=== PATIENT | female | born 2000 | race Caucasian/White ===

== ENCOUNTER 2023-10-26 08:34 | Emergency (ER) | payer BC, SELFPAY ==
[2023-10-26 08:50] VITALS: BP 126/77; PULSE 73; RESP 19; TEMP 36.7; O2SAT 98; BMI 22.4
--- NOTE | 2023-10-26 09:09 | EXP.UTC ---
Discharge Plan Disposition Patient Disposition: Home, Self-Care Condition: Good Prescriptions Prescriptions: No Action No Known Home Medications Referrals Follow up/Referrals: Provider,Referral, [Primary Care Provider] - See instructions Activity Restrictions/Add. Instructions Additional Instructions/Restrictions: Follow up in Clinic as discussed Go straight to the ER if any life threatening symptoms Clinical Impressions Clinical Impression: Fatigue Qualifiers: Fatigue type: unspecified Qualified Code(s): R53.83 - Other fatigue Instructions Patient Instructions: DI for Fatigue Discharge ED Provider: Lucia Harman [facility] [place] HPI General Stated complaint: low bp Mode of Arrival: Ambulatory Source of Information: Patient and Parent(s) Limitations: No Limitations Time Seen by Provider: 10/26/23 09:09 Description of Symptoms (Recalled from Triage Doc. by RN): PATIENT STATES HER BLOOD PRESSURE HAS BEEN LOW FOR THE PAST 2 WEEKS AND IS FEELING FAINT HEENT Symptoms (Recalled from RN notes): No Resp Symptoms (Recalled from RN notes): No Skin Symptoms (Recalled from RN notes): No MS Symptoms (Recalled from RN notes): No Functional Status (Recalled from RN notes): WNL History of Present Illness Provider Complaint: Patient states that she has has felt fatigued on and off for about 2 week and had episodes of dizziness on and off and feeling faint but has not passed out States on Thursday it was worse and mother had her lay down and checked her blood pressure was low on the cuff at home but they wasnt sure if it was accurate and they had her drink some salt water and kept checking her blood pressure and she started feeling better States that today she is feeling better from that and started having some nasal congestion but they wanted to bring her in to have blood tests to check for for anemia and other lab work to check her vitamins and stuff Related Data Home Medications Medication Instructions Recorded Confirmed No Known Home Medications 10/26/23 10/26/23 Allergies Allergy/AdvReac Type Severity Reaction Status Date / Time amoxicillin [From Augmentin] Allergy Verified 10/26/23 10:33 clavulanic acid Allergy Verified 10/26/23 10:33 [From Augmentin] Worker's Comp Is this a Worker's Comp case?: No [facility] Disclaimer: The information contained in this section may have been updated after the patient was seen, as this information can be updated by other users. Medical History (Updated 10/26/23 @ 11:14 by Humera Meadows APRN) JRA (juvenile rheumatoid arthritis) History of anemia Family History (Updated 10/26/23 @ 10:39 by Luly Mueller CMA) Family/Other No significant family history Social History (Updated 10/26/23 @ 10:40 by Luly Mueller CMA) Smoking Status: Never smoker alcohol intake: current substance use type: denies use current occupational status: employed Travel in the last 8 weeks: None ROS Obtained: Yes All systems reviewed & no additional complaints except as documented and Yes Systems reviewed as appropriate & no additional complaints except as documented Constitutional Constitutional: Reports system reviewed and no additional complaints, except as documented, Reports as per HPI, Denies body ache, Denies chills, Reports fatigue, Denies fever(s) and Denies headache(s) Eyes Eyes: Denies loss of vision ENT Ears, Nose, Mouth, and Throat: Reports system reviewed and no additional complaints, except as documented, Reports as per HPI, Denies abnormal hearing, Reports dizziness (on and off for several weeks ) and Denies headache(s) Cardiovascular Cardiovascular: Reports system reviewed and no additional complaints, except as documented, Reports as per HPI, Denies chest pain, Denies dyspnea, Denies edema and Denies syncope Respiratory Respiratory: Reports system reviewed and no additional complaints, except as documented, Reports as per HPI, Denies shortness of breath, Denies chest congestion, Denies cough and Denies dyspnea Gastrointestinal Gastrointestingal: Reports system reviewed and no additional complaints, except as documented, as per HPI and nausea (over the weekend) Genitourinary Female Genitourinary: Reports system reviewed and no additional complaints, except as documented and Reports as per HPI Musculoskeletal Musculoskeletal: Reports system reviewed and no additional complaints, except as documented, Reports as per HPI and Denies numbness Integumentary/Breasts Skin/Breast: Reports system reviewed and no additional complaints, except as documented and Reports as per HPI Neurologic Neurologic: Reports system reviewed and no additional complaints, except as documented, Reports as per HPI, Denies abnormal hearing, Denies abnormal movements, Denies abnormal speech, Denies behavioral changes, Denies confusion, Denies convulsions, Reports dizziness (on and off for several weeks ), Denies headache(s), Denies loss of vision, Denies memory loss, Denies numbness, Denies other visual disturbances, Denies seizure-like activity, Denies syncope and Denies tremor(s) Endocrine Endocrine: Reports system reviewed and no additional complaints, except as documented, Reports as per HPI and Reports fatigue Physical Exam General General appearance: alert and in no apparent distress ENT ENT exam: Present mucous membranes moist Chest Chest inspection: Present normal inspection and symmetric chest wall rise Respiratory Respiratory exam: Present normal lung sounds bilaterally; Absent respiratory distress or wheezes Cardiovascular Cardiovascular exam: Present regular rate, normal rhythm and normal heart sounds Neurological Exam Neurological exam: Present alert, oriented X3 and normal gait Medical Decision Making Santosh Inquiry Pt receiving controlled substance: No Santosh was queried for this patient: No Vital Signs: 10/26/23 08:50 Temperature 98.1 F Temperature Source Oral Pulse Rate [Left Brachial] 73 Respiratory Rate 19 Blood Pressure [Left Arm] 126/77 Blood Pressure Mean [Left Arm] 93 Blood Pressure Source [Left Arm] Automatic Cuff Blood Pressure Position [Left Arm] Sitting 02 Sat by Pulse Oximetry 98 Oxygen Delivery Method Room Air Lab Data 10/26/23 11:33 Medical Decision Narrative: Discussed with patient about transfer to the ED and declined Discussed about speaking with PCP to get lab work done and advised they just moved here and didnt have a PCP Called and spoke with Humera Meadows and told her about patient complaints and requesting of lab work to check vitamins, anemia etc and she advised to send patient to the clinic now for further lab work and evaluation Spoke with patient and mother again and informed them again could send her to the ED for further work up and evaluation but blood pressure and HR within normal limits in the [facility] and she elected to follow up in the Clinic with Humera Meadows for further treatment and evaluation since she is feeling better today but still feeling a little fatigued
[2023-10-26 09:30] VITALS: BP 126/77; PULSE 73; RESP 19; TEMP 36.7; O2SAT 98
[2023-10-26 12:54] LABS: Basophils # 0.1 K/mm3 (0-0.2); Basophils % 1.1 % (0.1-2.0); Eosinophils # 0.6 K/mm3 (0.0-0.4); Eosinophils % 12.1 % (0.1-12.0); Hematocrit 42.9 % (37.0-47.0); Hemoglobin 13.9 g/dL (12.2-16.2); Lymphocytes # 1.8 K/mm3 (0.7-4.5); Lymphocytes % 38.6 % (10-50); Mean Corpuscular HGB Conc 32.3 g/dL (31.8-35.4); Mean Corpuscular Hemoglobin 30.4 pg (27.0-31.2); Mean Corpuscular Volume 93.9 fl (81-99); Mean Platelet Volume 8.1 fl (7.4-10.4); Monocytes # 0.4 K/mm3 (0.1-1.0); Monocytes % 8.8 % (1.7-9.3); Neutrophils # 1.9 K/mm3 (1.8-7.8); Neutrophils % 39.4 % (37.0-80.0); Platelet Count 226 K/mm3 (142-424); Red Blood Count 4.57 M/mm3 (4.20-5.40); Red Cell Distribution Width 12.7 % (11.5-17.5); White Blood Count 4.7 K/mm3 (4.8-10.8)
[2023-10-26 13:24] LABS: Erythrocyte Sedimentation Rate 17 mm/hr (0-20)
[2023-10-26 13:47] LABS: Alanine Aminotransferase 13 U/L (12-78); Albumin Level 4.7 g/dl (3.5-5.0); Albumin/Globulin Ratio 1.5 (1.1-1.8); Alkaline Phosphatase 54 U/L (38-126); Anion Gap 12.1 mEq/L (5-15); Aspartate Amino Transferase 25 U/L (14-36); Bilirubin,Total 0.4 mg/dl (0.2-1.3); Blood Urea Nitrogen 12 mg/dl (7-17); Calcium 9.4 mg/dl (8.4-10.2); Carbon Dioxide 26 mmol/L (22.0-30.0); Chloride 105 mmol/L (98-107); Creatinine Clearance Estimated 133 mL/min (50-200); Estimated Glomerular Filt Rate 124 ml/min (>60); GFR (African American) 150 ML/MIN (>60); Globulin 3.1 g/dL (1.3-3.2); Glucose 70 mg/dl (74-100); Potassium 4.1 mmoL/L (3.5-5.1); Sodium 139 mmol/L (136-145); Total Protein,Serum 7.8 g/dl (6.3-8.2); Uric Acid 2.9 mg/dl (2.5-6.2)
[2023-10-26 14:02] LABS: 25-OH Vitamin D, Total 20.9 ng/mL (30-100)
[2023-10-26 14:16] LABS: Thyroid Stimulating Hormone 0.55 uIU/mL (0.465-4.68)
[2023-10-26 14:36] LABS: Vitamin B12 488 pg/mL (239-931)
[2023-10-26 15:24] LABS: Ferritin 26.2 ng/ml (6.24-137)
[2023-10-27 08:17] LABS: RA Latex Turbid. <10.0 IU/mL (<14.0); Thyroid Peroxidase Antibodies 13 IU/mL (0-34); Triiodothyronine (T3) Free 3.1 pg/mL (2.0-4.4)
[2023-10-27 16:29] LABS: Thyroglobulin Level <1.0 IU/mL (0.0-0.9)
[2023-10-28 08:41] LABS: Antinuclear Antibodies, IFA Positive
[2023-10-29 12:30] LABS: Antinuclear Antibodies (ANA) Negative
== END 2023-10-26 09:36 | disposition home or self-care (01) ==
PROVIDERS: Nurse Practitioner Family; Emergency Provider Nurse Practitioner
DX: M08.00 Unspecified juvenile rheumatoid arthritis of unspecified site (principal); R55 Syncope and collapse; R42 Dizziness and giddiness; R53.83 Other fatigue
CPT/HCPCS: 80053; 82306; 82607; 82728; 84436; 84443; 84481; 84550; 85025; 85651; 86038; 86225; 86235; 86376; 86431; 86800; 99204; 99212; G0463

== ENCOUNTER 2024-09-28 11:53 | Outpatient (CLI) | payer BC, SELFPAY ==
[2024-09-29 12:26] LABS: Progesterone 9.7 ng/mL (.)
== END 2024-09-28 23:59 | disposition home or self-care (01) ==
LOC: LAB 11:54
PROVIDERS: PCP Nurse Practitioner Family; Visit Provider Obstetrics & Gynecology
DX: O36.80X0 Pregnancy with inconclusive fetal viability, not applicable or unspecified (principal)
CPT/HCPCS: 36415; 84144; 84702

== ENCOUNTER 2025-01-02 09:01 | Outpatient (CLI) | payer BC, SELFPAY ==
--- NOTE | 2025-01-02 09:00 | US_ITS ---
PROCEDURE: US OB /MATERNAL DETAIL CLINICAL INDICATION: 2 weeks; 20 week anatomy scan COMPARISON: No exams were available for comparison FINDINGS: Transabdominal sonographic images of the pelvis were obtained. From her established due date she is 20 weeks 0 days. Single viable intrauterine gestation. Cephalic position. Placenta: Posteriorplacenta grade 1. There is an average amount of fluid. The cervix appears satisfactory. Length is not performed. Complete survey performed and was unremarkable on the submitted images as in PACS. No discrete anomalies identified on survey imaging by technologist. Active fetus. Three-vessel cord with satisfactory umbilical cord insertion. 4- chamber heart noted. Situs, aortic arch, LVOT, RVOT, three-vessel view appear normal. Survey of brain & ventricles Unremarkable. Cerebellum, thalamus, choroid plexus, cisterna magna appear normal. Face and neck survey unremarkable. Profile, nasion, lips and nose appeared normal. Diaphragm and chest views unremarkable. Abdomen: Both kidneys noted and unremarkable. Stomach and bladder noted and satisfactory. Spine: Survey of the spine satisfactory with no anomalies identified nor imaged. Cervical, thoracic, lower spine appear normal. Both arms and legs noted. Amniotic Fluid: Adequate. MVP 3.97 cm Measurements: Average ultrasound age 20weeks 2days. Estimated due date by ultrasound age 1005/20/2025. Estimated weight 327g BPD = 20weeks 2days HC = 20weeks 2days AC = 20weeks 0 days FL = 20weeks 1day Growth Percentile= 47 Heart Rate = 153bpm Cerebellum = 20weeks Humerus = 20weeks 2days HC/AC is 1.22 FL/BPD is 0.69 FL/AC is 0.22 IMPRESSION: 1. Viable fetus in the cephalic presentation with a posterior placenta grade 1. 2. The fluid is within normal limits with an MVP 3.97 cm. 3. Anatomical scan appears normal. 4. cardiac four-chamber view was difficult to obtain due to position and would suggest repeat scan in 2-3 weeks. 5. biometry is consistent with the dates. Dictated by: Yves Brand MD 01/02/2025 12:00 Yves Brand MD in [place] 01/02/2025 12:00
== END 2025-01-02 23:59 | disposition home or self-care (01) ==
LOC: RAD 09:02
PROVIDERS: PCP Obstetrics & Gynecology; Visit Provider Obstetrics & Gynecology
DX: O36.1920 Maternal care for other isoimmunization, second trimester, not applicable or unspecified (principal); O21.2 Late vomiting of pregnancy; Z3A.20 20 weeks gestation of pregnancy
CPT/HCPCS: 76811

== ENCOUNTER 2025-01-14 15:42 | Outpatient (CLI) | payer BC, SELFPAY ==
[2025-01-14 16:31] VITALS: BMI 22.8
== END 2025-01-14 16:36 | disposition home or self-care (01) ==
LOC: OBOUT 15:44 → OB 15:45
PROVIDERS: PCP Nurse Practitioner Family; Visit Provider Obstetrics & Gynecology
DX: O26.892 Other specified pregnancy related conditions, second trimester (principal); R68.89 Other general symptoms and signs; Z3A.21 21 weeks gestation of pregnancy
CPT/HCPCS: 99212; G0463

== ENCOUNTER 2025-01-16 08:36 | Outpatient (CLI) | payer BC, SELFPAY ==
--- NOTE | 2025-01-16 08:45 | US_ITS ---
PROCEDURE: US OB FOLLOW UP CLINICAL INDICATION: 2-3 week repeat anatomy for heart views COMPARISON: US US OB /MATERNAL DETAIL from 01/02/2025 FINDINGS: Transabdominal sonographic images of the pelvis were obtained. The following parameters are obtained: From her established due date she is 22weeks 0 days Viable fetus in the cephalic presentation with a posterior placenta grade 1. The cervix measures 2.9 cm heart rate: 152bpm bpm. Amniotic fluid: MVP 2.60 cm. No obvious anomalies evident. profile seen, spine, stomach, bladder, kidneys, three-vessel cord, four chamber heart appear normal. Heart: LVOT, RVOT, three-vessel view and four-chamber heart appear normal. IMPRESSION: 1. Viable fetus in the cephalic presentation with a posterior placenta grade 1. 2. The fluid is within normal limits with an MVP 2.60 cm. 3. cardiac views today appear normal. 4. The rest of the limited anatomical scan appears normal. Dictated by: Yves Brand MD 01/16/2025 15:49 Yves Brand MD in [facility] 01/16/2025 15:49
== END 2025-01-16 23:59 | disposition home or self-care (01) ==
LOC: RAD 08:38
PROVIDERS: PCP Nurse Practitioner Family; Visit Provider Obstetrics & Gynecology
DX: O21.2 Late vomiting of pregnancy (principal); Z3A.22 22 weeks gestation of pregnancy
CPT/HCPCS: 76816

== ENCOUNTER 2025-05-30 11:54 | Outpatient (CLI) | payer BC, MEDICAID, SELFPAY ==
--- OUTSIDE RECORDS SUMMARY | 2025-04-05 09:30 | XMS_ITS | Encounter Summary ---
Author Organization Healthcare Address [address] [place] [address] Care Team Providers Care Partition Making Machine Operator Name Role Phone Humera Meadows APRN Primary Care Provider [phone] Encounter Details Date Type Department Care Team ([facility] Contact Info) Description 04/05/2025 9:30 AM EDT Initial Medical Office Building Obstetrics and Gynecology [address], [address] [place] [address] Connie Orourke APRN, DNP [address] [place] [address] GA: [id number] Social History Tobacco Use Types Packs/Day Years Used Date Smoking Tobacco: Never Passive Smoke Exposure: Never Smokeless Tobacco: Never Tobacco Cessation:Counseling Given: No Alcohol Use Standard Drinks/Week Comments Not Currently 0 (1 standard drink = 0.6 oz pur e alcohol) PHQ-2 Answer Date Recorded Patient Health Questionnaire-2 Score 0 04/05/2025 PHQ-9 Answer Date Recorded Patient Health Questionnaire-9 Score 0 04/05/2025 Nicolaus Depression Scale Answer Date Recorded Nicolaus Depression Scale Total 0 04/05/2025 The thought of harming myself has occurred to me . Never 04/05/2025 Comments Yes Sex and Gender Information Value Date Recorded Sex Assigned at Not on file Legal Sex Female 10:37 AM EDT Gender Identity Not on file Sexual Orientation Straight 03/29/2025 11 :10 AM EDT documented as of this encounter Last Filed Vital Signs Vital Sign Reading Time Taken Comments Blood Pressure 121/83 04/05/2025 9:44 AM EDT Pulse 101 04/05/2025 9:44 AM EDT Temperature - - Respiratory Rate 18 04/05/2025 9:44 AM EDT Oxygen Saturation 98% 04/05/2025 9:44 AM EDT Inhaled Oxygen Concentration - - Weight 65.3 kg (143 lb 15.4 oz) 04/05/2025 9:44 AM EDT Height 165.1 cm (5' 5 ) 04/05/2025 9:44 AM EDT Body Mass Index 23.96 04/05/2025 9:44 AM EDT documented in this encounter Functional Status * Over the past 2 weeks, how often have you been bothered by any of the following problems? Question Answer Date of Assessment Author Little interest or pleasure in doing things Not at all 04/05/2025 9:46 AM Nikki Ambrose Feeling down, depressed, or hopeless Not at all 04/05/2025 9:46 AM Nikki Ambrose Patient Health Questionnaire -2 Score 0 04/05/2025 9:46 AM Nikki Ambrose * Question Answer Date of Assessment Author Trouble falling or staying asleep, or sleeping too much Not at all 04/05/2025 9:46 AM Nikki Ambrose Feeling tired or having princess le energy Not at all 04/05/2025 9:46 AM Nikki Ambrose Poor appetite or overeating Not at all 04/05/2025 9: 46 AM Nikki Ambrose Feeling bad about yourself - or that you are a failure or have let yourself or your family down Not at all 04/05/2025 9:46 AM Nikki Ambrose Trouble concentrating on things, such as reading the newspaper or watching television Not at all 04/05/2025 9:46 AM Nikki Ambrose Moving or speaking so slowly that other people could have noticed? Or the opposite - being so fidgety or restless that you have been moving around a lot more than usual. Not at all 04/05/2025 9:46 AM EDT Nikki Shay Thoughts that you would be better off or hurting yourself in some way Not at all 04/05/2025 9:46 AM EDT Richelle Tirado Patient Health Questionnaire -9 Score 0 04/05/2025 9:46 AM EDT Nikki Tirado * How difficult have these problems made it for you to do your work, take care of things at home, or get along with other people? Answer Date of Assessment Author Not difficult at all 04/05/2025 9:46 AM EDT Nikki Miramontes documented as of this encounter Miscellaneous Notes * Patient Instructions - Connie Orourke APRN, HIRAM - 04/05/2025 9:30 AM EDT Images from the original note were not included. : Your Third Trimester Changes As the baby grows, your body changes, too. You may also see signs that your body is getting ready for labor. Be patient. Within a few more weeks, your baby will be born. How you are changing Your body is preparing for the of your baby. Some of the most common changes are listed below. If you have any questions or concerns, ask your healthcare provider: You???ll gain more weight from fluids, extra blood, and fat deposits. Your breasts will grow as your body gets ready to feed the baby. They may be more tender. You may also notice a slight yellow or white discharge from the nipples. Discharge from your vagina may increase. This is normal. You might see some skin color changes on your forehead, cheeks, or nose. Most of these will go awayafter you deliver. You may have symptoms such as heartburn, trouble sleeping, and some shortness of breath due to the growing fetus. Your belly button may stick out. Near term, you may feel the baby dropping or moving downward toward the pelvis. You may get hemorrhoids from pressure of the growing baby on rectal veins. How your baby is growing Month 7 Your baby can open and close their eyes and weighs around 4 pounds (1.8 kg). The baby's bones are fully formed but soft. The baby's movements are pretty forceful. The hair on your baby's body called lanugo, starts to fall off. The lungs are not fully developed, but practice breathing movements occur. Month 8 Your baby is building up body fat and weighs around 6 pounds (2.7 kg). The protective waxy coating around the baby called vernix, gets thicker. Your baby is now getting bigger and has more fat stores. Due to reduced space in the uterus, the baby's movements may become less forceful. But you will still feel the wiggles and stretches as your little one moves. Month 9 Your baby weighs nearly 7 pounds (3.2 kg) and is about 19 to 21 inches long. The baby's organs are ready to function on their own. In most pregnancies, the baby may turn into a head-down (cephalic) position for as the due date approaches. In other words, any day now... When to call your healthcare provider Seek medical help right away for any of the following: Reduced or absent movements Bleeding or excess watery discharge from the vagina Excessive swelling in your feet, legs, or other areas of your body Severe headache, nausea, rash, bleeding from any site, or yellowing of the eyes or skin Severe belly pain or contractions Fever Adapting to : Third Trimester Although common during , some discomforts may seem worse in the final weeks. Simple lifestyle changes can help. Take care of yourself. And ask your partner to help out with small tasks. Limiting leg problems Ways to combat leg issues: Wear support hose all day. Don't wear snug shoes or clothes that bind, such as tight pants and socks with elastic tops. Sit with your feet and legs raised often. Caring for your breasts Tips to follow include: Wash with plain water. Don't use harsh soaps or rubbing alcohol. They may cause dryness. Wear a nursing bra for extra support. It can also hide any leaks from your nipples. Controlling hemorrhoids Ways to prevent hemorrhoids include: Eat foods that are high in fiber. Also exercise and drink enough fluids. This will reduce constipation and hemorrhoids. Sleep and nap on your side. This limits pressure on the veins of your rectum. Try not to stand or sit for long periods. Controlling back pain As your body changes during , your back must work in new ways. Back pain has many causes. Physical changes in your body can strain your back and its supporting muscles. Also hormones increase during . This can affect how your muscles and joints work together. All of these changes can lead to pain. Pain may be felt in the upper or lower back. Pain is also common in the pelvis. Some womenhave sciatica. This is pain caused by pressure on the sciatic nerve running down the back of the leg. Ice or heat may help. Your provider may advise massage therapy or a chiropractor. Sleep on your left side with a pillow between your knees. Use a brace or support device. Ask your provider for speci fic tips and exercises to help control your back pain. Tips to help you rest Good rest and sleep will help you feel better. Here are some ideas: Ask your partner to massage your shoulders, neck, or back. Limit the errands you do each day. Lie down in the afternoon or after work for a few minutes. Take a warm bath before you go to sleep. Drink warm milk or teas without caffeine. Don't drink coffee, black tea, and cola. Stopping heartburn Don't eat spicy, greasy, fried, or acidic foods. Eat small amounts more often. Eat slowly. Wait 2 hours after eating before lying down. Sleep with your upper body raised 6 inches. Managing mood swings Ways to manage mood swings include: Know that mood changes are normal. Exercise often, but get plenty of rest. Address any concerns and limit stress. Talking to your partner, other women, or your healthcare provider may help. Dealing with urinary frequency Tips to deal with having to urinate often include: Drink plenty of water all day. But if you drink a lot in the evening, you may have to get up more in the night. Limit coffee, black tea, and cola. How daily issues affect your health Many things in your daily life impact your health. This can include transportation, money problems,housing, access to food, and children's tutor. If you can???t get to medical appointments, you may not receive the care you need. When money is tight, it may be difficult to pay for medicines. And living far from a grocery store can make it hard to buy healthy food. If you have concerns in any of these or other areas, talk with your healthcare team. They may know of local resources to assist you. Or they may have a staff person who can help. Reasons to Come to the Hospital or Call Your Doctor During Your Reasons to come to the hospital Contractions every 5 minutes for 1 hour if greater than 37 weeks* Contractions every 10 minutes for 1 hour if less than 37 weeks* * Time contractions from the beginning of one contraction to the beginning of the next contraction. Your water breaks Vaginal bleeding like you???re having a period No movements in 2 hours when fetus is normally active Vomiting for 24 hours Any kind of fall or car accident Any sign your blood pressure may be high or that you may have preeclampsia, such as: a headache that doesn???t go away after taking Tylenol vision problems such as flashes or spots rapid weight gain belly (abdominal pain) on your right side swelling (edema) in your face or hands: this also often happens near the end of normal pregnancies,even without preeclampsia Reasons to call your doctor Symptoms of urinary tract infection (burning with urination) Fever greater than 100.5??F by mouth Flu-like symptoms Abnormal vaginal discharge Phone Numbers [facility] ([facility]): [facility] Obstetrics & Gynecology: [facility]: [facility]: Family Practice: [facility] Obstetrics & Gynecology [place]: [facility] Obstetrics & Gynecology [place]: What Is Group B Strep? Group B strep (streptococcus) is a common type of bacteria. It can grow in the vagina, rectum, or urinary tract. It most often does not cause harm in adults. But in rare cases, a person who has group B strep can infect the baby during . This can cause serious illness in the . But treatment during labor reduces the risk of the baby becoming infected. And if a gets group B strep, the infection can be treated. Facts about group B strep Learning more about group B strep can help you understand how testing and treatment can help. Here are some basic facts about group B strep: It's not a sexually transmitted infection. It's not the same as strep throat. (That is caused by group A strep.) It often has no symptoms. It may cause no problems in adults. Test results can be misleading. They may be negative one week and positive the next week. Group B strep can be spread to the baby during vaginal delivery. It can't be passed during (surgical) . A person with group B strep rarely infects the . (Infection happens only about 1% to 2% of the time.) When a person is treated during labor and delivery, the baby almost never becomes infected. Certain factors during increase the risk of a baby becoming infected. Possible effects on your baby Group B strep can infect the blood. It can also cause inflammation of the baby???s lungs, brain, orspinal cord. Long-term effects can include blindness, deafness, mental retardation, or cerebral palsy. And in rare cases, infection causes . Infection is most often found soon after the baby is born. How your baby may become infected Group B strep often lives in the vagina or rectum. If the amniotic sac breaks early, bacteria from the vagina can travel to the uterus, reaching the baby. Or, while passing through the canal, the baby can come in contact with the bacteria. In rare cases, group B strep can be passed to the baby after delivery. This is called late-onset group B strep. The source of this type of infection is not well-understood. But some experts believe that it happens if the baby is exposed to group B strepin the home, from the parents or siblings, or in the community. What increases the risk? Certain things increase the chance that a baby will be infected. They include: Breaking or leaking of the amniotic sac before 37 weeks of Labor before 37 weeks of Breaking of the amniotic sac more than 18 hours before labor starts Fever during labor A urinary tract infection with group B strep at any point in the Having a previous baby born with a group B strep infection Treating Group B Strep Testing and treatment of group B strep in your can help prevent your baby from becoming infected during . If your baby has complications due to group B strep, they may need special treatments. Early treatment gives the best chance of a good outcome. Testing Testing for the bacteria is painless. This is most often during weeks 36 through 37 of . For the test, your healthcare provider uses cotton swabs to take samples from your vagina and anus. These samples are sent to the lab. Your provider will get your test results about 2 days later. Results show if you have group B strep. To test for Group B strep, your healthcare provider takes swabs from your vagina and anus during a pelvic exam. Treatment If you have group B strep, you'll be treated with IV antibiotics. These are given through a flexible tube (catheter) in a vein in your arm or hand. You may be treated if you have not been tested but you have risk factors. The treatment is not done until you start labor. This lets the medicine protect your baby during and after . Group B strep can come back after treatment. So IV antibiotics are started during labor and also given during delivery. This should not affect the course of labor. If group B strep is diagnosed in your urine, you'll be given medicine at that time to protect you from infections of the urinary tract. After the , your baby will be observed in the hospital for 24 to 48 hours. This is to make sure that they have not been infected. Your baby???s blood may also be tested. In newborns, most cases of group B strep infection are found before the mother and baby go home. But in very rare cases, a baby may get a group B strep infection after going home. This is called a late-onset infection. Call your baby???s healthcare provider right away if your baby: Has a fever Is refusing to feed Seems stressed or is fussy and can???t be calmed Has breathing trouble Has a very fast, very low, or irregular heart rate Beginning to Breastfeed: Ctmu-ij-Ccae What is onur-tv-advo? After , your nurse will clean and dry your baby. Your baby will then be placed on your chest blpg-nz-lpir right away. Your baby???s shoulders should be against your chest, knees flexed, and headturned to the side. Your baby's head should be tilted slightly back in what is called the ???sniffing position.?? Your nurse will diaper your baby and cover you both with warm blankets. This is the best way to keep babies warm after being born. Babies are very alert right after . Your baby may actually ???crawl?? into position to breastfeed for the first time. Your baby will stay ziqb-ub-coki with you for as long as you like after . If you get too sleepy, let your nurse know. Only you or your partner can do hxgc-qi-oeqy with your baby these first few hours. Visitors may come in, but you must not pass your baby around during this time. This could cause your baby to get cold and then sick. Zoxd-ff-qkyb is a great way to remind your baby how to breast feed. It is also a way to comfort a crying baby, even after you go home. But if you get sleepy, put your baby back in the crib or have your partner or family member take her or him. Falling asleep with your baby can be dangerous. Your baby might get into a position where she or he cannot breathe. Nursing your baby will help reduce your bleeding after . It also lowers your risk of depression. Being zcpe-wn-iely with your baby can help reduce your pain after delivery. How will I know if my baby is hungry? Don???t wait until your baby cries to nurse. Newborns should be nursed as soon as they show a hunger sign. Here are some common hunger signs: Being more alert or active Rooting reflex - nuzzling against your breast Lips smacking or mouth opening and closing Sucking on hand or fingers Crying How often should I feed my baby? Your baby???s stomach is the size of a small marble at . By Day 3, it is the size of a shootermarble. By Day 10, the stomach grows to the size of a ping- pong ball. This is why babies eat so often. They can only hold a little bit of food until their stomach grows. You should nurse as often and as long as your baby wants. Most babies nurse 8-12 times in 24 hours.This means they should eat at least every 3 hours. Sometimes babies cluster feed every hour as theylearn to breastfeed, or sometimes you may need to wake your baby for feedings. Babies will eat moreoften during a growth spurt, and you may think you aren???t making enough milk. But don???t worry. Y our baby will not need formula or supplements. Your body will get your baby???s message from the extra feedings and make more milk to keep your baby growing. Most newborns need a lot of sleep. If your baby fusses when feeding, don???t worry. Some babies areeasy to distract. Here are some tips to calm your baby for nursing: Choose a quiet place for feeding. Placing your baby in the ndxp-rq-goma position on your chest. This can help your baby calm down andremember how to breastfeed. It may also help if you breastfeed in the same place in your home each time. How much attention should I give my baby? Infants can???t be spoiled. Your baby will let you know when comfort, food, or holding is needed. When you respond to your baby???s needs, you build trust. This is a time to shower your baby with love and attention. What is Rooming In? While you are in the hospital, we will try to keep your baby with you in your room 24 hours a day. We call this Rooming In. This will help you learn what your baby needs. Your nurse will help you learn to care for your baby. Consultants are specially trained nurses. They will help you with positions. They will also help you get your baby to latch on correctly. [facility] can help with any breast feeding problems after you go home. Choosing a Doctor for Baby - Video Choosing a Doctor for Baby Please use the QR Code to watch the video * Progress Notes - Connie Orourke APRN, DNP - 04/05/2025 9:30 AM EDT Initial Note Subjective Meena Julian is a 24 y.o. presenting for an initial visit. She is NAE from [place] at 33 2/7. Denies VB, LOF. +FM. Intermittent RUQ and RLQ pain that lasts for approximately 1 day. Heating pack and position changescan be helpful. Not having symptoms today. Sometimes has associated nausea. Not having any pain today. From record review: 24yo LMP: 08/15/2024 POLLY: 05/22/2025 1st Tri BMI: 21.2 US: 10/04/2024 - TVUS in provider documentation (no report). Single IUP @ 7.2 weeks, normal yolk sac. [id number]. Measurements consistent with LMP. 01/02/2025 - Anatomy Scan; 20.0 weeks, [place], posterior placenta-Grade 1, KATHERINE WNL, MVP 3.97cm, [id number] (47%), 3VC with satisfactory insertion, FHR 153bpm, anatomy appears normal. 01/16/25 - Follow-up for cardiac 4 chamber view. CL 2.9cm, FHR 152bpm, MVP 2.60cm, cephalic, cardiacviews appear normal. 09/28/24 Labs: Beta hC Progesterone: 9.7 10/04/2024 Labs: PAP Negative STI Testing: Chlamydia and Gonorrheae Negative Urine Dip: 100++ Protein 12/19/2024 Labs: Urine Dip: 30+ protein OB History Para Term AB Living 1 SAB IAB Ectopic Multiple Live Births # Outcome Date GA Lbr Amor/2nd Weight Sex Type Anes PTL Lv 1 Current Nicolaus Depression Scale Total: 0 Past Medical History She has a past medical history of Juvenile arthritis. Past Surgical History She has no past surgical history on file. Social History She reports that she has never smoked. She has never been exposed to tobacco smoke. She has never used smokeless tobacco. She reports that she does not currently use alcohol. She reports that she does not use drugs. Family History Her family history is not on file. Allergies She is allergic to bee venom and augmentin [amoxicillin-pot clavulanate]. Current Medications She has a current medication list which includes the following prescription(s): multiple vitamins-minerals. Review of Systems See HPI, otherwise neg Objective Physical Exam Visit Vitals BP 121/83 (BP Location: Left arm, Patient Position: Sitting, BP Cuff Size: Adult) Pulse 101 Resp 18 Pregravid weight: Pregravid weight not on file Pregravid BMI: Could not be calculated Body mass index is 23.96 kg/m??. See encounter summary and flowsheet for exam details. Assessment/Plan Assessment & Plan Encounter for supervision of normal first in third trimester RTC in 2 weeks [address] of OB ED and precautions Given initial folder OB labs not in media tab, plan to sign LATRICE at checkout Orders: OB US Limited; Future documented in this encounter Plan of Treatment Not on file documented as of this encounter Visit Diagnoses Diagnosis Encounter for supervision of normal first in third trimester- Primary documented in this encounter Additional Health Concerns Assessment Noted Time PHQ-9 Depression Total Score: 0 04/05/20 9:46 AM EDT A Body Mass Index follow-up plan has been documented for the patient 04/05/2025 11:03 AM EDT documented as of this encounter Care Teams Partition Making Machine Operator Relationship Specialty Start Date End Date Humera Meadows APRN [address] [place] [address] PCP - General 04/05/25 documented as of this encounter
--- OUTSIDE RECORDS SUMMARY | 2025-04-13 11:00 | XMS_ITS | Encounter Summary ---
Author Organization Healthcare Address [address] [place] [address] Care Team Providers Care Teller Coordinator Name Role Phone Humera Meadows APRN Primary Care Provider +1- [phone] Reason for Visit * Imaging (Routine) - Closed Specialty Diagnoses / Procedures Referred By Michelle heard Referred To Contact Diagnoses Encounter for supervision of normal first in third trimester Procedures OB US 14+ Weeks Anatomy Scan OB US Limited Connie Orourke APRN, DNP [address] [facility] [address] [place] [address] Phone: tel: fax: Referral ID Status Reason Start Date Expiration Date Visits Re quested Visits Authorized [id number] Closed 04/05/2025 10/05/2026 1 1 Encounter Details Date Type Department Care Team (Latest Contact Info) Description 04/13/2025 11:00 AM EDT - 04/13/2025 11:59 PM EDT Hospital Encounter Medical Office Building Obstetrics and Gynecology [address] [facility], [address] [place] [address] Encounter for supervision of normal first in third trimester Discharge Disposition: Home or Self Care Social History Tobacco Use Types Packs/Day Years Used Date Smoking Tobacco: Never Passive Smoke Exposure: Never Smokeless Tobacco: Never Alcohol Use Standard Drinks/Week Comments Not Currently 0 (1 standard drink = 0.6 oz pur e alcohol) PHQ-2 Answer Date Recorded Patient Health Questionnaire-2 Score 0 04/05/2025 PHQ-9 Answer Date Recorded Patient Health Questionnaire-9 Score 0 04/05/2025 [place] Depression Scale Answer Date Recorded [place] Depression Scale Total 0 04/05/2025 The thought of harming myself has occurred to me . Never 04/05/2025 Comments Yes Sex and Gender Information Value Date Recorded Sex Assigned at Not on file Legal Sex Female 10:37 AM EDT Gender Identity Not on file Sexual Orientation Straight 03/29/2025 11 :10 AM EDT documented as of this encounter Medications at Time of Discharge Multiple Vitamins-Minerals (HM MULTIVITAMIN ADULT GUMMY PO) Take by mouth. documented as of this encounter Plan of Treatment Not on file documented as of this encounter Procedures Procedure Name Priority Date/Time Associated Diagnosis Comments OB US 14+ WEEKS ANATOMY SCAN Routine 04/13/2025 11:42 AM EDT Encounter for supervision of normal first in third trimester documented in this encounter Results * OB US 14+ Weeks Anatomy Scan (04/13/2025 11:42 AM EDT) Anatomical Region Laterality Modality Body Ultrasound 04/13/2025 11:2 3 AM EDT Impressions 04/13/2025 11:52 AM EDT The OB Ultrasound you requested has been resulted. Please navigate to the Imaging tab in MyPrint[employer] for review. This message has been generated by the interface. Narrative Procedure Note Roxi Seo MD - 04/13/2025 IMPRESSION: The OB Ultrasound you requested has been resulted. Please navigate to theImaging tab in [employer] for review. This message has been generated by theinterface. us Connie Orourke APRN, DNP IMG OB US PROCEDURES Final Result documented in this encounter Visit Diagnoses Diagnosis Encounter for supervision of normal first in third trimester documented in this encounter Additional Health Concerns Assessment Noted Time PHQ-9 Depression Total Score: 0 04/05/20 25 9:46 AM EDT A Body Mass Index follow-up plan has been documented for the patient 04/05/2025 11:03 AM EDT documented as of this encounter Care Teams Teller Coordinator Relationship Specialty Start Date End Date Humera Meadows APRN [address] [place] [address] PCP - General 04/05/25 documented as of this encounter
--- OUTSIDE RECORDS SUMMARY | 2025-04-20 08:30 | XMS_ITS | Encounter Summary ---
Author Organization Healthcare Address [address] [place] [address] Care Team Providers Care Fellmongering Machine Operator Name Role Phone Humera Meadows APRN Primary Care Provider +1- [phone] Reason for Visit * Reason Comments Routine Visit Encounter Details Date Type Department Care Team (Latest Contact Info) Description 04/20/2025 8:30 AM EDT Routine Medical Office Building Obstetrics and Gynecology [address] [facility], [address] [place] [address] Connie Orourke APRN, DNP [address] [facility] [address] [place] [address] Encounter for supervision of normal [...] Recorded Patient Health Questionnaire-9 Score 0 04/05/2025 [place] Depression Scale Answer Date Recorded [place] Depression Scale Total 0 04/05/2025 The thought [...] Instructions - Connie Orourke APRN, HIRAM - 04/20/2025 8:30 AM EDT Images [...] transportation, money problems,housing, access to food, and director of early childhood. If you can???t get to medical appointments, [...] discharge Phone Numbers [facility] (Triage): [facility] Obstetrics & Gynecology: [facility] Clinic: [facility] Clinic: Family Practice: [facility] Obstetrics & Gynecology [place]: [facility] Obstetrics & Gynecology [place]: What Is Group B Strep? Group B [...] or irregular heart rate Beginning to Breastfeed: Wowm-uo-Gcdr What is amun-wp-ihyk? After , your nurse will clean and dry your baby. Your baby will then be placed on your chest jggy-gq-ookm right away. Your baby???s shoulders should be [...] the first time. Your baby will stay kygf-sc-rovx with you for as long as you like after . If you get too sleepy, let your nurse know. Only you or your partner can do tbki-rn-jwjb with your baby these first few hours. Visitors may come in, but you must not pass your baby around during this time. This could cause your baby to get cold and then sick. Lsaz-jr-aqtl is a great way to remind your [...] also lowers your risk of depression. Being tsez-iq-iygk with your baby can help reduce your [...] for feeding. Placing your baby in the ourz-ad-ygmy position on your chest. This can help [...] a visit. She was a NAE from [place] at 33 09/09. Denies VB, LOF, cramping, [...] IUP @ 7.2 weeks, normal yolk sac. [id number]. Measurements consistent with LMP. 01/02/2025 - Anatomy Scan; 20.0 weeks, Cepahlic, posterior placenta-Grade 1, KATHERINE WNL, MVP 3.97cm, [id number] (47%), 3VC with satisfactory insertion, FHR 153bpm, [...] NO known Syphilis) (05/03/2025 4:09 PM EDT) [facility] Syphilis Antibody (IgG+IgM) Nonreactive Nonreactive 05/03/2025 6:36 PM EDT [facility] Comment:Nonreactive. No sero logic evidence of syphilis. No follow-up necessary unless clinically indicated (e.g., early syphilis). Blood Venous blood specimen / Unknown Venipuncture / Unknown 05/03/2025 4:09 PM EDT 05/03/2025 4:09 PM EDT Connie Orourke APRN, HIRAM LAB BLOOD ORDERABLES Final Result Performing Organization Address City/[facility]/ZIP Co de Phone Number [facility] [address] [place] [address] * Hepatitis C Antibody w/Reflex to HCV Quant PCR (05/03/2025 4:09 PM EDT) [facility] Hepatitis C Antibody Negative Negative 05/03/2025 5:52 PM EDT [facility] Blood Venous blood specimen / Unknown Venipuncture / Unknown 05/03/2025 4:09 PM EDT 05/03/2025 4:09 PM EDT Connie Orourke APRN, HIRAM LAB BLOOD ORDERABLES Final Result Performing Organization Address City/[facility]/ZIP Co de Phone Number [facility] [address] [place] [address] * Hepatitis B Surface Antigen (05/03/2025 4:09 PM EDT) Hepatitis B Surf Antigen Negative Negative 05/03/2025 6:36 PM EDT [facility] Blood Venous blood specimen / Unknown Venipuncture / Unknown 05/03/2025 4:09 PM EDT 05/03/2025 4:09 PM EDT Connie Orourke APRN, DNP LAB BLOOD ORDERABLES Final Result Performing Organization Address City/[facility]/ZIP Co de Phone Number [facility] [address] [place] [address] * Type and Screen (05/03/2025 4:09 PM EDT) Pathologist [facility] ABO/Rh O Positive 05/03/2025 5:21 PM EDT BLOOD BANK Antibody Screen Negative 05/03/2025 5:21 PM EDT BLOOD BANK Specimen Expiration 05/06/2025 23:59 05/03/2025 5:21 PM EDT [facility]LOOD BANK Blood Venous blood specimen / Unknown Venipuncture / Unknown 05/03/2025 4:09 PM EDT 05/03/2025 4:09 PM EDT Connie Orourke APRN, DNP LAB BLOOD BANK TEST O RDERABLES Final Result Performing Organization Address City/[facility] Co de Phone Number BLOOD BANK [address] [place] [address], * (ABNORMAL) CBC W/O Differential (05/03/2025 4:09 PM EDT) WBC Count 10.40(H) 3.70 - 10.30 10*3/uL LAB HEMATOLOGY METHOD 05/03/2025 5:21 PM EDT [facility] RBC Count 3.73(L) 3.90 - 5.20 10*6/uL LAB HEMATOLOGY METHOD 05/03/2025 5:21 PM EDT [facility] HGB 10.8(L) 11.2 - 15.7 g/dL LAB HEMATOLOGY METHOD 05/03/2025 5:21 PM EDT [facility] HCT 34.1 34.0 - 45.0 % LAB HEMATOLOGY METHOD 05/03/2025 5:21 PM EDT [facility] Platelet Count 200 155 - 369 10*3/uL LAB HEMATOLOGY METHOD 05/03/2025 5:21 PM EDT [facility] MCV 91 79 - 98 fL LAB HEMATOLOGY METHOD 05/03/2025 5:21 PM EDT [facility] MCH 29.0 26.0 - 32.0 pg LAB HEMATOLOGY METHOD 05/03/2025 5:21 PM EDT [facility] MCHC 31.7 30.7 - 35.5 g/dL LAB HEMATOLOGY METHOD 05/03/2025 5:21 PM EDT [facility] RDW 13.6 11.5 - 14.5 % LAB HEMATOLOGY METHOD 05/03/2025 5:21 PM EDT [facility] MPV 12.1 8.8 - 12.5 fL LAB HEMATOLOGY METHOD 05/03/2025 5:21 PM EDT [facility] nRBC 0.0 <=0.0 per 100 WBCs LAB HEMATOLOGY METHOD 05/03/2025 5:21 PM EDT [facility] Blood Venous blood specimen / Unknown Venipuncture / Unknown 05/03/2025 4:09 PM EDT 05/03/2025 4:09 PM EDT Connie Orourke APRN, DNP LAB BLOOD ORDERABLES Final Result [facility] [address] [place] [address] * (ABNORMAL) Rubella Antibody IgG (05/03/2025 4:09 PM EDT) [facility] Rubella Antibody IgG Positive(A ) Negative 05/03/2025 7:50 PM EDT [facility] Comment: Rubella IgG Result Interpretation: Negative: [...] APRN, DNP LAB BLOOD ORDERABLES Final Result [facility] [address] [place] [address] documented in this encounter Visit Diagnoses Diagnosis Encounter for supervision of normal first in third trimester- Primary documented in this encounter Additional Health Concerns Assessment Noted Time PHQ-9 Depression Total Score: 0 04/05/20 9:46 AM EDT A Body Mass Index follow-up plan has been documented for the patient 04/20/2025 9:45 AM EDT documented as of this encounter Care Teams Fellmongering Machine Operator Relationship Specialty Start Date End Date Humera Meadows APRN [address] [place] [address] PCP - General 04/05/25 documented as of this encounter
--- OUTSIDE RECORDS SUMMARY | 2025-04-27 08:40 | XMS_ITS | Encounter Summary ---
Author Organization Healthcare Address [address] [place] [address] Care Team Providers Care Editor School Photograph Name Role Phone Humera Meadows APRN Primary Care Provider +1- [phone] Reason for Visit * Reason Comments Routine Visit Encounter Details Date Type Department Care Team ([facility] Contact Info) Description 04/27/2025 8:40 AM EDT Routine Medical Office Building Obstetrics and Gynecology [address], [address] [place] [address] Belia Mcgregor APRN, [facility] [address] [place] [address] care, first , antepartum (Primary [...] Recorded Patient Health Questionnaire-9 Score 0 04/05/2025 [place] Depression Scale Answer Date Recorded [place] Depression Scale Total 0 04/05/2025 The thought [...] transportation, money problems,housing, access to food, and children teacher. If you can???t get to medical appointments, [...] discharge Phone Numbers [facility] (Triage): [facility] s [facility] Obstetrics & Gynecology: [facility] Clinic: Workforce Management Consultant Clinic: Family Practice: [facility] Obstetrics & Gynecology [place]: [facility] Obstetrics & Gynecology [place]: What Is Group B Strep? Group B [...] or irregular heart rate Beginning to Breastfeed: Zbpu-fj-Ggxk What is wobr-qa-fbzv? After , your nurse will clean and dry your baby. Your baby will then be placed on your chest wuoq-iy-dvtc right away. Your baby???s shoulders should be [...] the first time. Your baby will stay gpzm-qc-lyit with you for as long as you like after . If you get too sleepy, let your nurse know. Only you or your partner can do uqrg-zr-rxfs with your baby these first few hours. Visitors may come in, but you must not pass your baby around during this time. This could cause your baby to get cold and then sick. Whde-on-bkjm is a great way to remind your [...] also lowers your risk of depression. Being zrbw-ow-lsze with your baby can help reduce your [...] for feeding. Placing your baby in the rftg-tp-cwwd position on your chest. This can help [...] The patient [facility]. She has [...] antepartum - Primary Overview Late NAE from [place] Delivery planning: [place], ? Epidural, formula, condoms for contraception Declined Tdap and RSV US: 10/04/2024 - TVUS in provider documentation (no report). Single IUP @ 7.2 weeks, normal yolk sac. [id number]. Measurements consistent with LMP. 01/02/2025 - Anatomy Scan; 20.0 weeks, Cepahlic, posterior placenta-Grade 1, KATHERINE WNL, MVP 3.97cm, [id number] (47%), 3VC with satisfactory insertion, FHR 153bpm, [...] Group B isolated 04/30/2025 12:31 PM EDT [facility] Swab Rectovaginal / Unknown Non-blood Collection / Unknown 04/27/2025 9:09 AM EDT 04/27/2025 9:09 AM EDT us Belia Mcgregor APRN, DNP LAB MICROBIOLOGY - GENE RAL ORDERABLES Final Result [facility] [address] [place] [address] * (ABNORMAL) Group B Streptococcus by PCR (04/27/2025 9:09 AM EDT) Group B Streptococcus PCR Result Detected( A) Not Detected 04/29/2025 9:46 AM EDT [facility] Comment:Note: If your patien t has a penicillin allergy, please contact the laboratory [phone] to perform antibiotic susceptibility testing. The specimen will be saved for one month. Swab Rectovaginal / Unknown Non-blood Collection / Unknown 04/27/2025 9:09 AM EDT 04/27/2025 9:09 AM EDT Narrative [facility] - 04/29/2025 9:46 AM EDT This [...] RAL ORDERABLES Final Result Performing Organization Address City/State/[facility] Co de Phone Number [facility] [address] [place] [address] documented in this encounter Visit Diagnoses Diagnosis care, first , antepartum- Primary documented in this encounter Additional Health Concerns Assessment Noted Time PHQ-9 Depression Total Score: 0 04/05/20 9:46 AM EDT A Body Mass Index follow-up plan has been documented for the patient 05/03/2025 10:46 AM EDT documented as of this encounter Care Teams Editor School Photograph Relationship Specialty Start Date End Date Humera Meadows APRN [address] [place] [address] PCP - General 04/05/25 documented as of this encounter
--- OUTSIDE RECORDS SUMMARY | 2025-05-03 15:15 | XMS_ITS | Encounter Summary ---
Author Organization Healthcare Address [address] [place] [address] Care Team Providers Care Cupola Liner Name Role Phone Humera Meadows APRN Primary Care Provider +1- [phone] Reason for Visit * Reason Comments Routine Visit Encounter Details Date Type Department Care Team ([facility] Contact Info) Description 05/03/2025 3:15 PM EDT Routine Medical Office Building Obstetrics and Gynecology [address], [address] [place] [address] Vickie Luevano MD [address] [place] [address] care, first , antepartum (Primary [...] Recorded Patient Health Questionnaire-9 Score 0 04/05/2025 [place] Depression Scale Answer Date Recorded [place] Depression Scale Total 0 04/05/2025 The thought [...] IUP @ 7.2 weeks, normal yolk sac. [id number]. Measurements consistent with LMP. 01/02/2025 - Anatomy Scan; 20.0 weeks, Cepahlic, posterior placenta-Grade 1, KATHERINE WNL, MVP 3.97cm, [id number] (47%), 3VC with satisfactory insertion, FHR 153bpm, [...] sex: Female Delivery [facility] I am having Meena Julian maintain her Multiple Vitamins-Minerals (HM MULTIVITAMIN ADULT GUMMY PO). Reviewed routine labor precautions. F/u in 1 week. Pardeep Kong MS4 Cosigned by Vickie Luevano MD at 05/03/2025 9:48 PM EDT Associated attestation - Vickie Luevano MD - 05/03/2025 9:48 PM EDT I saw and evaluated the patient with the medical/DISPATCH OFFICER/PA student. I discussed the case with the medical/DISPATCH OFFICER/PA student and agree with the findings and [...] documented as of this encounter Care Teams Cupola Liner Relationship Specialty Start Date End Date Humera Meadows APRN [address] [id number] PCP - General 04/05/25 documented as of this encounter
--- OUTSIDE RECORDS SUMMARY | 2025-05-10 15:30 | XMS_ITS | Encounter Summary ---
Author Organization Healthcare Address [address] [place] [address] Care Team Providers Care Band Manager Name Role Phone Humera Meadows APRN Primary Care Provider [phone]- [phone] Reason for Visit * Reason Comments Routine Visit Encounter Details Date Type Department Care Team ([facility] Contact Info) Description 05/10/2025 3:30 PM EDT Routine Medical Office Building Obstetrics and Gynecology [address], [address] [place] [address] Mayuri Husain APRN [address] [place] [address] 38 weeks gestation of (Primary [...] Recorded Patient Health Questionnaire-9 Score 0 04/05/2025 [place] Depression Scale Answer Date Recorded [place] Depression Scale Total 4 05/13/2025 The thought [...] drink first t sparkle in the morning (EYE-ENAMEL FINISHER) to steady your nerves or to get [...] EDT Routine Care: Third Trimester Meena Julian: [id number] Meena Julian is a at 38w2d who presents to clinic today for a routine OB appointment. Subjective Denies concerns today. +FM. Feeling well overall. Roberta Cooley contractions, nothing regular yet. Reviewed precautions [...] 38w2d Discussed Healthy practices. Late NAE from [place] Delivery planning: HUNTER, ? Epidural, formula, condoms for contraception Declined Tdap and RSV US: 10/04/2024 - TVUS in provider documentation (no report). Single IUP @ 7.2 weeks, normal yolk sac. [id number]. Measurements consistent with LMP. 01/02/2025 - Anatomy Scan; 20.0 weeks, [place], posterior placenta-Grade 1, KATHERINE WNL, MVP 3.97cm, [id number] (47%), 3VC with satisfactory insertion, FHR 153bpm, anatomy appears normal. 01/16/25 - Follow-up for cardiac 4 chamber view. CL 2.9cm, FHR 152bpm, MVP 2.60cm, cephalic, cardiacviews appear normal. 10/04/2024 Labs: PAP Negative STI Testing: Chlamydia and Gonorrheae Negative RTC 1 week. Mayuri Husain APRN Department of Obstetrics & Gynecology [facility] documented in this encounter Plan of [...] documented as of this encounter Care Teams Band Manager Relationship Specialty Start Date End Date Humera Meadows APRN [address] [place] [address] PCP - General 04/05/25 documented as of this encounter
--- OUTSIDE RECORDS SUMMARY | 2025-05-11 18:39 | XMS_ITS | Encounter Summary ---
Author Organization Healthcare Address [address] [id number] Care Team Providers Care It Security Engineer Name Role Phone Humera Meadows APRN Primary Care Provider [phone]- [phone] Reason for Visit * Reason Comments vision changes Hypertension Abdominal Pain Decreased Movement * Auth/Cert (Routine) Specialty Diagnoses / Procedures Referred By Contac t Referred To Contact Diagnoses Pre-eclampsia in third trimester Fredi Duncan MD [address] [address] Phone: tel: fax: [facility] [address] [place] [address] Phone: tel: Referral ID Status Reason Start Date Expiration Date Visits Re quested Visits Authorized [id number] 1 1 Encounter Details Date Type Department Care Team (Late st Contact Info) Description 05/11/2025 6:39 PM EDT - 05/15/2025 1:42 PM EDT Hospital Encounter [facility] [address] [place] [address] Fredi Duncan MD [address] [address] Serena Hare MD [address] [address] Discharge Disposition: Home or Self [...] Recorded Patient Health Questionnaire-9 Score 0 04/05/2025 [place] Depression Scale Answer Date Recorded [place] Depression Scale Total 0 05/22/2025 The thought [...] drink first t sparkle in the morning (EYE-CASH APPLICATIONS SPECIALIST) to steady your nerves or to get [...] Behavior (Lifetime) No 11:13 PM EDT Meena Zepdea RN documented as of this encounter Discharge [...] returns to a pre- state. Call your HOSPITAL TRAY SERVICE WORKER or come to OB triage at [facility] if: You are having heavy vaginal requiring more than 2 maxipads in 1-hour You are having new onset of headaches, blurry vision, chest pain, shortness of air, significant legswelling. Fever (temperature >100.4 F) Severe abdominal pain, nausea/vomiting Difficulty with urination Follow-up recommendations: If you had any blood pressure problems during your or labor, you should have a follow-up with your HOSPITAL TRAY SERVICE WORKER in 1-week to check your blood pressure. You should have a visit with your HOSPITAL TRAY SERVICE WORKER scheduled in 6-weeks. documented in this encounter [...] from the original note were not included. [id number] Hemorrhoids Hemorrhoids are swollen and inflamed veins [...] stool Last Reviewed Date: 2024 00:00:00 ?? [id number] The [employer]. All rights reserved. This information is not intended as a substitute for professional medical care. Always follow your healthcare professional's instructions. * [facility] - Ranulfo Blue RN - 05/15/2025 10:24 AM EDT Images from the original note were not included. 97731 Having Sex After Childbirth As any new [...] with your healthcare provider to see which uthk-lwg-miknsei pain medicines are safe to use. You [...] vasectomy. Last Reviewed Date: 2023 00:00:00 ?? 5514-7242 The [employer]. All rights reserved. This information is not intended as a substitute for professional medical care. Always follow your healthcare professional's instructions. * Milad Hussein - Ranulfo Blue RN - 05/15/2025 10:23 AM EDT Images from the original note were not included. 99976 Understanding High Blood Pressure High blood pressure [...] increases blood volume and blood pressure. The [place] [employer] says the ideal limit is [...] regularly. Last Reviewed Date: 2023 00:00:00 ?? [id number] The [employer]. All rights reserved. This information is not intended as a substitute for professional medical care. Always follow your healthcare professional's instructions. * Milad [facility] - Ranulfo Blue RN - 05/15/2025 10:23 AM EDT Images from the original note were not included. 34895 Understanding Depression You?ve just had a baby. [...] yourdaily tasks To learn more ? National [place] of Mental Health at www.nimh.nih.gov or 110-543-1173 ? National [place] on Mental Illness at www.rico.org or 221-866-7566 ? Mental Health Cynthia at www.nmha.org or 361-854-1982 ? 988 Suicide & Crisis Lifeline at www.Finalta8lifeline.org or 988 Last Reviewed Date: 2025 00:00:00 ?? 8581-9941 The [employer]. All rights reserved. This information is not intended as a substitute for professional medical care. Always follow your healthcare professional's instructions. * Milad Jovita - Mirza, Ranulfo Massey, RN - 05/15/2025 10:23 AM EDT Images from the original note were not included. 27135 Understanding Blues Having a baby is a [...] away. Last Reviewed Date: 2025 00:00:00 ?? 4065-8214 The [employer]. All rights reserved. This information is not intended as a substitute for professional medical care. Always follow your healthcare professional's instructions. * Milad Hussein - Ranulfo Blue RN - 05/15/2025 10:23 AM EDT Images from the original note were not included. 99229 Understanding Preeclampsia Preeclampsia is high blood pressure [...] deliver. Last Reviewed Date: 2019 00:00:00 ?? 6634-3708 The [employer]. All rights reserved. This information is not intended as a substitute for professional medical care. Always follow your healthcare professional's instructions. This information has been modified by your health care provider with permission from the publisher. * [facility]ad [facility] Ranulfo Blue RN - 05/15/2025 10:23 AM EDT Images from the original note were not included. When to Call the Doctor: Red Flags - Video Watch this video to learn when you should call the doctor for any red flag symptoms you may experience after giving . To view the video go to this web address: [email or web address] Or, scan this QR code with your smart phone ?? [facility] * Cheomario alberto Blue, Ranulfo Massey RN - 05/15/2025 10:22 AM EDT Images from the original note were not included. 35499 Incision Care After Vaginal After your baby?s [...] urinate Last Reviewed Date: 2025 00:00:00 ?? 4616-6494 The [employer]. All rights reserved. This information is not [...] from the original note were not included. 71738 How to Bottle-Feed Newborns need nutrition and [...] this every time. Use an alcohol-based hand glass cleaner if soap and water aren't available. ? Clean glass bottles and nipples in the program development manager. Use the hot water setting with a hot drying cycle. Or wash the bottles and nipples with hot, soapy water. Be sure to rinse both completely. If youdon't have a program development manager, sanitize them by boiling them for 5 [...] it's the best fit for your baby. Vgyuy-hq-krgs formula Hxejo-co-tbkm formula is the easiest to use, but it also costs the most. Brand names cost more thanstore-brand formulas because these companies spend more money on advertising. ? Pour the desired amount of zxhau-sh-bfit formula into the baby's clean bottle. Ask [...] you open it. Make sure the can reheater helper, spoons, scoops, and other tools you use [...] infections and tooth decay. ? Feeding your infant can be a time of bonding and [...] hole. The smaller hole slows the flow. [place] with bottle nipples. Let your baby choose [...] time. Last Reviewed Date: 2024 00:00:00 ?? 9521-8662 The [employer]. All rights reserved. This information is not intended as a substitute for professional medical care. Always follow your healthcare professional's instructions. * Cheomario alberto [facility] - Ranulfo Blue RN - 05/15/2025 10:22 AM EDT Images from the original note were not included. 23302 How to Breastfeed Babies use their lips, gums, and tongue to take milk from the breast (suckle). Your baby is born with an instinct for suckling. But it takes time for you and your baby to learn how to breastfeed. There are steps you can take to support your baby?s natural instincts. Gnjx-na-qmdy If possible, hold your baby bare against your skin (sber-og-jimm) just after giving and for afew hours [...] top and fingers underneath in a loose signal worker helper. Gently stroke your nipple on your baby?s [...] don't hesitate to reach out to a [facility] Counselor or to your baby's heating and refrigeration inspector if you have any questions about feeding [...] to. Last Reviewed Date: 2025 00:00:00 ?? 6129-0139 The [employer]. All rights reserved. This information is not intended as a substitute for professional medical care. Always follow your healthcare professional's instructions. * Milad AlmonteJUANPABLO - Ranulfo Blue RN - 05/15/2025 10:21 AM EDT Images from the original note were not included. [id number] Gestational Hypertension What is gestational hypertension? Gestational [...] weekends. Last Reviewed Date: 2025 00:00:00 ?? 5454-4400 The [employer]. All rights reserved. This information is not intended as a substitute for professional medical care. Always follow your healthcare professional's instructions. * Milad Hussein - Ranulfo Blue RN - 05/15/2025 10:21 AM EDT Images from the original note were not included. 30134 After Giving : How to Feel Healthy [...] worse Last Reviewed Date: 2024 00:00:00 ?? 6854-5246 The [employer]. All rights reserved. This information is not [...] with a nurse. [facility] (Triage) [facility] [address] [place] [address] [facility] Medical Office Building [address], [address] [place] [address] [facility] [address] [place] [address] Family Practice [address], Third Floor [address], [place] [id number] [facility] [address] [place], [place] [id number] [facility] [place] [address] [place] [address] [facility] [place] [address] [facility] [place], [place] [id number] * [facility]ad [facility] - Ranulfo Blue RN - 05/15/2025 10:20 AM EDT Images from the original note were not included. 47266 After Delivery: When to Call the Healthcare [...] from the original note were not included. 13560 After a Vaginal After having a baby, [...] and anus), an ice pack can help. Seneca care While still in the hospital or [...] home. Last Reviewed Date: 2017 00:00:00 ?? [id number] The [employer]. All rights reserved. This information is not [...] Sin PCP name and Address: Humera Meadows, DENTAL CHAIR ASSEMBLER [address] [facility] / [place] [address] Referring provider name and address: No referring [...] Your Medications These medications were sent to [facility] - [place], [place] - [address] , [facility] [address] acetaminophen 325 MG tablet DSS 100 MG [...] returns to a pre- state. Call your HOSPITAL TRAY SERVICE WORKER or come to OB triage at [facility] if: You are having heavy vaginal requiring more than 2 maxipads in 1-hour You are having new onset of headaches, blurry vision, chest pain, shortness of air, significant legswelling. Fever (temperature >100.4 F) Severe abdominal pain, nausea/vomiting Difficulty with urination Follow-up recommendations: You should have a visit with your HOSPITAL TRAY SERVICE WORKER scheduled in 6-weeks. Outpatient Follow-Up Future Appointments Date Time Provider Department Center 05/22/2025 10:30 AM [facility] HOSPITAL TRAY SERVICE WORKER CHLORINATION OPERATOR [facility] MOB Discharge Disposition/Condition Disposition: Home Condition: [...] morning - patient declining repeat labs # Seneca Status - viable female # FEN/Prophylaxis - REG / HLIV - SCDs Dispo: Continue inpatient management. Anticipate discharge PPD#2-3 Please contact first-call provider on App in the Air Secure Chat for questions or concerns. For emergencies [place] [phone]. Michelle Hsu MD Obstetrics and Gynecology, PGY1 [...] Tdap Status: Declined - Contraception: condoms # Seneca Status - viable female infant # FEN/Prophylaxis - REG / HLIV - SCDs Dispo: Continue inpatient management. Anticipate discharge PPD#2-3 Please contact first-call provider on App in the Air Secure Chat for questions or concerns. For emergencies [place] [phone]. Adina Holt, MS4 I saw and evaluated [...] uneventful and she delivered a viable female infant on 05/14. Her post- course was uncomplicated. [...] 05/13/2025 1004) Parent-Child Attachment Promotion: rooming-in promoted iqck-no-owtn contact encouraged parent/caregiver presence encouraged participation in [...] Spontaneous ROM to Delivery Time: 9h 17m Sex: Female Seneca Weight: 1 Minute 5 Minute 10 Minute Totals: 9 9 Qamar Julian [[id number]] Delivery Providers Delivering clinician: Serena Hare MD Provider Role Mary Shoemaker MD Resident PGY-1 Aylin La, taping supervisor Nurse Mac, Heydi Hall RN Charge Nurse Marie Gallegos Requisition Approver Delivery Details: Meena Julian, a 24 y.o. female delivered a viable Female infant with Apgars of 9 and 9 . Delivery was via Vaginal, Spontaneous with Spinal;Epidural anesthesia. delivered in Vertex Left Occiput Anterior position. Anterior and posterior shoulders delivered without difficulty. After delayed cord clamping, the cord was clamped twice, cut and 3 vessels were noted. Intact placenta delivered at 05/13/2025 8:25 AM. Placental disposition was discarded. Fundal massage performed and fundus found to be firm. Perineum, vagina, cervix were inspected, and the following lacerations were noted: Qamar Julian [[id number]] Lacerations Episiotomy: None Perineal laceration: 1st Perineal [...] variability. Multiple Births: No Uterine Activity Mode: Lemay Contraction Frequency: 1-3 min Contraction Duration: 70-90 [...] Ongoing, Progressing Flowsheets Taken 05/12/20252036 by Katy Li RN Patient/Family-Specific Goals (Include Timeframe): pt will [...] positive. Patient had received a notification in [facility] that her GBS status was negative weeks prior. Reviewed labs available in patient's chart. There is a GBS PCR that is positive and a GBS culture that is negative. 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 Relayed this consensus to the patient. Patientand her family strongly desire to avoid unnecessary antibiotic exposure. Reviewed that while her infant is term and complications from GBS are rare, they can be catastrophic which is why prophylaxis is recommended with IV antibiotics in labor. Also mentioned that if she were to be inadequately treated, this may lead to more interventions of the . At this time, the patient and her mother requested consultation with the Site Head team to review the interventions required in [...] 0/0/-3 FHR: 120/mod/accels/no decels - cat 1 Lemay: q3-5m Will start induction with cytotec and reassess in 4 hours Michaelle Latif MD HOSPITAL TRAY SERVICE WORKER Resident PGY-1 * H&P - Michaelle Latif MD - 05/11/2025 7:46 PM EDT [facility] OBSTETRICS OBSTETRIC EMERGENCY HISTORY & PHYSICAL Patient [...] , CREATININE @RESUFAST(CREATININE,URIC,AST,LDH,ALT) No results found for: [id number] IMAGING: Bedside ultrasound: vertex Assessment/Plan Assessment / [...] for IOL Please contact first-call provider on App in the Air Secure Chat for questions or concerns. For emergencies [place] [phone]. Michaelle Latif MD HOSPITAL TRAY SERVICE WORKER Resident PGY-1 [1] Past Medical History: Diagnosis [...] - 7.1 mg/dL 05/12/2025 4:53 AM EDT [facility] Creatinine, Plasma 0.63 0.60 - 1.10 mg/dL 05/12/2025 4:53 AM EDT [facility] ALT, Plasma 18 10 - 35 U/L 05/12/2025 4:53 AM EDT [facility] AST, Plasma 39(H) 10 - 35 U/L 05/12/2025 4:53 AM EDT [facility] Comment:Hemolyzed, result ma y be falsely increased. LDH, Plasma 372(H) 116 - 250 U/L 05/12/2025 4:53 AM EDT [facility] Comment:Hemolyzed, result ma y be falsely increased. eGFRcr 127.2 mL/min/1.7 3m*2 05/12/2025 4:53 AM EDT [facility] Comment:Reported eGFRcr in m L/min/1.73m2 is based the CKD-EPI 2020 equation that does not use a race coefficient. Blood Venous blood specimen / Unknown Venipuncture / Unknown 05/12/2025 3:58 AM EDT 05/12/2025 4:20 AM EDT us Fredi Duncan MD LAB BLOOD ORDERABLES Meryl l Result [facility] [address] [place] [address] * (ABNORMAL) CBC (05/12/2025 3:58 AM EDT) [facility] WBC Count 11.02(H) 3.70 - 10.30 10*3/uL LAB HEMATOLOGY METHOD 05/12/2025 4:37 AM EDT [facility] RBC Count 3.35(L) 3.90 - 5.20 10*6/uL LAB HEMATOLOGY METHOD 05/12/2025 4:37 AM EDT [facility] HGB 10.2(L) 11.2 - 15.7 g/dL LAB HEMATOLOGY METHOD 05/12/2025 4:37 AM EDT [facility] HCT 30.6(L) 34.0 - 45.0 % LAB HEMATOLOGY METHOD 05/12/2025 4:37 AM EDT [facility] Platelet Count 171 155 - 369 10*3/uL LAB HEMATOLOGY METHOD 05/12/2025 4:37 AM EDT [facility] MCV 91 79 - 98 fL LAB HEMATOLOGY METHOD 05/12/2025 4:37 AM EDT [facility] MCH 30.4 26.0 - 32.0 pg LAB HEMATOLOGY METHOD 05/12/2025 4:37 AM EDT [facility] MCHC 33.3 30.7 - 35.5 g/dL LAB HEMATOLOGY METHOD 05/12/2025 4:37 AM EDT [facility] RDW 14.6(H) 11.5 - 14.5 % LAB HEMATOLOGY METHOD 05/12/2025 4:37 AM EDT [facility] MPV 13.3(H) 8.8 - 12.5 fL LAB HEMATOLOGY METHOD 05/12/2025 4:37 AM EDT [facility] nRBC 0.0 <=0.0 per 100 WBCs LAB HEMATOLOGY METHOD 05/12/2025 4:37 AM EDT [facility] Blood Venous blood specimen / Unknown Venipuncture / Unknown 05/12/2025 3:58 AM EDT 05/12/2025 4:25 AM EDT Fredi Duncan MD LAB BLOOD ORDERABLES Meryl l Result [facility] [address] [place] [address] * Treponema Pallidum (Syphilis) Antibodies with Reflex to RPR and RPR Titer (Those with NO known Syphilis) (05/12/2025 3:58 AM EDT) Syphilis Antibody (IgG+IgM) Nonreactive Nonreactive 05/12/2025 5:12 AM EDT [facility] Comment:Nonreactive. No sero logic evidence of syphilis. No follow-up necessary unless clinically indicated (e.g., early syphilis). Blood Venous blood specimen / Unknown Venipuncture / Unknown 05/12/2025 3:58 AM EDT 05/12/2025 4:21 AM EDT Frdei Duncan MD LAB BLOOD ORDERABLES Meryl l Result [facility] [address] [place] [address] * Treponema Pallidum (Syphilis) Antibodies with Reflex to RPR and RPR Titer (Those with NO known Syphilis) (05/11/2025 9:05 PM EDT) Pathologist [facility] Syphilis Antibody (IgG+IgM) Nonreactive Nonreactive 05/11/2025 10:09 PM EDT [facility] Comment:Nonreactive. No sero logic evidence of syphilis. No follow-up necessary unless clinically indicated (e.g., early syphilis). Blood Venous blood specimen / Unknown Venipuncture / Unknown 05/11/2025 9:05 PM EDT 05/11/2025 9:13 PM EDT Fredi Duncan MD LAB BLOOD ORDERABLES Meryl l Result Performing Organization Address City/[facility]/ZIP Co de Phone Number [facility] [address] [place] [address] * Type and screen (05/11/2025 9:05 PM [...] ORDER SONYA Final Result Performing Organization Address City/[facility]/ZIP Co de Phone Number BLOOD BANK [address] [place] [address], [place] * Protein, Random, Urine with Creatinine (05/11/2025 9:05 PM EDT) Protein, Urine 6 mg/dL 05/11/2025 9:44 PM EDT [facility] Creatinine, Urine 16 mg/dL 05/11/2025 9:44 PM EDT [facility] Protein/Creatin ine Ratio 0.4 mg/mg Creat 05/11/2025 9:44 PM EDT [facility] Urine Urine specimen obtained by clean catch procedure / Unknown Non-blood Collection / Unknown 05/11/2025 9:05 PM EDT 05/11/2025 9:13 PM EDT us Fredi Duncan MD LAB URINE ORDERABLES Meryl massey Result [facility] [address] [place] [address] * (ABNORMAL) OB Panel Pre-Eclampsia, Plasma (05/11/2025 9:05 PM EDT) Uric Acid, Plasma 4.7 3.1 - 7.1 mg/dL 05/11/2025 9:44 PM EDT [facility] Creatinine, Plasma 0.55(L) 0.60 - 1.10 mg/dL 05/11/2025 9:44 PM EDT [facility] ALT, Plasma 19 10 - 35 U/L 05/11/2025 9:44 PM EDT [facility] AST, Plasma 30 10 - 35 U/L 05/11/2025 9:44 PM EDT [facility] Comment:Hemolyzed, result ma y be falsely increased. LDH, Plasma 261(H) 116 - 250 U/L 05/11/2025 9:44 PM EDT [facility] Comment:Hemolyzed, result ma y be falsely increased. eGFRcr 131.5 mL/min/1.7 3m*2 05/11/2025 9:44 PM EDT [facility] Comment:Reported eGFRcr in m L/min/1.73m2 is based the CKD-EPI 2020 equation that does not use a race coefficient. Blood Venous blood specimen / Unknown Venipuncture / Unknown 05/11/2025 9:05 PM EDT 05/11/2025 9:13 PM EDT us Fredi Duncan MD LAB BLOOD ORDERABLES Meryl shilpa Result [facility] [address] [place] [address] * (ABNORMAL) CBC W/O Differential (05/11/2025 9:05 PM EDT) WBC Count 10.34(H) 3.70 - 10.30 10*3/uL LAB HEMATOLOGY METHOD 05/11/2025 9:22 PM EDT [facility] RBC Count 3.66(L) 3.90 - 5.20 10*6/uL LAB HEMATOLOGY METHOD 05/11/2025 9:22 PM EDT [facility] HGB 10.7(L) 11.2 - 15.7 g/dL LAB HEMATOLOGY METHOD 05/11/2025 9:22 PM EDT [facility] HCT 33.3(L) 34.0 - 45.0 % LAB HEMATOLOGY METHOD 05/11/2025 9:22 PM EDT [facility] Platelet Count 190 155 - 369 10*3/uL LAB HEMATOLOGY METHOD 05/11/2025 9:22 PM EDT [facility] MCV 91 79 - 98 fL LAB HEMATOLOGY METHOD 05/11/2025 9:22 PM EDT [facility] MCH 29.2 26.0 - 32.0 pg LAB HEMATOLOGY METHOD 05/11/2025 9:22 PM EDT [facility] MCHC 32.1 30.7 - 35.5 g/dL LAB HEMATOLOGY METHOD 05/11/2025 9:22 PM EDT [facility] RDW 14.2 11.5 - 14.5 % LAB HEMATOLOGY METHOD 05/11/2025 9:22 PM EDT [facility] MPV 12.3 8.8 - 12.5 fL LAB HEMATOLOGY METHOD 05/11/2025 9:22 PM EDT [facility] nRBC 0.0 <=0.0 per 100 WBCs LAB HEMATOLOGY METHOD 05/11/2025 9:22 PM EDT [facility] Blood Venous blood specimen / Unknown Venipuncture / Unknown 05/11/2025 9:05 PM EDT 05/11/2025 9:13 PM EDT us Fredi Duncan MD LAB BLOOD ORDERABLES Meryl shilpa Result [facility] [address] [place] [address] documented in this encounter Visit Diagnoses Diagnosis [...] at 0901, Until 05/15/25 at 1542, Routine, mild pain, irritation Given 05/13/2025 9:17 AM EDT 1 spray butorphanol (Stadol) injection 1 mg 1 mg, Intravenous, Once, 1 dose, On 05/12/25 at 2015, Routine Given 05/12/2025 9:17 PM [...] Reason: Patient/family refused)165 (Given - Provider: Edna Schmidt, KRISTIN)220 (Given - Provider: Leonela Knight, KRISTIN) 0527 (Given - Provider: Leonela Knight RN)1010 (Given - Provider: Dean Valdez, KRISTIN)165 (Given - Provider: Dena Valdez, KRISTIN)2144 (Given - Provider: Leonela Knight RN) 0413 (Given - Provider: Leonela L Eugene, RN)1030 (Given - Provider: Dena Valdez RN) ceFAZolin (Ancef) injection 2 g (COMPLETED)(Linked Group 1) 2 g, Intravenous, Once, 1 dose, On Leisa 05/11/25 at 2245, Routine, Pre-Delivery 0359 (Given - Provider: Katy Li, KRISTIN) docusate sodium (Colace) capsule 200 mg 200 mg, Oral, Nightly, First dose on 05/13/25 at 2100, Until Discontinued, Routine, 2204 (Given - Provider: Leonela Knight RN) 2144 (Given - Provider: Leonela Knight RN) ibuprofen tablet 600 mg 600 mg, Oral, Every 6 hours, First dose on 05/13/25 at 1300, Until Discontinued, Routine, 1013 (Given - Provider: Aylin La RN)1652 (Given - Provider: Edna Schmidt RN)2204 (Given - Provider: Leonela Knight RN) 0528 (Given - Provider: Leonela Knight RN)1010 (Given - Provider: Dena Valdez RN)1656 (Given - Provider: Dena Valdez RN)2144 (Given - Provider: Leonela Knight RN) 0414 (Given - Provider: Leonela Knight RN)1030 (Given - Provider: Dena Valdez RN) oxytocin bolus from bag (COMPLETED)(Linked Group 2) 28,000 dax-units, Intravenous, Once, 1 dose, On 05/13/25 at 1000, Routine 0817 (Bolus from Bag - Provider: Aylin La RN) senna (Senokot) tablet 8.6 mg 8.6 mg, Oral, Nightly, First dose on 05/14/25 at 2100, Until Discontinued, Routine 214 (Given - Provider: Leonela Knight RN) Continuous [...] Routine 0847 (New Bag - Provider: Aylin La RN) PRN Medication Order 05/13/2025 05/14/2025 05/15/2025 benzocaine-menthol (Dermoplast) topical spray 1 spray Topical, 4 times daily PRN, Starting on 05/13/25 at 0901, Until 05/15/25 at 1542, Routine, mild pain, irritation 0917 (Given - Provider: Aylin La RN) calcium carbonate (Tums) chewable tablet 1,000 mg [...] Until 05/13/25 at 0901, Routine, severe pain, moderate pain 0014 (New Bag - Provider: Eddie Cardona [...] Routine, anxiety 0206 (Given - Provider: Archana Rodarte, RN) lansinoh lanolin cream 1 Application Topical, Every 1 hour PRN, Starting on 05/13/25 at 0901, Until 05/15/25 at 1542, Routine, dry skin magnesium hydroxide (Milk of Magnesia) 400 MG/5ML suspension 30 mL 30 mL, Oral, Daily PRN, Starting on 05/14/25 at 1202, Until 05/15/25 at 1542, Routine, constipation 1656 (Given - Provider: Dena Valdez RN) ondansetron (Zofran) injection 4 mg (CANCELED)(Linked Group 4) 4 mg, Intravenous, Every 6 hours PRN, Starting on Leisa 05/11/25 at 2156, Until 05/13/25 at 0901, Routine, Pre-Delivery, vomiting, nausea 0656 (Given - Provider: Katy Li RN) ondansetron ODT (Zofran-ODT) disintegrating tablet 4 mg [...] 8 hours, 21 doses, First dose on Thu05/12/25 at 0645, Last dose on Thu05/19/25 at [...] Until 05/13/25 at 0901, Routine, severe pain, moderate pain Group 4: ondansetron ODT (Zofran-ODT) disintegrating tablet [...] documented as of this encounter Care Teams It Security Engineer Relationship Specialty Start Date End Date Humera Meadows APRN [address] [place] [address] PCP - General 04/05/25 documented as of this encounter
--- OUTSIDE RECORDS SUMMARY | 2025-05-13 00:04 | XMS_ITS | Encounter Summary ---
Author Organization Healthcare Address [address] [id number] Care Team Providers Care Breed To Wean Production Technician Name Role Phone Humera Meadows APRN Primary Care Provider [phone]- [phone] Reason for Visit * Auth/Cert (Routine) Specialty Diagnoses / Procedures Referred By Contac t Referred To Contact Diagnoses Pre-eclampsia in third trimester Fredi Duncan MD [address] [address] Phone: tel: fax: [facility] [address] [place] [phone] Phone: tel: Referral ID Status Reason Start Date Expiration Date Visits Re quested Visits Authorized [id number] 1 1 Encounter Details Date Type Department Care Team (Late st Contact Info) Description 05/13/2025 12:04 AM EDT Anesthesia Event [facility] [address] [place] [address] Victorino Rodriguez MD [address] [place] [address] Eddie Cardona, [address] [place] [address] Anesthesia Record Procedure Summary Procedure Name Responsible [...] Recorded Patient Health Questionnaire-9 Score 0 04/05/2025 Nelson Depression Scale Answer Date Recorded Nelson Depression Scale Total 4 05/13/2025 The thought [...] drink first t sparkle in the morning (EYE-AUTOMOTIVE BUYER) to steady your nerves or to get [...] return of CSF. Catheter threaded easily and [id number] into the space. Aspiration negative. Tested with [...] or known coagulopathy. 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
--- OUTSIDE RECORDS SUMMARY | 2025-05-13 01:03 | XMS_ITS | Encounter Summary ---
Author Organization Healthcare Address [address] [id number] Care Team Providers Care Integrated Specialist Name Role Phone Humera Meadows APRN Primary Care Provider [phone]- [phone] Reason for Visit * Auth/Cert (Routine) Specialty Diagnoses / Procedures Referred By Contshakira t Referred To Contact Diagnoses Pre-eclampsia in third trimester Fredi Duncan MD [address] [address] Phone: tel: fax: [facility] [address] [place] [phone] Phone: tel: Referral ID Status Reason Start Date Expiration Date Visits Re quested Visits Authorized [id number] 1 1 Encounter Details Date Type Department Care Team (Late st Contact Info) Description 05/13/2025 1:03 AM EDT Anesthesia Event [facility] [address] [phone] Eddie Cardona, DO [address] [place] [address] Anesthesia Record Procedure Summary Procedure Name Responsible [...] Recorded Patient Health Questionnaire-9 Score 0 04/05/2025 [place] Depression Scale Answer Date Recorded [place] Depression Scale Total 4 05/13/2025 The thought [...] 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
--- OUTSIDE RECORDS SUMMARY | 2025-05-22 10:30 | XMS_ITS | Encounter Summary ---
Author Organization Healthcare Address [address] [place] [address] Care Team Providers Care Hazardous Materials Waste Technician Name Role Phone Humera Meadows APRN Primary Care Provider [phone]- [phone] Reason for Visit * Reason Comments Nurse Visit Encounter Details Date Type Department Care Team ([facility] Contact Info) Description 05/22/2025 10:30 AM EDT Clinical Support Medical Office Building Obstetrics and Gynecology [address] [facility], [address] [place] [address] Jaqueline Barrett APRN, [facility] [address] [facility] [address] [place] [address] History of pre-eclampsia (Primary Dx) Social History Tobacco Use Types Packs/Day Years Used Date Smoking Tobacco: Never Passive Smoke Exposure: Never Smokeless Tobacco: Never Alcohol Use Standard Drinks/Week Comments Not Currently 0 (1 standard drink = 0.6 oz pur e alcohol) PHQ-2 Answer Date Recorded Patient Health Questionnaire-2 Score 0 04/05/2025 PHQ-9 Answer Date Recorded Patient Health Questionnaire-9 Score 0 04/05/2025 [place] Depression Scale Answer Date Recorded [place] Depression Scale Total 0 05/22/2025 The thought [...] drink first t sparkle in the morning (EYE-FIBREGLASS LAMINATOR) to steady your nerves or to get [...] to do your daily tasks Resources National [place] of Mental Wkofon868-723-5918jjt.[facility].nih.gov National [place] on Mental Qvcqezb671-948-0326egp.[place].org Mental Health Uhtaejo526-127-9951hpu.[facility].org National Suicide Jflzvpx757-820-5448 (800-SUICIDE) [employer] last reviewed this educational content on 01/31/2017 ?? 5488-1704 [employer]. [address] [place] [address]. All rights reserved. This information is not [...] Share your thoughts with your partner. Or pick up operator the phone and call a friend, your [...] the baby. The Depression After Delivery hotline (265-634-8473) may also be helpful. [employer] last reviewed this educational content on 09/03/2017 ?? [phone] [employer]. [address] [place] [address]. All rights reserved. This information is not [...] after 1 week Severe pain Worsening depression [employer]har[employer]eeper last reviewed this educational content on 09/03/2017 ?? [phone] [employer]. [address] [place] [address], [place] [address]. All rights reserved. This information is not [...] get you back in shape. But don???t irtchie it. Take it slowly. Read on to [...] provider may also refer you to a career resource specialist. Sticking to healthy habits will help you reach a good weight. When to call your healthcare provider Call your healthcare provider right away if any of these occur: You have new symptoms Symptoms get worse [employer] last reviewed this educational content on 06/03/2019 ?? [phone] [employer]. [address] [place] [address]. All rights reserved. This information is not [...] reviewed this educational content on 09/03/2017 ?? [phone] [employer]. [address] [place] [address]. All rights reserved. This information is not [...] nipples, consult your healthcare provider or a senior safety management consultant. He or she will make sure [...] or your milk does not flow freely [employer] last reviewed this educational content on 08/03/2017 ?? [phone] [employer]. [address] [place] [address]. All rights reserved. This information is not [...] - 99 mg/dL 05/22/2025 3:14 PM EDT [facility] BUN, Plasma 18 7 - 21 mg/dL 05/22/2025 3:14 PM EDT [facility] Creatinine, Plasma 0.65 0.60 - 1.10 mg/dL 05/22/2025 3:14 PM EDT [facility] BUN/Creatinine Ratio 28 05/22/2025 3:14 PM EDT [facility] Sodium, Plasma 140 136 - 145 mmol/L 05/22/2025 3:14 PM EDT [facility] Potassium, Plasma 4.6 3.6 - 4.9 mmol/L 05/22/2025 3:14 PM EDT [facility] Chloride, Plasma 104 97 - 107 mmol/L 05/22/2025 3:14 PM EDT [facility] CO2, Plasma 23 22 - 29 mmol/L 05/22/2025 3:14 PM EDT [facility] Anion Gap 13 6 - 16 mmol/L 05/22/2025 3:14 PM EDT [facility] Total Calcium, Plasma 9.7 8.9 - 10.2 mg/dL 05/22/2025 3:14 PM EDT [facility] Total Protein 7.9 6.3 - 7.9 g/dL 05/22/2025 3:14 PM EDT [facility] Albumin, Plasma 3.9 3.5 - 5.2 g/dL 05/22/2025 3:14 PM EDT [facility] AST, Plasma 26 10 - 35 U/L 05/22/2025 3:14 PM EDT [facility] ALT, Plasma 41(H) 10 - 35 U/L 05/22/2025 3:14 PM EDT [facility] Alkaline Phosphatase, Plasma 173(H) 35 - 104 U/L 05/22/2025 3:14 PM EDT [facility] Total Bilirubin, Plasma 0.3 0.2 - 1.1 mg/dL 05/22/2025 3:14 PM EDT [facility] eGFRcr 126.3 mL/min/1.7 3m*2 05/22/2025 3:14 PM EDT [facility] Comment:Reported eGFRcr in m L/min/1.73m2 is based the CKD-EPI 2020 equation that does not use a race coefficient. Blood Venous blood specimen / Unknown Venipuncture / Unknown 05/22/2025 11:34 AM EDT 05/22/2025 11:34 AM EDT us Jaqueline Barrett SENIOR LINUX UNIX ADMINISTRATOR, CNM LAB BLOOD ORDERABLES Final Result [facility] [address] [place] [id number] * (ABNORMAL) CBC W/O Differential (05/22/2025 11:34 AM EDT) WBC Count 6.39 3.70 - 10.30 10*3/uL LAB HEMATOLOGY METHOD 05/22/2025 2:59 PM EDT [facility] RBC Count 4.22 3.90 - 5.20 10*6/uL LAB HEMATOLOGY METHOD 05/22/2025 2:59 PM EDT [facility] HGB 12.3 11.2 - 15.7 g/dL LAB HEMATOLOGY METHOD 05/22/2025 2:59 PM EDT [facility] HCT 39.6 34.0 - 45.0 % LAB HEMATOLOGY METHOD 05/22/2025 2:59 PM EDT [facility] Platelet Count 350 155 - 369 10*3/uL LAB HEMATOLOGY METHOD 05/22/2025 2:59 PM EDT [facility] MCV 94 79 - 98 fL LAB HEMATOLOGY METHOD 05/22/2025 2:59 PM EDT [facility] MCH 29.1 26.0 - 32.0 pg LAB HEMATOLOGY METHOD 05/22/2025 2:59 PM EDT [facility] MCHC 31.1 30.7 - 35.5 g/dL LAB HEMATOLOGY METHOD 05/22/2025 2:59 PM EDT [facility] RDW 14.6(H) 11.5 - 14.5 % LAB HEMATOLOGY METHOD 05/22/2025 2:59 PM EDT [facility] MPV 9.7 8.8 - 12.5 fL LAB HEMATOLOGY METHOD 05/22/2025 2:59 PM EDT [facility] nRBC 0.0 <=0.0 per 100 WBCs LAB HEMATOLOGY METHOD 05/22/2025 2:59 PM EDT [facility] Blood Venous blood specimen / Unknown Venipuncture / Unknown 05/22/2025 11:34 AM EDT 05/22/2025 11:34 AM EDT us Jaqueline Barrett APRN, CNM LAB BLOOD ORDERABLES Final Result [facility] [address] [place] [address] documented in this encounter Visit Diagnoses Diagnosis History of pre-eclampsia- Primary documented in this encounter Additional Health Concerns Assessment Noted Time PHQ-9 Depression Total Score: 0 04/05/20 9:46 AM EDT A Body Mass Index follow-up plan has been documented for the patient 05/22/2025 11:57 AM EDT documented as of this encounter Care Teams Hazardous Materials Waste Technician Relationship Specialty Start Date End Date Humera Meadows APRN [address] [place] [address] PCP - General 04/05/25 documented as of this encounter
--- OUTSIDE RECORDS SUMMARY | 2025-05-30 11:59 | XMS_ITS | Clinical Summary ---
Author Organization Healthcare Address [address] [place] [address] Care Team Providers Care Greenhouse Instructor Name Role Phone Humera Meadows APRN Primary Care Provider [phone]- [phone] Allergies Active Allergy Reactions Criticality Noted Date Comments Amoxicillin-Pot Clavulanate Rash Low 04/05/20 25 Bee Venom Swelling High 04/05/2025 Medications Multiple Vitamins-Minerals (HM MULTIVITAMIN ADULT GUMMY PO) Take by mouth. Active acetaminophen (Tylenol) 325 MG tablet Take 2 tablets by mouth every 6 hours. 100 tablet 5 Active docusate sodium 100 MG capsule Take 200 mg by mouth nightly. 60 capsule 5 Active ibuprofen 600 MG tabletIndications:M ild to Moderate Pain Take 1 tablet by mouth every 6 hours. 100 tablet 5 Active ondansetron ODT (Zofran-ODT) 4 MG disintegrating tablet Dissolve 1 tablet on the tongue every 8 hours as needed for nausea or vomiting () . 5 tablet 5 Active Active Problems Problem Noted Date Diagnosed Date Pre-eclampsia in third trimester 05/11/2025 care, first , antepartum 04/26 Overview (04/26/2025): Late NAE from [facility] Delivery planning: HUNTER, ? Epidural, formula, condoms for contraception Declined Tdap and RSV US: 10/04/2024 - TVUS in provider documentation (no report). Single IUP @ 7.2 weeks, normal yolk sac. FHR 150bpm. Measurements consistent with LMP. 01/02/2025 - Anatomy Scan; 20.0 weeks, [place], posterior placenta-Grade 1, KATHERINE WNL, MVP 3.97cm, EFW 327g (47%), 3VC with satisfactory insertion, FHR 153bpm, anatomy appears normal. 01/16/25 - Follow-up for cardiac 4 chamber view. CL 2.9cm, FHR 152bpm, MVP 2.60cm, cephalic, cardiac views appear normal. 10/04/2024 Labs: PAP Negative STI Testing: Chlamydia and Gonorrheae Negative Assessment & Plan (05/03/2025 9:48 PM EDT): Encounters Date Type Department Care Team Description 05/22/2025 10:30 AM EDT Clinical Support Medical Office Building Obstetrics and Gynecology [address], [address] [place] [address] Jaqueline Barrett APRN, LUIS History of pre-eclampsia (Primary Dx) 05/22/2025 Results Follow-Up Medical Office Building Obstetrics and Gynecology [address], [address] [place] [address] Jaqueline Barrett APRN, CNM 05/22/2025 Travel 05/13/2025 1:03 AM EDT Anesthesia Event [facility] [address] [place] [address] Eddie Cardona, DO 05/13/2025 12:04 AM EDT Anesthesia Event [facility] [address] [place] [address] Victorino Rodriguez MD McClanahan, Easton D, DO 05/11/2025 6:39 PM EDT - 05/15/2025 1:42 PM EDT Hospital Encounter [facility] [address] [place] [address] Fredi Duncan MD Marcum, Miriam B, MD Discharge Disposition: Home or Self Care 05/11/2025 Travel 05/10/2025 3:30 PM EDT Routine Medical Office Building Obstetrics and Gynecology [address], [address] [place] [phone] Mayuri Husain APRN 38 weeks gestation of (Primary Dx) 05/10/2025 Travel 05/03/2025 3:15 PM EDT Routine Medical Office Building Obstetrics and Gynecology [address], [address] [place] [phone] Vickie Luevano MD care, first , antepartum (Primary Dx); 37 weeks gestation of 05/03/2025 Travel 04/27/2025 8:40 AM EDT Routine Medical Office Building Obstetrics and Gynecology [address], [address] [place] [address] Belia Mcgregor APRN, HIRAM care, first , antepartum (Primary Dx) 04/27/2025 Travel 04/20/2025 8:30 AM EDT Routine Medical Office Building Obstetrics and Gynecology [address], [address] [place] [address] Connie Orourke APRN, DNP Encounter for supervision of normal first in third trimester (Primary Dx) 04/20/2025 Travel 04/13/2025 11:00 AM EDT - 04/13/2025 11:59 PM EDT Hospital Encounter Medical Office Building Obstetrics and Gynecology [address], [address] [place] [address] Encounter for supervision of normal first in third trimester Discharge Disposition: Home or Self Care 04/13/2025 Travel 04/05/2025 9:30 AM EDT Initial Medical Office Building Obstetrics and Gynecology [address], [address] [place] [address] Connie Orourke APRN, DNP GA: [id number] 04/05/2025 Travel from Last 3 Months Social History Tobacco Use Types Packs/Day Years Used Date Smoking Tobacco: Never Passive Smoke Exposure: Never Smokeless Tobacco: Never Tobacco Cessation:Counseling Given: No Alcohol Use Standard Drinks/Week Comments Not Currently 0 (1 standard drink = 0.6 oz pur e alcohol) PHQ-2 Answer Date Recorded Patient Health Questionnaire-2 Score 0 04/05/2025 PHQ-9 Answer Date Recorded Patient Health Questionnaire-9 Score 0 04/05/2025 [place] Depression Scale Answer Date Recorded [place] Depression Scale Total 0 05/22/2025 The thought [...] drink first t sparkle in the morning (EYE-PRINT SHOP ASSISTANT) to steady your nerves or to get rid of a hangover? 0 05/11/2025 CAGE Questionnaire Score 0 025 Comments No Sex and Gender Information Value Date Recorded Sex Assigned at Not on file Legal Sex Female 10:37 AM EDT Gender Identity Not on file Sexual Orientation Straight 03/29/2025 11 :10 AM EDT Last Filed Vital Signs Vital Sign Reading [...] Mass Index 22.01 05/22/2025 10:42 AM EDT Plan of Treatment Health Maintenance Due Date Last Done Comments [facility]-Infant/Child/Adol SDOH Screenings 2000 [facility]-Varicella Vaccines (1 of 2 - 13+ 2-dose series) 2013 HPV Vaccines (1 - 3-dose series) 2015 [facility]- SDOH Screenings 2018 [facility]-Adult SDOH Screenings 2018 [facility]-DTaP,Tdap,and Td Vaccines (1 - Tdap) 2019 [facility]-Hepatitis B Vaccines (1 of 3 - 19+ 3-dose series) 2019 [facility]-Pap Smear 2021 [facility]FF-FMRHV-14 Vaccine (1 - season) 2025 [facility]-Influenza Vaccine (#1) 2025 [facility]-Depression Screening 05/22/2026 025, 04/05/2025, 04/05/2025 [facility]-Zoster Vaccines (1 of 2) 2050 [facility]-HIV Screening Completed 05/03/2025 [facility]-Hepatitis C Screening Completed 05/03/2025 [facility]-HIB Vaccines Aged Out No longer e ligible based on patient's age to complete this topic [facility]-Hepatitis A Vaccines Aged Out No longer eligible based on patient's age to complete this topic [facility]-IPV Vaccines Aged Out No longer e ligible based on patient's age to complete this topic [facility]-Pneumococcal Vaccine: Pediatrics (0 to 5 Years) and At-Risk Patients (6 to 49 Years) Aged Out No longer eligible b ased on patient's age to complete this topic [facility]-Rotavirus Vaccines Aged Out No lo nger eligible based on patient's age to complete this topic Procedures Procedure Name Priority Date/Time Associated Diagnosis Comments CBC W/O DIFFERENTIAL Routine 05/22/2025 11:34 AM EDT History of pre-eclampsia COMPREHENSIVE METABOLIC PANEL, PLASMA Routine 05/22/2025 11:34 AM EDT History of pre-eclampsia ANESTHESIA CSE BLOCK Routine 05/13/2025 2:59 AM EDT ANESTHESIA DPE BLOCK 05/13/2025 12:27 AM EDT OB PANEL PRE ECLAMPSIA, PLASMA Routine 05/12/2025 3:58 AM EDT CBC W/O DIFFERENTIAL Routine 05/12/2025 3:58 AM EDT TREPONEMA PALLIDUM (SYPHILIS) ANTIBODIES WITH REFLEX TO RPR AND RPR TITER (THOSE WITH NO KNOWN SYPHILIS) Routine 05/12/2025 3:58 AM EDT TREPONEMA PALLIDUM (SYPHILIS) ANTIBODIES WITH REFLEX TO RPR AND RPR TITER (THOSE WITH NO KNOWN SYPHILIS) STAT 05/11/2025 9:05 PM EDT TYPE AND SCREEN Routine 05/11/2025 9:05 PM EDT PROTEIN, URINE, RANDOM WITH CREATININE Routine 05/11/2025 9:05 PM EDT OB PANEL PRE ECLAMPSIA, PLASMA STAT 05/11/2025 9:05 PM EDT CBC W/O DIFFERENTIAL STAT 05/11/2025 9:05 PM EDT HIV 1/2 ANTIBODY/ANTIGEN SCREEN WITH REFLEX TO HIV I/II DIFFERENTIATION Routine 05/03/2025 4:09 PM EDT Encounter for supervision of normal first in third trimester RUBELLA ANTIBODY IGG Routine 05/03/2025 4:09 PM EDT Encounter for supervision of normal first in third trimester CBC W/O DIFFERENTIAL Routine 05/03/2025 4:09 PM EDT Encounter for supervision of normal first in third trimester TYPE AND SCREEN Routine 05/03/2025 4:09 PM EDT Encounter for supervision of normal first in third trimester HIV 1/2 ANTIBODY/ANTIGEN SCREEN W/REFLEX TO HIV 1/2 ANTIBODY DIFFERENTIATION Routine 05/03/2025 4:09 PM EDT Encounter for supervision of normal first in third trimester HEPATITIS B SURFACE ANTIGEN Routine 05/03/2025 4:09 PM EDT Encounter for supervision of normal first in third trimester HEPATITIS C ANTIBODY W/REFLEX TO HCV QUANT PCR Routine 05/03/2025 4:09 PM EDT Encounter for supervision of normal first in third trimester TREPONEMA PALLIDUM (SYPHILIS) ANTIBODIES WITH REFLEX TO RPR AND RPR TITER (THOSE WITH NO KNOWN SYPHILIS) Routine 05/03/2025 4:09 PM EDT Encounter for supervision of normal first in third trimester GROUP B STREPTOCOCCUS SCREEN BY CULTURE Routine 04/27/2025 9:09 AM EDT care, first , antepartum GROUP B STREPTOCOCCUS BY PCR Routine 04/27/2025 9:09 AM EDT care, first , antepartum OB US 14+ WEEKS ANATOMY SCAN Routine 04/13/2025 11:42 AM EDT Encounter for supervision of normal first in third trimester from Last 3 Months Results * (ABNORMAL) CBC W/O Differential (05/22/2025 11:34 AM EDT) Only the most recent of4 resultswithin the time period is included. WBC Count 6.39 3.70 - 10.30 10*3/uL LAB HEMATOLOGY METHOD 05/22/2025 2:59 PM EDT [facility] RBC Count 4.22 3.90 - 5.20 10*6/uL LAB HEMATOLOGY METHOD 05/22/2025 2:59 PM EDT [facility] HGB 12.3 11.2 - 15.7 g/dL LAB HEMATOLOGY METHOD 05/22/2025 2:59 PM EDT [facility] HCT 39.6 34.0 - 45.0 % LAB HEMATOLOGY METHOD 05/22/2025 2:59 PM EDT [facility] Platelet Count 350 155 - 369 10*3/uL LAB HEMATOLOGY METHOD 05/22/2025 2:59 PM EDT [facility] MCV 94 79 - 98 fL LAB HEMATOLOGY METHOD 05/22/2025 2:59 PM EDT [facility] MCH 29.1 26.0 - 32.0 pg LAB HEMATOLOGY METHOD 05/22/2025 2:59 PM EDT [facility] MCHC 31.1 30.7 - 35.5 g/dL LAB HEMATOLOGY METHOD 05/22/2025 2:59 PM EDT [facility] RDW 14.6(H) 11.5 - 14.5 % LAB HEMATOLOGY METHOD 05/22/2025 2:59 PM EDT [facility] MPV 9.7 8.8 - 12.5 fL LAB HEMATOLOGY METHOD 05/22/2025 2:59 PM EDT [facility] nRBC 0.0 <=0.0 per 100 WBCs LAB HEMATOLOGY METHOD 05/22/2025 2:59 PM EDT [facility] Blood Venous blood specimen / Unknown Venipuncture / Unknown 05/22/2025 11:34 AM EDT 05/22/2025 11:34 AM EDT Jaqueline Barrett APRN, CNDat LAB BLOOD ORDERABLES Final Result [facility] [address] [place] [address] * (ABNORMAL) Comprehensive Metabolic Panel, Plasma (05/22/2025 11:34 AM EDT) Glucose, Plasma 76 74 - 99 mg/dL 05/22/2025 3:14 PM EDT [facility] BUN, Plasma 18 7 - 21 mg/dL 05/22/2025 3:14 PM EDT [facility] Creatinine, Plasma 0.65 0.60 - 1.10 mg/dL 05/22/2025 3:14 PM EDT [facility] BUN/Creatinine Ratio 28 05/22/2025 3:14 PM EDT [facility] Sodium, Plasma 140 136 - 145 mmol/L 05/22/2025 3:14 PM EDT [facility] Potassium, Plasma 4.6 3.6 - 4.9 mmol/L 05/22/2025 3:14 PM EDT [facility] Chloride, Plasma 104 97 - 107 mmol/L 05/22/2025 3:14 PM EDT [facility] CO2, Plasma 23 22 - 29 mmol/L 05/22/2025 3:14 PM EDT [facility] Anion Gap 13 6 - 16 mmol/L 05/22/2025 3:14 PM EDT [facility] Total Calcium, Plasma 9.7 8.9 - 10.2 mg/dL 05/22/2025 3:14 PM EDT [facility] Total Protein 7.9 6.3 - 7.9 g/dL 05/22/2025 3:14 PM EDT [facility] Albumin, Plasma 3.9 3.5 - 5.2 g/dL 05/22/2025 3:14 PM EDT [facility] AST, Plasma 26 10 - 35 U/L 05/22/2025 3:14 PM EDT [facility] ALT, Plasma 41(H) 10 - 35 U/L 05/22/2025 3:14 PM EDT [facility] Alkaline Phosphatase, Plasma 173(H) 35 - 104 U/L 05/22/2025 3:14 PM EDT [facility] Total Bilirubin, Plasma 0.3 0.2 - 1.1 mg/dL 05/22/2025 3:14 PM EDT [facility] eGFRcr 126.3 mL/min/1.7 3m*2 05/22/2025 3:14 PM EDT [facility] Comment:Reported eGFRcr in m L/min/1.73m2 is based the CKD-EPI 2020 equation that does not use a race coefficient. Blood Venous blood specimen / Unknown Venipuncture / Unknown 05/22/2025 11:34 AM EDT 05/22/2025 11:34 AM EDT Jaqueline Barrett APRN, CNM LAB BLOOD ORDERABLES Final Result [facility] [address] [place] [id number] * CSE Block (05/13/2025 2:59 AM EDT) [...] in place with LOCKIT, tegaderm and tape. Victorino Rodriguez MD ANESTHESIA ORDERABLES Final Result [...] Rodriguez MD ANESTHESIA ORDERABLES Final Result * Treponema Pallidum (Syphilis) Antibodies with Reflex to RPR and RPR Titer (Those with NO known Syphilis) (05/12/2025 3:58 AM EDT) Only the most recent of3 resultswithin the time period is included. [facility] Syphilis Antibody (IgG+IgM) Nonreactive Nonreactive 05/12/2025 5:12 AM EDT [facility] Comment:Nonreactive. No sero logic evidence of syphilis. No follow-up necessary unless clinically indicated (e.g., early syphilis). Blood Venous blood specimen / Unknown Venipuncture / Unknown 05/12/2025 3:58 AM EDT 05/12/2025 4:21 AM EDT us Fredi Duncan MD LAB BLOOD ORDERABLES Meryl massey Result [facility] [address] [place] [address] * (ABNORMAL) OB Panel Pre-Eclampsia (05/12/2025 3:58 AM EDT) Only the most recent of2 resultswithin the time period is included. Pathologist [facility] Uric Acid, Plasma 5.1 3.1 - 7.1 mg/dL 05/12/2025 4:53 AM EDT [facility] Creatinine, Plasma 0.63 0.60 - 1.10 mg/dL 05/12/2025 4:53 AM EDT [facility] ALT, Plasma 18 10 - 35 U/L 05/12/2025 4:53 AM EDT [facility] AST, Plasma 39(H) 10 - 35 U/L 05/12/2025 4:53 AM EDT [facility] Comment:Hemolyzed, result ma y be falsely increased. LDH, Plasma 372(H) 116 - 250 U/L 05/12/2025 4:53 AM EDT [facility] Comment:Hemolyzed, result ma y be falsely increased. eGFRcr 127.2 mL/min/1.7 3m*2 05/12/2025 4:53 AM EDT [facility] Comment:Reported eGFRcr in m L/min/1.73m2 is based the CKD-EPI 2020 equation that does not use a race coefficient. Blood Venous blood specimen / Unknown Venipuncture / Unknown 05/12/2025 3:58 AM EDT 05/12/2025 4:20 AM EDT us Fredi Duncan MD LAB BLOOD ORDERABLES Meryl massey Result [facility] [address] [place] [address] * Protein, Random, Urine with Creatinine (05/11/2025 9:05 PM EDT) Protein, Urine 6 mg/dL 05/11/2025 9:44 PM EDT [facility] Creatinine, Urine 16 mg/dL 05/11/2025 9:44 PM EDT [facility] Protein/Creatin ine Ratio 0.4 mg/mg Creat 05/11/2025 9:44 PM EDT [facility] Urine Urine specimen obtained by clean catch procedure / Unknown Non-blood Collection / Unknown 05/11/2025 9:05 PM EDT 05/11/2025 9:13 PM EDT Fredi Duncan MD LAB URINE ORDERABLES Meryl l Result Performing Organization Address City/[facility]/ZIP Co de Phone Number [facility] [address] [place] [address] * Type and screen (05/11/2025 9:05 PM EDT) Only the most recent of2 resultswithin the time period is included. Pathologist [facility] ABO/Rh O Positive 05/11/2025 9:11 PM EDT BLOOD BANK Antibody Screen Negative 05/11/2025 9:11 PM EDT BLOOD BANK Specimen Expiration 05/14/2025 23:59 05/11/2025 9:11 PM EDT BLOOD [facility] Blood Venous blood specimen / Unknown Venipuncture / Unknown 05/11/2025 9:05 PM EDT 05/11/2025 9:11 PM EDT Fredi Duncan MD LAB BLOOD BANK TEST ORDER SONYA Final Result Performing Organization Address [facility] Co de Phone Number BLOOD BANK [address] [place] [address] * HIV 1 & 2 Antibody/Antigen Screen (05/03/2025 4:09 PM EDT) Pathologist [facility] HIV 1 & 2 Antibody/Antigen Screen Non Reactive Non Reactive 05/03/2025 6:02 PM EDT [facility] Comment:Screening for HIV 1 & 2 antibodies, and P24 antigen is NONREACTIVE. No confirmatory testing is required. Blood Venous blood specimen / Unknown Venipuncture / Unknown 05/03/2025 4:09 PM EDT 05/03/2025 4:09 PM EDT Connie Orourke LIME BOILER, DNP LAB BLOOD ORDERABLES Final Result Performing Organization Address City/[facility]/ZIP Co de Phone Number [facility] [address] [place] [address] * Hepatitis C Antibody w/Reflex to HCV Quant PCR (05/03/2025 4:09 PM EDT) Pathologist [facility] Hepatitis C Antibody Negative Negative 05/03/2025 5:52 PM EDT [facility] Blood Venous blood specimen / Unknown Venipuncture / Unknown 05/03/2025 4:09 PM EDT 05/03/2025 4:09 PM EDT us Connie Orourke APRN, DNP LAB BLOOD ORDERABLES Final Result Performing Organization Address City/[facility]/ZIP Co de Phone Number [facility] [address] [place] [address] * (ABNORMAL) Rubella Antibody IgG (05/03/2025 4:09 PM EDT) Rubella Antibody IgG Positive(A ) Negative 05/03/2025 7:50 PM EDT [facility] Comment: Rubella IgG Result Interpretation: [...] BLOOD ORDERABLES Final Result Performing Organization Address [facility]/ZIP Co de Phone Number [facility] [address] [place] [address] * Hepatitis B Surface Antigen (05/03/2025 4:09 PM EDT) Pathologist [facility] Hepatitis B Surf Antigen Negative Negative 05/03/2025 6:36 PM EDT [facility] Blood Venous blood specimen / Unknown Venipuncture / Unknown 05/03/2025 4:09 PM EDT 05/03/2025 4:09 PM EDT us Connie Orourke APRN, DNP LAB BLOOD ORDERABLES Final Result [facility] [address] [place] [address] * Group B Streptococcus Screen by Culture (04/27/2025 9:09 AM EDT) Culture No beta hemolytic Streptococcus Group B isolated 04/30/2025 12:31 PM EDT [facility] Swab Rectovaginal / Unknown Non-blood Collection / Unknown 04/27/2025 9:09 AM EDT 04/27/2025 9:09 AM EDT Belia Mcgregor APRN, DNP LAB MICROBIOLOGY - GENE RAL ORDERABLES Final Result Performing Organization Address City/[facility]/[place] [address] * (ABNORMAL) Group B Streptococcus by PCR (04/27/2025 9:09 AM EDT) Group B Streptococcus PCR Result Detected( A) Not Detected 04/29/2025 9:46 AM EDT [facility] Comment:Note: If your patien t has a penicillin allergy, please contact the laboratory [phone] to perform antibiotic susceptibility testing. The specimen [...] to perform high complexity clinical laboratory testing. Belia Mcgregor APRN, DNP LAB MICROBIOLOGY - GENE RAL ORDERABLES Final Result Performing Organization Address City/[facility]/ZIP Co de Phone Number [facility] [address] [place] [address] * OB US 14+ Weeks Anatomy Scan (04/13/2025 11:42 AM EDT) Anatomical Region Laterality Modality Body Ultrasound 04/13/2025 11:2 3 AM EDT Impressions 04/13/2025 11:52 AM EDT The OB Ultrasound you requested has been resulted. Please navigate to the Imaging tab in [employer] for review. This message has been generated by the interface. Narrative Procedure Note Roxi Seo MD - 04/13/2025 IMPRESSION: The OB Ultrasound you requested has been resulted. Please navigate to theImaging tab in [employer] for review. This message has been generated by [employer]. us Connie Orourke APRN, DNP IMG OB US PROCEDURES Final Result from Last 3 Months Insurance JHONATHAN Rios [id number] [facility] [employer] MEDICA[employer] Advance Directives * Full Code (Latest Code Status on File) Date Activated Date Inactivated Comments 05/11/2025 9:57 PM 05/15/2025 3:42 PM Question Answer Comments I have reviewed the capacity from the link above and, if needed, have updated to appropriate status: Yes Care Teams Greenhouse Instructor Relationship Specialty Start Date End Date Humera Meadows APRN [address], [place] [id number] PCP - General 04/05/25
--- OUTSIDE RECORDS SUMMARY | 2025-05-30 11:59 | XMS_ITS | Encounter Summary ---
Author Organization Healthcare Address [address] [place] [address] Care Team Providers Care Denitrator Operator Name Role Phone Humera Meadows APRN Primary Care Provider [phone]- [phone] Encounter Details Date Type Department Care Team ([facility] Contact Info) Description 05/22/2025 Results Follow-Up Medical Office Building Obstetrics and Gynecology [address], [address] [place] [address] Jaqueline Barrett, KENNY, [address] [place] [address] Social History Tobacco Use Types Packs/Day Years Used Date Smoking Tobacco: Never Passive Smoke Exposure: Never Smokeless Tobacco: Never Alcohol Use Standard Drinks/Week Comments Not Currently 0 (1 standard drink = 0.6 oz pur e alcohol) PHQ-2 Answer Date Recorded Patient Health Questionnaire-2 Score 0 04/05/2025 PHQ-9 Answer Date Recorded Patient Health Questionnaire-9 Score 0 04/05/2025 [place] Depression Scale Answer Date Recorded [place] Depression Scale Total 0 05/22/2025 The [...] drink first t sparkle in the morning (EYE-HEAD HOUSEKEEPER) to steady your nerves or to get rid of a hangover? 0 05/11/2025 CAGE Questionnaire Score 0 025 Comments No Sex and Gender Information Value Date Recorded Sex Assigned at Not on file Legal Sex Female 10:37 AM EDT Gender Identity Not on file Sexual Orientation Straight 03/29/2025 11 :10 AM EDT documented as of this encounter Miscellaneous Notes * Result Encounter Note - Jaqueline Barrett APRN, CNM - 05/22/2025 3:54 PM EDT Patient's hemoglobin and platelets are good. This is reassuring that she doesn't have HELLP. One ofher liver enzymes are elevated, but the other one we look at is back to normal. We will just need to recheck again at her 6 week visit. documented in this encounter Plan of Treatment Not on file documented as of this encounter Visit Diagnoses Not on filedocumented in this encounter Additional Health Concerns Assessment Noted Time PHQ-9 Depression Total Score: 0 04/05/20 9:46 AM EDT A Body Mass Index follow-up plan has been documented for the patient 05/22/2025 11:57 AM EDT documented as of this encounter Care Teams Denitrator Operator Relationship Specialty Start Date End Date Humera Meadows APRN [address] [place] [address] PCP - General 04/05/25 documented as of this encounter
--- OUTSIDE RECORDS SUMMARY | 2025-05-30 11:59 | XMS_ITS | Encounter Summary ---
Author Organization Healthcare Address [address] [place] [address] Care Team Providers Care Charger Operator Helper Name Role Phone Humera Meadows APRN Primary Care Provider +1- [phone] Encounter Details Date Type Department Care Team (Latest Contact Info) Description 05/11/2025 Travel Social History Tobacco Use Types Packs/Day Years Used Date Smoking Tobacco: Never Passive Smoke Exposure: Never Smokeless Tobacco: Never Alcohol Use Standard Drinks/Week Comments Not Currently 0 (1 standard drink = 0.6 oz pur e alcohol) PHQ-2 Answer Date Recorded Patient Health Questionnaire-2 Score 0 04/05/2025 PHQ-9 Answer Date Recorded Patient Health Questionnaire-9 Score 0 04/05/2025 [place] Depression Scale Answer Date Recorded [place] Depression Scale Total 0 04/05/2025 The thought of harming myself has occurred to me . Never 04/05/2025 CAGE ASSESSMENT Answer Date Recorded Cage unable [...] drink first t sparkle in the morning (EYE-MOTORCYCLE RACER) to steady your nerves or to get rid of a hangover? 0 05/11/2025 CAGE Questionnaire Score 0 025 Comments Yes Sex and Gender Information Value Date Recorded Sex Assigned at Not on file Legal Sex Female 10:37 AM EDT Gender Identity Not on file Sexual Orientation Straight 03/29/2025 11 :10 AM EDT documented as of this encounter Functional Status * Calculated C-SSRS [...] Zepeda RN documented as of this encounter Plan of Treatment Not on file documented as of this encounter Visit Diagnoses Not on filedocumented in this encounter Additional Health Concerns Assessment Noted Time PHQ-9 Depression Total Score: 0 04/05/20 25 9:46 AM EDT A Body Mass Index follow-up plan has been documented for the patient 05/15/2025 11:27 AM EDT documented as of this encounter Care Teams Charger Operator Helper Relationship Specialty Start Date End Date Humera Meadows APRN [address] [place] [address] PCP - General 04/05/25 documented as of this encounter
--- OUTSIDE RECORDS SUMMARY | 2025-05-30 11:59 | XMS_ITS | Encounter Summary ---
Author Organization Healthcare Address [address] [place] [address] Care Team Providers Care Datacap Developer Name Role Phone Humera Meadows APRN Primary Care Provider +1- [phone] Encounter Details Date Type Department Care Team (Latest Contact Info) Description 05/22/2025 Travel Social History Tobacco Use Types Packs/Day Years Used Date Smoking Tobacco: Never Passive Smoke Exposure: Never Smokeless Tobacco: Never Alcohol Use Standard Drinks/Week Comments Not Currently 0 (1 standard drink = 0.6 oz pur e alcohol) PHQ-2 Answer Date Recorded Patient Health Questionnaire-2 Score 0 04/05/2025 PHQ-9 Answer Date Recorded Patient Health Questionnaire-9 Score 0 04/05/2025 [place] Depression Scale Answer Date Recorded [place] Depression Scale Total 0 05/22/2025 The thought [...] drink first t sparkle in the morning (EYE-PREPRINT ANALYST) to steady your nerves or to get rid of a hangover? 0 05/11/2025 CAGE Questionnaire Score 0 025 Comments No Sex and Gender Information Value Date Recorded Sex Assigned at Not on file Legal Sex Female 10:37 AM EDT Gender Identity Not on file Sexual Orientation Straight 03/29/2025 11 :10 AM EDT documented as of this encounter Plan of Treatment Not on file documented as of this encounter Visit Diagnoses Not on filedocumented in this encounter Additional Health Concerns Assessment Noted Time PHQ-9 Depression Total Score: 0 04/05/20 9:46 AM EDT A Body Mass Index follow-up plan has been documented for the patient 05/22/2025 11:57 AM EDT documented as of this encounter Care Teams Datacap Developer Relationship Specialty Start Date End Date Humera Meadows APRN [address] [place] [address] PCP - General 04/05/25 documented as of this encounter
--- OUTSIDE RECORDS SUMMARY | 2025-05-30 12:00 | XMS_ITS | Encounter Summary ---
Author Organization Healthcare Address [address] [place] [address] Care Team Providers Care Administrative Staff Supervisor Name Role Phone Humera Meadows APRN Primary Care Provider +1- [phone] Encounter Details Date Type Department Care Team (Latest Contact Info) Description 04/27/2025 Travel Social History Tobacco Use Types Packs/Day Years Used Date Smoking Tobacco: Never Passive Smoke Exposure: Never Smokeless Tobacco: Never Alcohol Use Standard Drinks/Week Comments Not Currently 0 (1 standard drink = 0.6 oz pur e alcohol) PHQ-2 Answer Date Recorded Patient Health Questionnaire-2 Score 0 04/05/2025 PHQ-9 Answer Date Recorded Patient Health Questionnaire-9 Score 0 04/05/2025 [place] Depression Scale Answer Date Recorded [place] Depression Scale Total 0 04/05/2025 The thought [...] documented as of this encounter Care Teams Administrative Staff Supervisor Relationship Specialty Start Date End Date Humera Meadows APRN [address] [place] [address] PCP - General 04/05/25 documented as of this encounter
--- OUTSIDE RECORDS SUMMARY | 2025-05-30 12:00 | XMS_ITS | Encounter Summary ---
Author Organization Healthcare Address [address] [place] [address] Care Team Providers Care Rail Car Unloader Name Role Phone Humera Meadows APRN Primary Care Provider +1- [phone] Encounter Details Date Type Department Care Team (Latest Contact Info) Description 05/10/2025 Travel Social History Tobacco Use Types Packs/Day Years Used Date Smoking Tobacco: Never Passive Smoke Exposure: Never Smokeless Tobacco: Never Alcohol Use Standard Drinks/Week Comments Not Currently 0 (1 standard drink = 0.6 oz pur e alcohol) PHQ-2 Answer Date Recorded Patient Health Questionnaire-2 Score 0 04/05/2025 PHQ-9 Answer Date Recorded Patient Health Questionnaire-9 Score 0 04/05/2025 [place] Depression Scale Answer Date Recorded [place] Depression Scale Total 0 04/05/2025 The thought [...] drink first t sparkle in the morning (EYE-CREATIVE DIRECTOR) to steady your nerves or to [...] documented as of this encounter Care Teams Rail Car Unloader Relationship Specialty Start Date End Date Humera Meadows APRN [address] [place] [address] PCP - General 04/05/25 documented as of this encounter
--- OUTSIDE RECORDS SUMMARY | 2025-05-30 12:00 | XMS_ITS | Encounter Summary ---
Author Organization Healthcare Address [address] [place] [address] Care Team Providers Care Denture Technician Name Role Phone Humera Meadows APRN Primary Care Provider +1- [phone] Encounter Details Date Type Department Care Team (Latest Contact Info) Description 04/20/2025 Travel Social History Tobacco Use Types Packs/Day Years Used Date Smoking Tobacco: Never Passive Smoke Exposure: Never Smokeless Tobacco: Never Alcohol Use Standard Drinks/Week Comments Not Currently 0 (1 standard drink = 0.6 oz pur e alcohol) PHQ-2 Answer Date Recorded Patient Health Questionnaire-2 Score 0 04/05/2025 PHQ-9 Answer Date Recorded Patient Health Questionnaire-9 Score 0 04/05/2025 [place] Depression Scale Answer Date Recorded [place] Depression Scale Total 0 04/05/2025 The thought [...] documented as of this encounter Care Teams Denture Technician Relationship Specialty Start Date End Date Humera Meadows APRN [address] [place] [address] PCP - General 04/05/25 documented as of this encounter
--- OUTSIDE RECORDS SUMMARY | 2025-05-30 12:00 | XMS_ITS | Encounter Summary ---
Author Organization Healthcare Address [address] [place] [address] Care Team Providers Care Senior Agricultural Assistant Name Role Phone Humera Meadows APRN Primary Care Provider +1- [phone] Encounter Details Date Type Department Care Team (Latest Contact Info) Description 04/05/2025 Travel Social History Tobacco Use Types Packs/Day Years Used Date Smoking Tobacco: Never Passive Smoke Exposure: Never Smokeless Tobacco: Never Alcohol Use Standard Drinks/Week Comments Not Currently 0 (1 standard drink = 0.6 oz pur e alcohol) PHQ-2 Answer Date Recorded Patient Health Questionnaire-2 Score 0 04/05/2025 PHQ-9 Answer Date Recorded Patient Health Questionnaire-9 Score 0 04/05/2025 [place] Depression Scale Answer Date Recorded [place] Depression Scale Total 0 04/05/2025 The thought of harming myself has occurred to me . Never 04/05/2025 Comments Yes Sex and Gender Information Value Date Recorded Sex Assigned at Not on file Legal Sex Female 10:37 AM EDT Gender Identity Not on file Sexual Orientation Straight 03/29/2025 11 :10 AM EDT documented as of this encounter Functional Status * Over the past 2 weeks, how often have you been bothered by any of the following problems? Question Answer Date of Assessment Author Little interest or pleasure in doing things Not at all 04/05/2025 9:46 AM EDT Nikki Tirado Feeling down, depressed, or hopeless Not at [...] usual. Not at all 04/05/2025 9:46 AM Nikki Doherty Thoughts that you would be better off or hurting yourself in some way Not at all 04/05/2025 9:46 AM Richelle Ambrose Patient Health Questionnaire -9 Score 0 04/05/2025 9:46 AM Nikki Ambrose * How difficult have these problems made it for you to do your work, take care of things at home, or get along with other people? Answer Date of Assessment Author Not difficult at all 04/05/2025 9:46 AM Nikki Haley documented as of this encounter Plan of Treatment Not on file documented as of this encounter Visit Diagnoses Not on filedocumented in this encounter Additional Health Concerns Assessment Noted Time PHQ-9 Depression Total Score: 0 04/05/20 25 9:46 AM EDT A Body Mass Index follow-up plan has been documented for the patient 04/05/2025 11:03 AM EDT documented as of this encounter Care Teams Senior Agricultural Assistant Relationship Specialty Start Date End Date Humera Meadows APRN [address] [id number] PCP - General 04/05/25 documented as of this encounter
--- OUTSIDE RECORDS SUMMARY | 2025-05-30 12:00 | XMS_ITS | Encounter Summary ---
Author Organization Healthcare Address [address] [place] [address] Care Team Providers Care Clerical Car Checker Name Role Phone Humera Meadows APRN Primary Care Provider +1- [phone] Encounter Details Date Type Department Care Team (Latest Contact Info) Description 04/13/2025 Travel Social History Tobacco Use Types Packs/Day Years Used Date Smoking Tobacco: Never Passive Smoke Exposure: Never Smokeless Tobacco: Never Alcohol Use Standard Drinks/Week Comments Not Currently 0 (1 standard drink = 0.6 oz pur e alcohol) PHQ-2 Answer Date Recorded Patient Health Questionnaire-2 Score 0 04/05/2025 PHQ-9 Answer Date Recorded Patient Health Questionnaire-9 Score 0 04/05/2025 [place] Depression Scale Answer Date Recorded [place] Depression Scale Total 0 04/05/2025 The thought [...] documented as of this encounter Care Teams Clerical Car Checker Relationship Specialty Start Date End Date Humera Meadows APRN [address] [place] [address] PCP - General 04/05/25 documented as of this encounter
--- OUTSIDE RECORDS SUMMARY | 2025-05-30 12:00 | XMS_ITS | Encounter Summary ---
Author Organization Healthcare Address [address] [place] [address] Care Team Providers Care Section Plotter Operator Name Role Phone Humera Meadows APRN Primary Care Provider +1- [phone] Encounter Details Date Type Department Care Team (Latest Contact Info) Description 05/03/2025 Travel Social History Tobacco Use Types Packs/Day Years Used Date Smoking Tobacco: Never Passive Smoke Exposure: Never Smokeless Tobacco: Never Alcohol Use Standard Drinks/Week Comments Not Currently 0 (1 standard drink = 0.6 oz pur e alcohol) PHQ-2 Answer Date Recorded Patient Health Questionnaire-2 Score 0 04/05/2025 PHQ-9 Answer Date Recorded Patient Health Questionnaire-9 Score 0 04/05/2025 [place] Depression Scale Answer Date Recorded [place] Depression Scale Total 0 04/05/2025 The thought [...] documented as of this encounter Care Teams Section Plotter Operator Relationship Specialty Start Date End Date Humera Meadows APRN [address] [place] [address] PCP - General 04/05/25 documented as of this encounter
[2025-05-30 12:28] LABS: Hematocrit 42.6 % (37.0-47.0); Hemoglobin 13.4 g/dL (12.2-16.2); Immature Granulocytes % 0.2 %; Mean Corpuscular HGB Conc 31.5 g/dL (31.8-35.4); Mean Corpuscular Hemoglobin 28.8 pg (27.0-31.2); Mean Corpuscular Volume 91.4 fl (81-99); Nucleated Red Blood Cells % 0 %; Platelet Count 337 K/mm3 (142-424); Red Blood Count 4.66 M/mm3 (4.20-5.40); Red Cell Distribution Width-SD 47.9 fL; White Blood Count 4.3 K/mm3 (4.8-10.8)
[2025-05-30 12:36] LABS: Ammonia < 9 umol/L (9-30)
[2025-05-30 13:00] LABS: Alanine Aminotransferase 20 U/L (12-78); Albumin Level 4.2 g/dl (3.5-5.0); Albumin/Globulin Ratio 1.3 (1.1-1.8); Alkaline Phosphatase 128 U/L (38-126); Anion Gap 13.5 mEq/L (5-15); Aspartate Amino Transferase 24 U/L (14-36); Bilirubin,Total 1.0 mg/dl (0.2-1.3); Blood Urea Nitrogen 16 mg/dl (7-17); Calcium 9.5 mg/dl (8.4-10.2); Carbon Dioxide 26 mmol/L (22.0-30.0); Chloride 103 mmol/L (98-107); Creatinine,Serum 0.90 mg/dl (0.52-1.04); Estimated Glomerular Filt Rate 77 ml/min (>60); GFR (African American) 93 ML/MIN (>60); Globulin 3.3 g/dL (1.3-3.2); Glucose 93 mg/dl (74-100); Potassium 4.5 mmoL/L (3.5-5.1); Sodium 138 mmol/L (136-145); Total Protein,Serum 7.5 g/dl (6.3-8.2)
[2025-05-30 13:06] LABS: C-Reactive Protein 1.4 mg/L (0-4)
[2025-05-30 13:32] LABS: Thyroid Stimulating Hormone 0.79 uIU/mL (0.465-4.68)
[2025-05-30 13:36] LABS: Ferritin 87.5 ng/ml (6.24-137)
[2025-05-30 13:51] LABS: Vitamin B12 673 pg/mL (239-931)
== END 2025-05-30 23:59 | disposition home or self-care (01) ==
PROVIDERS: PCP Nurse Practitioner Family; Visit Provider Nurse Practitioner Family
DX: O14.90 Unspecified pre-eclampsia, unspecified trimester (principal); R74.8 Abnormal levels of other serum enzymes; R41.0 Disorientation, unspecified; Z3A.00 Weeks of gestation of pregnancy not specified
CPT/HCPCS: 36415; 80053; 82140; 82607; 82728; 83735; 84443; 85025; 86140

== ENCOUNTER 2025-06-16 10:50 | Outpatient (CLI) | payer BC, MEDICAID, SELFPAY ==
--- OUTSIDE RECORDS SUMMARY | 2025-04-20 07:30 | XMS_ITS | Encounter Summary ---
Author Organization Healthcare Address [address] [place] [address] Care Team Providers Care Banquet Waiter/Waitress Name Role Phone Humera Meadows APRN Primary Care Provider +1- [phone] Reason for Visit * Reason Comments Routine Visit Encounter Details Date Type Department Care Team (Latest Contact Info) Description 04/20/2025 8:30 AM EDT Routine Medical Office Building Obstetrics and Gynecology [address] [facility], [address] [place] [address] Connie Orourke APRN, DNP [address] [place] [address] Encounter for supervision of normal first in third trimester (Primary Dx) Social History Tobacco Use Types Packs/Day Years Used Date Smoking Tobacco: Never Passive Smoke Exposure: Never Smokeless Tobacco: Never Alcohol Use Standard Drinks/Week Comments Not Currently 0 (1 standard drink = 0.6 oz pur e alcohol) PHQ-2 Answer Date Recorded Patient Health Questionnaire-2 Score 0 04/05/2025 PHQ-9 Answer Date Recorded Patient Health Questionnaire-9 Score 0 04/05/2025 [place] Depression Scale Answer Date Recorded [place] Depression Scale Total 0 04/05/2025 The thought [...] Sign Reading Time Taken Comments Blood Pressure 121/79 04/20/2025 8:57 AM EDT Pulse 99 04/20/2025 8:57 AM EDT Temperature 36.1 C (97 F) 04/20/2025 8:57 AM EDT Respiratory Rate 17 04/20/2025 8:57 AM EDT Oxygen Saturation 99% 04/20/2025 8:57 AM EDT Inhaled Oxygen Concentration - - Weight 65.9 kg (145 lb 4.5 oz) 04/20/2025 8:57 A M EDT Height 165.1 cm (5' 5 ) 04/20/2025 8:57 AM EDT Body Mass Index 24.18 04/20/2025 8:57 AM EDT documented in this encounter Miscellaneous Notes * Patient Instructions - Connie Orourke, KENNY, HIRAM - 04/20/2025 8:30 AM EDT Images from the original note [...] transportation, money problems,housing, access to food, and early childhood education coordinator. If you can???t get to medical appointments, [...] discharge Phone Numbers [facility] (Triage): [facility] Obstetrics & Gynecology: [facility] Clinic: Stewarding Supervisor Clinic: Family Practice: [facility] Obstetrics & Gynecology [place]: [facility] Obstetrics & Gynecology [place]: What Is Group B Strep? Group B [...] or irregular heart rate Beginning to Breastfeed: Yibv-gn-Vdor What is qerr-pr-jfgn? After , your nurse will clean and dry your baby. Your baby will then be placed on your chest bsss-av-xdwi right away. Your baby???s shoulders should be [...] the first time. Your baby will stay snna-aq-wabp with you for as long as you like after . If you get too sleepy, let your nurse know. Only you or your partner can do illy-xv-anjd with your baby these first few hours. Visitors may come in, but you must not pass your baby around during this time. This could cause your baby to get cold and then sick. Uqui-zm-xaow is a great way to remind your [...] also lowers your risk of depression. Being zuym-qn-aujq with your baby can help reduce your [...] for feeding. Placing your baby in the cgqp-rd-jary position on your chest. This can help [...] Notes - Connie Orourke APRN, DNP - 04/20/2025 8:30 AM EDT Note Subjective Meena Julian is a @ 35w3d here for a visit. She was a NAE from [place] at 33 09/09. Denies VB, LOF, cramping, ctx. +FM. Denies headaches, visual changes. Occasional extremity swelling with walking that improves with rest and elevation. Concerns today: cramping in calves that is improving and pelvic pain. Objective Visit Vitals BP 121/79 Pulse 99 Temp (!) 36.1 ??C (97 ??F) (Tympanic) Resp 17 Heart Rate: 125 Fundal Height (cm): 35 cm Assessment Assessment & Plan Encounter for supervision of normal first in third trimester RTC in 1 week GBS at next RPV Discussed location of OB ED and precautions Delivery planning: HUNTER, ? Epidural, formula, condoms for contraception Declined Tdap and RSV 24yo LMP: 08/15/2024 POLLY: 05/22/2025 1st Tri BMI: 21.2 US: 10/04/2024 - TVUS in provider documentation (no report). Single IUP @ 7.2 weeks, normal yolk sac. [id number]. Measurements consistent with LMP. 01/02/2025 - Anatomy Scan; 20.0 weeks, Cepahlic, posterior placenta-Grade 1, KATHERINE WNL, MVP 3.97cm, [id number] (47%), 3VC with satisfactory insertion, FHR 153bpm, anatomy appears normal. 01/16/25 - Follow-up for cardiac 4 chamber view. CL 2.9cm, FHR 152bpm, MVP 2.60cm, cephalic, cardiacviews appear normal. 04/13/25 at 34 3/7: vtx, post plac, AF WNL, AC 65%, EFW 49%, normal limited anatomy 09/28/24 Labs: Beta hC Progesterone: 9.7 10/04/2024 Labs: PAP Negative STI Testing: Chlamydia and Gonorrheae Negative Urine Dip: 100++ Protein 12/19/2024 Labs: Urine Dip: 30+ protein Orders: Rubella Antibody IgG; Future CBC W/O Differential; Future Urine Culture; Future Type and Screen; Future Chlamydia trachomatis DNA by PCR; Future HIV 1 & 2 Antibody/Antigen Screen w/Reflex to HIV 1/2 Differentiation; Future Hepatitis B Surface Antigen; Future Hepatitis C Antibody w/Reflex to HCV Quant PCR; Future Neisseria gonorrhea DNA by PCR; Future Treponema Pallidum (Syphilis) Antibodies with Reflex to RPR and RPR Titer (Those with NO known Syphilis); Future documented in this encounter Plan of Treatment Scheduled Orders Name Type Priority Associated Diagnoses Orde r Schedule Urine Culture Microbiology Routine Encounter for supervision of normal first in third trimester Expected: 05/03/2025, Expires: 10/22/2026 Chlamydia trachomatis DNA by PCR Microbiology Routine Encounter for supervision of normal first in third trimester Expected: 05/03/2025, Expires: 10/22/2026 Neisseria gonorrhea DNA by PCR Microbiology Routine Encounter for supervision of normal first in third trimester Expected: 05/03/2025, Expires: 10/22/2026 documented as of this encounter Results * Treponema Pallidum (Syphilis) Antibodies with Reflex to RPR and RPR Titer (Those with NO known Syphilis) (05/03/2025 4:09 PM EDT) Pathologist [facility] Syphilis Antibody (IgG+IgM) Nonreactive Nonreactive 05/03/2025 6:36 PM EDT [facility] Comment:Nonreactive. No sero logic evidence of syphilis. No follow-up necessary unless clinically indicated (e.g., early syphilis). Blood Venous blood specimen / Unknown Venipuncture / Unknown 05/03/2025 4:09 PM EDT 05/03/2025 4:09 PM EDT Connie Orourke APRN, HIRAM LAB BLOOD ORDERABLES Final Result Performing Organization Address City/[facility]/ZIP Co de Phone Number [facility] [address] [place] [address] * Hepatitis C Antibody w/Reflex to HCV Quant PCR (05/03/2025 4:09 PM EDT) Pathologist [facility] Hepatitis C Antibody Negative Negative 05/03/2025 5:52 PM EDT [facility] Blood Venous blood specimen / Unknown Venipuncture / Unknown 05/03/2025 4:09 PM EDT 05/03/2025 4:09 PM EDT us Connie Orourke APRN, DNP LAB BLOOD ORDERABLES Final Result [facility] [address] [place] [address] * Hepatitis B Surface Antigen (05/03/2025 4:09 PM EDT) Hepatitis B Surf Antigen Negative Negative 05/03/2025 6:36 PM EDT [facility] Blood Venous blood specimen / Unknown Venipuncture / Unknown 05/03/2025 4:09 PM EDT 05/03/2025 4:09 PM EDT Connie Orourke APRN, DNP LAB BLOOD ORDERABLES Final Result [facility] [address] [place] [address] * Type and Screen (05/03/2025 4:09 PM EDT) ABO/Rh O Positive 05/03/2025 5:21 PM EDT BLOOD BANK Antibody Screen Negative 05/03/2025 5:21 PM EDT BLOOD BANK Specimen Expiration 05/06/2025 23:59 05/03/2025 5:21 PM EDT [facility]LO[facility]ANK Blood Venous blood specimen / Unknown Venipuncture / Unknown 05/03/2025 4:09 PM EDT 05/03/2025 4:09 PM EDT Connie Orourke APRN, DNP LAB BLOOD BANK TEST O RDERABLES Final Result Performing Organization Address City/[facility] Co de Phone Number BLOOD BANK [address] [place] [address], * (ABNORMAL) CBC W/O Differential (05/03/2025 4:09 PM EDT) WBC Count 10.40(H) 3.70 - 10.30 10*3/uL LAB HEMATOLOGY METHOD 05/03/2025 5:21 PM EDT [facility] RBC Count 3.73(L) 3.90 - 5.20 10*6/uL LAB HEMATOLOGY METHOD 05/03/2025 5:21 PM EDT [facility] HGB 10.8(L) 11.2 - 15.7 g/dL LAB HEMATOLOGY METHOD 05/03/2025 5:21 PM EDT [facility] HCT 34.1 34.0 - 45.0 % LAB HEMATOLOGY METHOD 05/03/2025 5:21 PM EDT [facility] Platelet Count 200 155 - 369 10*3/uL LAB HEMATOLOGY METHOD 05/03/2025 5:21 PM EDT [facility] MCV 91 79 - 98 fL LAB HEMATOLOGY METHOD 05/03/2025 5:21 PM EDT [facility] MCH 29.0 26.0 - 32.0 pg LAB HEMATOLOGY METHOD 05/03/2025 5:21 PM EDT [facility] MCHC 31.7 30.7 - 35.5 g/dL LAB HEMATOLOGY METHOD 05/03/2025 5:21 PM EDT [facility] RDW 13.6 11.5 - 14.5 % LAB HEMATOLOGY METHOD 05/03/2025 5:21 PM EDT [facility] MPV 12.1 8.8 - 12.5 fL LAB HEMATOLOGY METHOD 05/03/2025 5:21 PM EDT [facility] nRBC 0.0 <=0.0 per 100 WBCs LAB HEMATOLOGY METHOD 05/03/2025 5:21 PM EDT [facility] Blood Venous blood specimen / Unknown Venipuncture / Unknown 05/03/2025 4:09 PM EDT 05/03/2025 4:09 PM EDT Connie Orourke APRN, DNP LAB BLOOD ORDERABLES Final Result [facility] [address] [place] [address] * (ABNORMAL) Rubella Antibody IgG (05/03/2025 4:09 PM EDT) Rubella Antibody IgG Positive(A ) Negative 05/03/2025 7:50 PM EDT [facility] Comment: Rubella IgG Result Interpretation: Negative: No IgG antibody specific to the rubella virus detected. Patient is presumed not to have had a previous exposure to rubella through infection or vaccination. Equivocal: Serologic status cannot be determined. Repeat testing in 10-14 days may be helpful. Positive: IgG antibody specific to rubella detected. IgG antibody levels are at a level considered to indicate positive immunity through infection or vaccination. Blood Venous blood specimen / Unknown Venipuncture / Unknown 05/03/2025 4:09 PM EDT 05/03/2025 4:09 PM EDT us Connie Orourke DRAPERY SUPERVISOR, DNP LAB BLOOD ORDERABLES Final Result [facility] [address] [place] [address] documented in this encounter Visit Diagnoses Diagnosis Encounter for supervision of normal first in third trimester- Primary documented in this encounter Additional Health Concerns Assessment Noted Time PHQ-9 Depression Total Score: 0 04/05/20 9:46 AM EDT A Body Mass Index follow-up plan has been documented for the patient 04/20/2025 9:45 AM EDT documented as of this encounter Care Teams Banquet Waiter/Waitress Relationship Specialty Start Date End Date Humera Meadows APRN [address] [place] [address] PCP - General 04/05/25 documented as of this encounter
--- OUTSIDE RECORDS SUMMARY | 2025-04-27 07:40 | XMS_ITS | Encounter Summary ---
Author Organization Healthcare Address [address] [place] [address] Care Team Providers Care Security Management Specialist Name Role Phone Humera Meadows APRN Primary Care Provider +1- [phone] Reason for Visit * Reason Comments Routine Visit Encounter Details Date Type Department Care Team ([facility] Contact Info) Description 04/27/2025 8:40 AM EDT Routine Medical Office Building Obstetrics and Gynecology [address], [address] [place] [address] Belia Mcgregor APRN, [facility] [address] [place] [address] care, first , antepartum (Primary Dx) Social History Tobacco Use Types Packs/Day Years Used Date Smoking Tobacco: Never Passive Smoke Exposure: Never Smokeless Tobacco: Never Tobacco Cessation:Counseling Given: No Alcohol Use Standard Drinks/Week Comments Not Currently 0 (1 standard drink = 0.6 oz pur e alcohol) PHQ-2 Answer Date Recorded Patient Health Questionnaire-2 Score 0 04/05/2025 PHQ-9 Answer Date Recorded Patient Health Questionnaire-9 Score 0 04/05/2025 [place] Depression Scale Answer Date Recorded [place] Depression Scale Total 0 04/05/2025 The thought [...] Sign Reading Time Taken Comments Blood Pressure 118/83 04/27/2025 9:04 AM EDT Pulse 107 04/27/2025 9:04 AM EDT Temperature - - Respiratory Rate 18 04/27/2025 9:04 AM EDT Oxygen Saturation 98% 04/27/2025 9:04 AM EDT Inhaled Oxygen Concentration - - Weight 65.5 kg (144 lb 6.4 oz) 04/27/2025 9:04 A M EDT Height 165.1 cm (5' 5 ) 04/27/2025 9:04 AM EDT Body Mass Index 24.03 04/27/2025 9:04 AM EDT documented in this encounter Miscellaneous Notes * Patient Instructions - Belia Mcgregor, KENNY, HIRAM - 04/27/2025 8:40 AM EDT Images from the original note [...] money problems,housing, access to food, and early childhood. If you can???t get to [...] discharge Phone Numbers [facility] (Triage): [facility] Obstetrics & Gynecology: [facility] Clinic: Associate Juvenile [employer] Judge Clinic: Family Practice: [facility] Obstetrics & Gynecology [place]: [facility] Obstetrics & Gynecology [place]: What Is Group B Strep? Group B [...] or irregular heart rate Beginning to Breastfeed: Ppqi-rp-Geuo What is xvum-ht-xaoe? After , your nurse will clean and dry your baby. Your baby will then be placed on your chest dekw-nh-shhl right away. Your baby???s shoulders should be [...] the first time. Your baby will stay elaz-yp-ocyx with you for as long as you like after . If you get too sleepy, let your nurse know. Only you or your partner can do ghsm-gm-eyjm with your baby these first few hours. Visitors may come in, but you must not pass your baby around during this time. This could cause your baby to get cold and then sick. Cwqo-xh-txty is a great way to remind your [...] also lowers your risk of depression. Being qhwy-ld-fmzv with your baby can help reduce your [...] for feeding. Placing your baby in the uqam-id-onpf position on your chest. This can help [...] watch the video * Progress Notes - Belia Mcgregor APRN, DNP - 04/27/2025 8:40 AM EDT Note Subjective Meena Julian is a @ 36w2d 05/22/2025, by Last Menstrual Period here for supervision of low risk . Denies vaginal bleeding, leakage of fluid, regular/painful contractions. She has noted increased BH ctxn over the last week. Reports normal movement. History of Present Illness She does not think she wants an epidural. The patient [facility] not [facility] education classes. She has expressed interest in understanding the various options available for managing labor pain, with her primary concern being the potential pain associated with perineal lacerations during childbirth. Initial blood work was performed at the onset of her but those records have not been received, and she declines additional laboratory tests. She reports she is currently taking vitamins and maintains a diet rich in protein, particularly steak. Objective Visit Vitals BP 118/83 (BP Location: Left arm, Patient Position: Sitting, BP Cuff Size: Adult) Pulse 107 Ht 1.651 m (5' 5 ) Wt 65.5 kg (144 lb 6.4 oz) SpO2 98% BMI 24.03 kg/m?? Wt Readings from Last 3 Encounters: 04/27/25 65.5 kg (144 lb 6.4 oz) 04/20/25 65.9 kg (145 lb 4.5 oz) 04/05/25 65.3 kg (143 lb 15.4 oz) Physical Exam Constitutional: General: She is not in acute distress. Appearance: Normal appearance. She is not ill-appearing, toxic-appearing or diaphoretic. HENT: Head: Normocephalic and atraumatic. Mouth/Throat: Mouth: Mucous membranes are moist. Eyes: General: No scleral icterus. Pulmonary: Effort: Pulmonary effort is normal. No respiratory distress. Abdominal: Palpations: Abdomen is soft. Tenderness: There is no abdominal tenderness. Musculoskeletal: General: Normal range of motion. Neurological: General: No focal deficit present. Mental Status: She is alert. Skin: General: Skin is warm and dry. Psychiatric: Behavior: Behavior normal. Vitals and nursing note reviewed. Heart Rate: 130 Fundal Height (cm): 36 cm Current Medications[1] Assessment & Plan Problem List Items Addressed This Visit care, first , antepartum - Primary Overview Late NAE from [place] Delivery planning: [place]UT[place], ? Epidural, formula, condoms for contraception Declined Tdap and RSV US: 10/04/2024 - TVUS in provider documentation (no report). Single IUP @ 7.2 weeks, normal yolk sac. [id number]. Measurements consistent with LMP. 01/02/2025 - Anatomy Scan; 20.0 weeks, Cepahlic, posterior placenta-Grade 1, KATHERINE WNL, MVP 3.97cm, [id number] (47%), 3VC with satisfactory insertion, FHR 153bpm, anatomy appears normal. 01/16/25 - Follow-up for cardiac 4 chamber view. CL 2.9cm, FHR 152bpm, MVP 2.60cm, cephalic, cardiacviews appear normal. 10/04/2024 Labs: PAP Negative STI Testing: Chlamydia and Gonorrheae Negative Relevant Orders Group B Streptococcus by PCR (Completed) Group B Streptococcus Screen by Culture (Completed) GBS today. Discussed rationale for routine labs every trimester but pt declines. Return in 1 week for routine OB visit. L&D precautions & kick counts. Belia Mcgregor APRN, DNP [1] Current Outpatient Medications: Multiple Vitamins-Minerals (HM MULTIVITAMIN ADULT GUMMY PO), Take by mouth., Disp: , Rfl: documented in this encounter Plan of Treatment Not on file documented as of this encounter Procedures Procedure Name Priority Date/Time Associated Diagnosis Comments GROUP B STREPTOCOCCUS SCREEN BY CULTURE Routine 04/27/2025 9:09 AM EDT care, first , antepartum GROUP B STREPTOCOCCUS BY PCR Routine 04/27/2025 9:09 AM EDT care, first , antepartum documented in this encounter Results * Group B Streptococcus Screen by Culture (04/27/2025 9:09 AM EDT) Culture No beta hemolytic Streptococcus Group B isolated 04/30/2025 12:31 PM EDT [facility] Swab Rectovaginal / Unknown Non-blood Collection / Unknown 04/27/2025 9:09 AM EDT 04/27/2025 9:09 AM EDT us Belia Mcgregor APRN, DNP LAB MICROBIOLOGY - GENE RAL ORDERABLES Final Result [facility] [address] [place] [address] * (ABNORMAL) Group B Streptococcus by PCR (04/27/2025 9:09 AM EDT) Group B Streptococcus PCR Result Detected( A) Not Detected 04/29/2025 9:46 AM EDT [facility] Comment:Note: If your patien t has a penicillin allergy, please contact the laboratory [phone] to perform antibiotic susceptibility testing. The specimen will be saved for one month. Swab Rectovaginal / Unknown Non-blood Collection / Unknown 04/27/2025 9:09 AM EDT 04/27/2025 9:09 AM EDT Narrative [facility] - 04/29/2025 9:46 AM EDT This test is FDA approved for use with vaginal/rectal swab using the eSwabs. This test is used for clinical purposes. It should not be regarded as investigational or for research. This laboratory is certified under the Clinical Laboratory improvement Amendments of 1988 (CLIA-88 as qualified to perform high complexity clinical laboratory testing. us Belia Mcgregor APRN, HIRAM LAB MICROBIOLOGY - GENE RAL ORDERABLES Final Result Performing Organization Address City/State/[facility] Co de Phone Number [facility] [address] [place] [address] documented in this encounter Visit Diagnoses Diagnosis care, first , antepartum- Primary documented in this encounter Additional Health Concerns Assessment Noted Time PHQ-9 Depression Total Score: 0 04/05/20 9:46 AM EDT A Body Mass Index follow-up plan has been documented for the patient 05/03/2025 10:46 AM EDT documented as of this encounter Care Teams Security Management Specialist Relationship Specialty Start Date End Date Humera Meadows APRN [address] [place] [address] PCP - General 04/05/25 documented as of this encounter
--- OUTSIDE RECORDS SUMMARY | 2025-05-03 14:15 | XMS_ITS | Encounter Summary ---
Author Organization Healthcare Address [address] [place] [address] Care Team Providers Care Lead Manufacturing Technician Name Role Phone Humera Meadows APRN Primary Care Provider +1- [phone] Reason for Visit * Reason Comments Routine Visit Encounter Details Date Type Department Care Team ([facility] Contact Info) Description 05/03/2025 3:15 PM EDT Routine Medical Office Building Obstetrics and Gynecology [address], [address] [place] [address] Vickie Luevano MD [address] [place] [address] care, first , antepartum (Primary Dx); 37 weeks gestation of Social History Tobacco Use Types Packs/Day Years Used Date Smoking Tobacco: Never Passive Smoke Exposure: Never Smokeless Tobacco: Never Alcohol Use Standard Drinks/Week Comments Not Currently 0 (1 standard drink = 0.6 oz pur e alcohol) PHQ-2 Answer Date Recorded Patient Health Questionnaire-2 Score 0 04/05/2025 PHQ-9 Answer Date Recorded Patient Health Questionnaire-9 Score 0 04/05/2025 [place] Depression Scale Answer Date Recorded [place] Depression Scale Total 0 04/05/2025 The thought [...] Sign Reading Time Taken Comments Blood Pressure 119/86 05/03/2025 3:32 PM EDT Pulse 113 05/03/2025 3:32 PM EDT Temperature - - Respiratory Rate - - Oxygen Saturation 98% 05/03/2025 3:32 PM EDT Inhaled Oxygen Concentration - - Weight - - Height 165.1 cm (5' 5 ) 05/03/2025 3:32 PM EDT Body Mass Index - - documented in this encounter Miscellaneous Notes * Assessment & Plan Note - Pardeep Kong - 05/03/2025 3:15 PM EDTAssociated Problem(s): care, first , antepartum * Progress Notes - Pardeep Kong - 05/03/2025 3:15 PM EDT CC: Routine Care: Third Trimester Meena Julian is a 24 y.o. at 37w2d by LMP/7wk sono. Subjective Concerns today: none Normal movement. No vaginal bleeding, leakage of fluid or contractions. No headache, visual change or right upper quadrant pain. Objective Physical Exam BP: 119/86 Heart Rate: 140 Fundal Height (cm): 36 cm Expected Total Weight Gain: Could not be calculated Pregravid BMI: Could not be calculated Assessment/Plan Routine Care at 37w2d Problem List Items Addressed This Visit care, first , antepartum - Primary Overview Late NAE from [place] Delivery planning: [place], ? Epidural, formula, condoms for contraception Declined Tdap and RSV US: 10/04/2024 - TVUS in provider documentation (no report). Single IUP @ 7.2 weeks, normal yolk sac. [id number]. Measurements consistent with LMP. 01/02/2025 - Anatomy Scan; 20.0 weeks, Cepahlic, posterior placenta-Grade 1, KATHERINE WNL, MVP 3.97cm, [id number] (47%), 3VC with satisfactory insertion, FHR 153bpm, anatomy appears normal. 01/16/25 - Follow-up for cardiac 4 chamber view. CL 2.9cm, FHR 152bpm, MVP 2.60cm, cephalic, cardiacviews appear normal. 10/04/2024 Labs: PAP Negative STI Testing: Chlamydia and Gonorrheae Negative Current Assessment & Plan Other Visit Diagnoses 37 weeks gestation of Relevant Orders MyChart Care Plan Assessment & Plan care, first , antepartum 37 weeks gestation of Declined flu shot today Will obtain labs today sex: Female [facility] I am having Meena Julian maintain her Multiple Vitamins-Minerals (HM MULTIVITAMIN ADULT GUMMY PO). Reviewed routine labor precautions. F/u in 1 week. Pardeep Kong MS4 Cosigned by Vickie Luevano MD at 05/03/2025 9:48 PM EDT Associated attestation - Vickie Luevano MD - 05/03/2025 9:48 PM EDT I saw and evaluated the patient with the medical/SHIP UNLOADER/PA student. I discussed the case with the medical/SHIP UNLOADER/PA student and agree with the findings and plan as documented. I personally performed the Examand Medical Decision Making. documented in this encounter Plan of Treatment Scheduled Orders Name Type Priority Associated Diagnoses Orde r Schedule MyChart Care Plan Procedures Routine 37 weeks gestation of Expected: 05/03/2025 (Approximate), Expires: 11/04/2026 documented as of this encounter Visit Diagnoses Diagnosis care, first , antepartum- Primary 37 weeks gestation of documented in this encounter Additional Health Concerns Assessment Noted Time PHQ-9 Depression Total Score: 0 04/05/20 9:46 AM EDT A Body Mass Index follow-up plan has been documented for the patient 05/03/2025 9:48 PM EDT documented as of this encounter Care Teams Lead Manufacturing Technician Relationship Specialty Start Date End Date Humera Meadows APRN [address] [id number] PCP - General 04/05/25 documented as of this encounter
--- OUTSIDE RECORDS SUMMARY | 2025-05-10 14:30 | XMS_ITS | Encounter Summary ---
Author Organization Healthcare Address [address] [place] [address] Care Team Providers Care Polygraph Technician Name Role Phone Humera Meadows APRN Primary Care Provider [phone]- [phone] Reason for Visit * Reason Comments Routine Visit Encounter Details Date Type Department Care Team ([facility] Contact Info) Description 05/10/2025 3:30 PM EDT Routine Medical Office Building Obstetrics and Gynecology [address], [address] [place] [address] Mayuri Husain APRN [address] [place] [address] 38 weeks gestation of (Primary Dx) Social History Tobacco Use Types Packs/Day Years Used Date Smoking Tobacco: Never Passive Smoke Exposure: Never Smokeless Tobacco: Never Alcohol Use Standard Drinks/Week Comments Not Currently 0 (1 standard drink = 0.6 oz pur e alcohol) PHQ-2 Answer Date Recorded Patient Health Questionnaire-2 Score 0 04/05/2025 PHQ-9 Answer Date Recorded Patient Health Questionnaire-9 Score 0 04/05/2025 [place] Depression Scale Answer Date Recorded [place] Depression Scale Total 4 05/13/2025 The thought of harming myself has occurred to me . Never 05/13/2025 CAGE ASSESSMENT Answer Date Recorded Cage unable to access Not on file 05/11/2025 Cage max number of drinks Not on file 2024 Cage Beverages a week Not on file 05/11/2025 Have you ever felt you should CUT down on your d rinking? 0 05/11/2025 Have you been ANNOYED by people criticizing your drinking? 0 05/11/2025 Have you felt GUILTY about your drinking? 0 05/11/2025 Have you had a drink first t sparkle in the morning (EYE-BUSINESS CONTINUITY DIRECTOR) to steady your nerves or to get rid of a hangover? 0 05/11/2025 CAGE Questionnaire Score 0 025 Comments Yes Sex and Gender Information Value Date Recorded Sex Assigned at Not on file Legal Sex Female 10:37 AM EDT Gender Identity Not on file Sexual Orientation Straight 03/29/2025 11 :10 AM EDT documented as of this encounter Last Filed Vital Signs Vital Sign Reading Time Taken Comments Blood Pressure 120/83 05/10/2025 3:49 PM EDT Pulse 106 05/10/2025 3:49 PM EDT Temperature - - Respiratory Rate 16 05/10/2025 3:49 PM EDT Oxygen Saturation 97% 05/10/2025 3:49 PM EDT Inhaled Oxygen Concentration - - Weight 66.7 kg (147 lb 0.8 oz) 05/10/2025 3:49 P M EDT Height 165.1 cm (5' 5 ) 05/10/2025 3:49 PM EDT Body Mass Index 24.47 05/10/2025 3:49 PM EDT documented in this encounter Functional Status * Calculated C-SSRS Risk Score (Lifetime/Recent) Answer Date of Assessment Author No Risk Indicated 05/11/2025 11:13 PM EDT Meena Zepeda RN * Question Answer Date of Assessment Author 1. Wish to be (Past 1 Month) No 025 11:13 PM EDT Meena Zepeda RN 2. Non-Specific Active Suici ryan Thoughts (Past 1 Month) No 05/11/2025 11:13 PM EDT Damion Zepeda RN 6. Suicidal Behavior (Lifetime) No 11:13 PM EDT Meena Zepeda RN documented as of this encounter Miscellaneous Notes * Progress Notes - Mayuri Husain APRN - 05/10/2025 3:30 PM EDT Routine Care: Third Trimester Meena Julian: [id number] Meena Julian is a at 38w2d who presents to clinic today for a routine OB appointment. Subjective Denies concerns today. +FM. Feeling well overall. Nahid Cooley contractions, nothing regular yet. Reviewed precautions today. No vaginal bleeding, leakage of fluid, decreased movements, or contractions. No Headache, visual change or right upper quadrant pain. Objective Physical Exam Weight: 66.7 kg (147 lb 0.8 oz) BP: 120/83 Heart Rate: 140 Fundal Height (cm): 38 cm Presentation: Vertex Assessment/Plan Assessment & Plan 38 weeks gestation of Routine Care at 38w2d Discussed Healthy practices. Late NAE from [place] Delivery planning: HUNTER, ? Epidural, formula, condoms for contraception Declined Tdap and RSV US: 10/04/2024 - TVUS in provider documentation (no report). Single IUP @ 7.2 weeks, normal yolk sac. [id number]. Measurements consistent with LMP. 01/02/2025 - Anatomy Scan; 20.0 weeks, [place], posterior placenta-Grade 1, KATHERINE WNL, MVP 3.97cm, [id number] (47%), 3VC with satisfactory insertion, FHR 153bpm, anatomy appears normal. 01/16/25 - Follow-up for cardiac 4 chamber view. CL 2.9cm, FHR 152bpm, MVP 2.60cm, cephalic, cardiacviews appear normal. 10/04/2024 Labs: PAP Negative STI Testing: Chlamydia and Gonorrheae Negative RTC 1 week. Mayuri Husain APRN Department of Obstetrics & Gynecology [facility] documented in this encounter Plan of Treatment Not on file documented as of this encounter Visit Diagnoses Diagnosis 38 weeks gestation of - Primary documented in this encounter Additional Health Concerns Assessment Noted Time PHQ-9 Depression Total Score: 0 04/05/20 9:46 AM EDT A Body Mass Index follow-up plan has been documented for the patient 05/13/2025 10:05 PM EDT documented as of this encounter Care Teams Polygraph Technician Relationship Specialty Start Date End Date Humera Meadows APRN [address] [place] [address] PCP - General 04/05/25 documented as of this encounter
--- OUTSIDE RECORDS SUMMARY | 2025-05-11 17:39 | XMS_ITS | Encounter Summary ---
Author Organization Healthcare Address [address] [place] [id number] Care Team Providers Care Rag Baler Name Role Phone Humera Meadows APRN Primary Care Provider [phone] Reason for Visit * Reason Comments vision changes Hypertension Abdominal Pain Decreased Movement * Auth/Cert (Routine) Specialty Diagnoses / Procedures Referred By Contac t Referred To Contact Diagnoses Pre-eclampsia in third trimester Fredi Duncan MD [address] [address] Phone: tel: fax: [facility] [address] [place] [address] Phone: tel: Referral ID Status Reason Start Date Expiration Date Visits Re quested Visits Authorized [id number] 1 1 Encounter Details Date Type Department Care Team (Late st Contact Info) Description 05/11/2025 6:39 PM EDT - 05/15/2025 1:42 PM EDT Hospital Encounter [facility] [address] [place] [address] Fredi Duncan MD [address] [address] Serena Hare MD [address] [address] Discharge Disposition: Home or Self Care Social History Tobacco Use Types Packs/Day Years Used Date Smoking Tobacco: Never Passive Smoke Exposure: Never Smokeless Tobacco: Never Alcohol Use Standard Drinks/Week Comments Not Currently 0 (1 standard drink = 0.6 oz pur e alcohol) PHQ-2 Answer Date Recorded Patient Health Questionnaire-2 Score 0 04/05/2025 PHQ-9 Answer Date Recorded Patient Health Questionnaire-9 Score 0 04/05/2025 [place] Depression Scale Answer Date Recorded [place] Depression Scale Total 0 05/22/2025 The thought of harming myself has occurred to me . Never 05/22/2025 CAGE ASSESSMENT Answer Date Recorded Cage unable [...] drink first t sparkle in the morning (E[employer]SI[employer]) to steady your nerves or to get rid of a hangover? 0 05/11/2025 CAGE Questionnaire Score 0 025 Comments No Sex and Gender Information Value Date Recorded Sex Assigned at Not on file Legal Sex Female 10:37 AM EDT Gender Identity Not on file Sexual Orientation Straight 03/29/2025 11 :10 AM EDT documented as of this encounter Last Filed Vital Signs Vital Sign Reading Time Taken Comments Blood Pressure 139/81 05/15/2025 11:37 AM EDT Pulse 82 05/15/2025 11:37 AM EDT Temperature 36.7 C (98 F) 05/15/2025 11:37 AM EDT Respiratory Rate 16 05/15/2025 7:48 AM EDT Oxygen Saturation 96% 05/15/2025 11:37 AM EDT Inhaled Oxygen Concentration - - Weight 66.7 kg (147 lb 0.8 oz) 05/12/2025 7:43 A M EDT Height 165.1 cm (5' 5 ) 05/12/2025 7:43 AM EDT Body Mass Index 24.47 05/12/2025 7:43 AM EDT documented in this encounter Functional [...] Zepeda RN documented as of this encounter Discharge Instructions * Discharge Instructions* Adina Holt - 05/14/2025 4:42 AM EDT Medication recommendations: You should be taking acetaminophen (Tylenol) 650mg every 4-hrs alternating with ibuprofen 600mg every 6hrs for pain control. Be sure to take a stool softener daily to help with constipation. Activity recommendations + restrictions: No eating restrictions. No lifting more than 10-lbs for 6-weeks. Nothing in the vagina for 6-weeks, including intercourse, tampons, douches. Showers only for the next 6-weeks. No tub baths or submersion in water, including pools, hot tubs, etc. It is normal to have intermittent vaginal bleeding or spotting for the next several weeks as your uterus heals + returns to a pre- state. Call your [employer] CRAFTSMAN or come to OB triage at [facility] if: You are having heavy vaginal requiring more than 2 maxipads in 1-hour You are having new onset of headaches, blurry vision, chest pain, shortness of air, significant legswelling. Fever (temperature >100.4 F) Severe abdominal pain, nausea/vomiting Difficulty with urination Follow-up recommendations: If you had any blood pressure problems during your or labor, you should have a follow-up with your [employer] CRAFTSMAN in 1-week to check your blood pressure. You should have a visit with your AWNING CRAFTSMAN scheduled in 6-weeks. documented in this encounter Medications at Time of Discharge acetaminophen (Tylenol) 325 MG tablet Take 2 tablets by mouth every 6 hours. 100 tablet 05/14/2025 docusate sodium 100 MG capsule Take 200 mg by mouth nightly. 60 capsule 05/14/2025 ibuprofen 600 MG tabletIndications:Mi ld to Moderate Pain Take 1 tablet by mouth every 6 hours. 100 tablet 05/14/2025 Multiple Vitamins-Minerals (HM MULTIVITAMIN ADULT GUMMY PO) Take by mouth. ondansetron ODT (Zofran-ODT) 4 MG disintegrating tablet Dissolve 1 tablet on the tongue every 8 hours as needed for nausea or vomiting (). 5 tablet 05/14/2025 documented as of this encounter Miscellaneous Notes * Addendum Note - Kandice Gallegos - 05/15/2025 1:42 PM EDTEncounter addended by: Kandice Gallegos on: 05/24/2025 12:46 PM Actions taken: Utilization Review saved, Utilization Review data saved * Addendum Note - Bk Forrester - 05/15/2025 1:42 PM EDTEncounter addended by: Bk Forrester on: 05/25/2025 10:24 AM Actions taken: Utilization Review data saved * Ranulfo Simmons RN - 05/15/2025 10:24 AM EDT Images from the original note were not included. [id number] Hemorrhoids Hemorrhoids are swollen and inflamed veins inside the rectum and near the anus. The rectum is the last several inches of the colon. The anus is the passage between the rectum and the outside of the body. Causes The veins can become swollen because of increased pressure in them. This is most often caused by: ? Long-term (chronic) constipation or diarrhea ? Straining when having a bowel movement ? Sitting too long on the toilet ? A low-fiber diet ? ? Supporting tissues of the anus and rectum get weaker with aging or during childbirth Symptoms ? Bleeding from the rectum. You may notice this after bowel movements. If you see blood from bowel movements, talk with your healthcare provider. They can determine if it's likely to be hemorrhoids, or if you need more assessment. ? Lump near the anus ? Itching around the anus ? Pain around the anus ? Mucus leaks from the anus There are different types of hemorrhoids. Depending on the type you have and the severity, you may be able to treat yourself at home. In some cases, certain procedures may be the best treatment choices. Your healthcare provider can tell you more about this if needed. Home care General care ? To get relief from pain or itching, try: o Medicines. Your healthcare provider may recommend stool softeners, suppositories, or laxatives tohelp manage constipation. Use these exactly as directed. o Sitz baths. A sitz bath involves sitting in a few inches of warm water. Be careful not to make the water so hot that you burn yourself--test it before sitting in it. Soak for about 10 to 15 minutesa few times a day. This may help relieve pain. o Topical products. Your healthcare provider may prescribe or recommend creams, ointments, or pads that can be applied to the hemorrhoid. Use these exactly as directed. Tips to help prevent hemorrhoids ? Eat more fiber. Fiber adds bulk to stool and absorbs water as it moves through your colon. This makes stool softer and easier to pass. o Increase the fiber in your diet with more fiber-rich foods. These include fresh fruit, vegetables, and whole grains. o Take a fiber supplement or bulking agent, if advised by your healthcare provider. These include products such as psyllium or methylcellulose. ? Drink more water. Your healthcare provider may direct you to drink plenty of water. This can helpkeep stool soft. ? Be more active. Frequent exercise aids digestion and helps prevent constipation. It may also helpmake bowel movements more regular. ? Don?t strain during bowel movements. This can make hemorrhoids more likely. Also, don?t sit on the toilet for long periods of time. Follow-up care Follow up with your healthcare provider as advised. If a culture or imaging tests were done, someone will let you know the results when they are ready. This may take a few days or longer. If your healthcare provider recommends a procedure for your hemorrhoids, these choices can be discussed. Choices may include surgery and outpatient office treatments. When to get medical advice Call your healthcare provider right away if any of these occur: ? Increased bleeding from the rectum ? Increased pain around the rectum or anus ? Black, tarry stools ? Weakness or dizziness Call 911 Call 911 if any of these occur: ? Trouble breathing or swallowing ? Fainting or loss of consciousness ? Unusually fast heart rate ? Vomiting blood ? Large amounts of blood in stool Last Reviewed Date: 2024 00:00:00 ?? [id number] [employer]. All rights reserved. This information is not intended as a substitute for professional medical care. Always follow your healthcare professional's instructions. * [facility] - Ranulfo Blue RN - 05/15/2025 10:24 AM EDT Images from the original note were not included. [id number] Having Sex After Childbirth As any new parent knows, a baby changes everything--and that includes sex, too. Read on to learn when it?s safe to have sex with your partner again , how sex may be different for you now, and how to plan ahead with control so you don?t have any surprise pregnancies. When is it OK to have sex again after childbirth? Most healthcare providers advise waiting at least 4 to 6 weeks after delivery before having sex again. This gives your body some time to heal from childbirth. It?s also important that you don?t have any vaginal discharge (called lochia) before resuming sex. If you have sex while you still have this discharge, you?re at risk of infection. During childbirth, you may have had a tear or a surgical cut (episiotomy) made in the area from your vagina to your anus (the perineum). You may have stitches there. If so, your healthcare provider will advise you to wait until the area is fully healed. Talk with your provider about when it?s OK for you to resume having sex. How is sex different after childbirth? The reality is that sex after having a baby is going to be a bit different than it was before. It?simportant to take it slow and recognize that your body has gone through some major changes. Here?s what you should know: Having sex may hurt There are a few reasons why you may feel some pain during sex after childbirth: ? Vaginal dryness. After giving , your vagina will likely feel dry. This is because your levels of the hormone estrogen are lower now than they were during . If you breastfeed, your estrogen levels will be even lower. This should change when your periods are back to normal and you have stopped . In the meantime, try using a lubricant during sex. But if you?re using latex condoms, only use water-based lubricants. Oil-based products can tear latex condoms. ? Sore perineum. The area between your vagina and your anus may still be sore if you had stitches there to fix a tear or episiotomy during delivery. This area should be fully healed before you have sex. Talk with your healthcare provider if you have any questions on how it?s healing. Pain medicine can help. If you?re , talk with your healthcare provider to see which [id number] pain medicines are safe to use. You may not be in the mood There are many reasons why you may not be as interested in having sex right now. Your body is stillrecovering, you?re sleep-deprived, and you?re overwhelmed caring for your baby. Your breasts may also feel a little sore if you?re nursing. Talk with your partner about how you?re feeling. Don?t justshut them out. That way, you can come up with some solutions together. For example, maybe try just cuddling and kissing at first. Talk with your healthcare provider if you feel you need more help. Deciding on control Ideally, you should talk with your healthcare provider about control options when you are still or just after giving . It?s best to be prepared and start using a control method right away. This can help you avoid a surprise . If you?re not using control and you have sex soon after having a baby, you can get again--even if your period hasn?t started again and you?re . Many women choose to wait at least 18 months before getting again. Your body needs enough time to fully recover from your last before another . And not having enough time between pregnancies can raise your risk of premature . There are many control methods available. Talk about your control options with your healthcare provider. If you?re , ask about which methods are best to use. There are a few options that are not advised when you start , as they may reduce your milk supply. ? IUD (intrauterine device). This is a small device that your healthcare provider places inside your uterus. There are 2 types: The hormonal IUD works by sending out a small amount of the hormone progestin into the uterus. It?s approved for 3 to 8 years of use. The copper IUD sends out a small amount of copper into the uterus. It?s approved for up to 10 years of use. ? control implant. This small neda is about the size of a matchstick. Your healthcare providerinserts it in your upper arm. It releases progestin into your body. It?s approved for up to 3 yearsof use. ? control shot (injection). This shot has a type of progestin and works by stopping ovulation. You can get your first shot right after delivery. After that, you?ll need a shot every 3 months. ? Combined hormonal methods. These options have both estrogen and progestin. They include control pills, the patch, and the vaginal ring. They work by stopping ovulation. ? Progestin-only pill. These pills have only progestin. They work by stopping sperm from fertilizing the egg. These pills must be taken at the same time each day. ? Barrier methods. These options work by stopping sperm from reaching the egg. They include the cervical cap, diaphragm, sponge, male and female condoms, and spermicide. These don?t affect your hormones in any way. ? Lactational amenorrhea method (EPSTEIN). This is a natural, short-term type of control that relies on exclusive and frequent . It?s based on the way the body naturally prevents ovulation when a woman breastfeeds. ? Sterilization. These procedures offer permanent control. It means closing off or removing the fallopian tubes or removing sperm from the semen by getting a vasectomy. Last Reviewed Date: 2023 00:00:00 ?? [id number] [employer]. All rights reserved. This information is not intended as a substitute for professional medical care. Always follow your healthcare professional's instructions. * Milad Hussein - Ranulfo Blue RN - 05/15/2025 10:23 AM EDT Images from the original note were not included. [id number] Understanding High Blood Pressure High blood pressure or hypertension is known as a silent killer. This is because it's a serious health problem, but often doesn?t cause symptoms. Many people don?t know they have it until it leads toother health problems. Normal blood pressure is less than 120/80 mmHg. If you?re above this level for several readings over time, you?ll be diagnosed with high blood pressure. Healthy changes can help you lower your blood pressure. But once you?re diagnosed, you'll need to manage it for the rest of your life. What is blood pressure? Your heart pumps blood into the blood vessels that carry it through your body. With each heartbeat the heart pushes blood through blood vessels called arteries. Blood pressure is a measure of how hard the blood pushes against the duvall of the arteries as it flows. How high blood pressure harms your health In a healthy artery, the blood moves smoothly and puts normal pressure on its duvall. High blood pressure means the blood is pushing too hard against artery duvall. This damages the duvall. The duvall form scar tissue as they heal. But the scar tissue makes the arteries stiff and weak. Afatty substance called plaque sticks to the scar tissue. This makes arteries narrower and harder. High blood pressure: ? Causes your heart to work harder to get blood around your body ? Raises your risk for heart attack, heart failure, and stroke ? Can lead to kidney disease and blindness Check blood pressure It's important to know your blood pressure numbers. A blood pressure reading is given as 2 numbers,such as 120/70. The top number is the pressure of blood against the artery duvall during a heartbeat. That's calledsystolic. The bottom number is the pressure of blood against artery duvall between heartbeats. That's called diastolic. Blood pressure may be: ? Normal: systolic lower than 120 and diastolic lower than 80 ? Elevated: Systolic of 120-129 and diastolic less than 80 ? High, Stage 1: Systolic of 130-139 or diastolic of 80-89 ? High, Stage 2: Systolic of 140 or higher or diastolic of 90 and higher For most people with high blood pressure, keeping readings under 130/80 mmHg may help prevent health problems. Talk with your healthcare provider. Find out what your blood pressure goals should be. Tell them what concerns you have about your readings. Control high blood pressure If your blood pressure is high, work with your healthcare provider to lower it. Lifestyle changes and possibly medicines may help. Below are changes you can make to help lower your blood pressure: ? Choose heart-healthy foods. Ask your provider about the Dietary Approaches to Stop Hypertension (DASH) eating plan. DASH limits sodium (salt). It includes a lot of fruits and vegetables, low-fat ornonfat dairy foods, whole grains, and other foods high in fiber and low in fat. This plan also includes more dietary potassium. This can help lower blood pressure. ? Cut sodium. Eating less sodium reduces fluid retention. This is when your body holds on to too much water. Having too much salt increases blood volume and blood pressure. The [place] [employer] says the ideal limit is no more than 1,500 mg of sodium a day, especially if you have high blood pressure. But because people in the [place] eat so much salt, they say cutting back to even 2,300 mg a day can help. Having only 1,000 mg of sodium a day can help your blood pressure and heart. ? Stay at a healthy weight. Being overweight makes you more likely to have high blood pressure. Losing excess weight helps lower blood pressure. ? Exercise regularly. Daily exercise helps your heart and blood vessels work better and stay healthier. It can help lower your blood pressure. ? Don't smoke. Smoking raises blood pressure. And it damages blood vessels. ? Limit alcohol. Drinking too much alcohol can raise blood pressure. Men should have no more than 2drinks a day. Women should have no more than 1 a day. A drink is equal to 1 beer, a small glass of wine, or a shot of liquor. ? Control stress. Stress makes your heart work harder and beat faster. Managing stress in a healthyway helps you control your blood pressure. Facts about high blood pressure ? High blood pressure is often a lifelong problem. But it can be controlled with lifestyle changes and medicine. ? Blood pressure medicines need to be taken every day. Stopping suddenly may cause a dangerous increase in pressure. ? Medicine is only one part of controlling high blood pressure. You also need to manage your weight, get regular exercise, and change your eating habits. ? Hypertension isn't the same as stress. Stress may be a factor in high blood pressure, but it?s only one factor. ? Feeling OK doesn't mean your blood pressure is under control. And feeling bad doesn?t mean it?s out of control. The only way to know for sure is to check your pressure regularly. Last Reviewed Date: 2023 00:00:00 ?? [id number] [employer]. All rights reserved. This information is not intended as a substitute for professional medical care. Always follow your healthcare professional's instructions. * [facility] - Ranulfo Blue RN - 05/15/2025 10:23 AM EDT Images from the original note were not included. [id number] Understanding Depression You?ve just had a baby. You expected to be excited and happy. Instead you find yourself crying for no reason. You may have trouble coping with your daily tasks. You feel sad, tired, and hopeless mostof the time. You may even feel ashamed or guilty. But what you?re going through is not your fault and you can feel better. Talk with your healthcare provider. They can help. What is depression? Depression is a mood disorder that affects the way you think and feel. The most common symptom is afeeling of deep sadness. You may also feel as if you just can?t cope with life. Other symptoms include: ? Gaining or losing a lot of weight ? Sleeping too much or too little ? Feeling tired all the time ? Feeling restless ? Crying a lot ? Having too little or too much appetite ? Withdrawing from friends and family ? Having headaches, aches and pains, or stomach problems that won't go away ? Feeling anger or rage ? Fears of harming your baby ? Lack of interest in your baby ? Feeling worthless or guilty ? No longer finding pleasure in things you used to ? Having trouble thinking clearly or making decisions ? Thinking about or suicide Depression after childbirth You may be weepy and tired right after giving . These feelings are normal. They?re sometimes called the baby blues. These blues go away after 1 to 2 weeks. But (meaning after ) depression lasts much longer and is more severe than the baby blues. It can make you feel sad and hopeless. You may also fear that your baby will be harmed and worry about being a bad mother. Your partner can also have depression. It can show up over the year after your child's . Symptoms are similar to those of the parent. What causes depression? The exact cause of depression is unknown. Changes in brain chemistry or structure are believed to play a big role in depression. It may be due to changes in your hormones during and after childbirth. You may also be tired from caring for your baby and adjusting to being a mother. All these factors may make you feel depressed. In some cases, your genes may also play a role. Depression can be treated There are many ways to treat depression. Talking to your healthcare provider is the first step toward feeling better. When to call your healthcare provider Call your healthcare provider if you: ? Cry for no clear reason ? Have trouble sleeping, eating, and making choices ? Question if you can handle caring for a baby ? Have intense feelings of sadness, anxiety, or despair that prevent you from being able to do yourdaily tasks To learn more ? National Evarts of Mental Health at www.nimh.nih.gov or 088-437-3581 ? National Ronks on Mental Illness at www.rico.org or 424-611-0934 ? Mental Health Cynthia at www.nmha.org or 163-950-7849 ? 988 Suicide & Crisis Lifeline at www.Neptune8lifeline.org or 988 Last Reviewed Date: 2025 00:00:00 ?? 2140-0896 [employer]. All rights reserved. This information is not intended as a substitute for professional medical care. Always follow your healthcare professional's instructions. * Milad Jovita - Mirza, Ranulfo Massey, RN - 05/15/2025 10:23 AM EDT Images from the original note were not included. [id number] Understanding Blues Having a baby is a happy, exciting time in a person's life. But it can also be tiring and overwhelming. Many new parents are surprised to find they feel sad or beck when adjusting to life with a . But these feelings are very common. In most cases, they only last for 1 or 2 weeks after you give . This is called the ?baby blues? or blues. What are the blues? You?ve just had a baby, and you?re overjoyed. But like many new parents, you may also feel sad, exhausted, anxious, and beck. You may cry a lot. If you have these and other mild symptoms of depression, it?s likely you have blues. And you?re not alone. About 4 in [address] soon after giving . blues is a condition that comes and then goes away quickly. Symptoms often occur 1 or 2 days after giving . They may feel very intense for several days. But they go away on their own in about 2 weeks. If you still feel this way after more than 2 weeks, or if at any time you start to feel worse, callyour healthcare provider. You could have a more serious mood disorder called depression.This is treated with medicine and talk therapy (counseling or psychotherapy). What causes the blues? Experts don?t know the exact cause of blues. It?s likely linked to hormone level changesthat occur during and . During that time, your levels of estrogen and progesterone drop severely. This can trigger feelings of depression. But other things may contribute as well. Having a baby is a major life change. And it can be a verystressful time. Caring for a new baby is emotionally and physically draining. You may be tired fromlack of sleep. You may feel overwhelmed or lonely, or have trouble getting into a routine with yourbaby. All of these things can affect how you cope during this busy and emotional time. Symptoms of the blues Symptoms can include: ? Sadness ? Being grouchy ? Crying ? Mood changes ? Trouble sleeping ? Lack of energy (fatigue) ? Not able to focus ? Anxiety Diagnosing the blues There is no standard diagnosis for this condition. If you have 3 or 4 of the symptoms listed above after giving , you likely have blues. Call your healthcare provider right away if your symptoms last for more than 2 weeks, or if your symptoms start to get worse. Your provider will evaluate you to make sure you don?t have depression. Managing the blues The blues generally go away without treatment. The best thing you can do to reduce your symptoms is to take care of yourself. To get the help and support you need, it?s important to: ? Be open about your feelings. Talk with your partner or other people you feel safe with about how you are feeling. Don?t keep things to yourself. ? Get enough sleep. It may not be possible to sleep through the night right now. But rest whenever your baby naps. ? Eat healthy foods. Eating a healthy diet can help you feel better, and help keep your mood more balanced. ? Ask for and accept help. Let friends and family help out with meals, shopping, laundry, or watching other children or the baby while you nap. ? Get outside and go for a walk. ? Take time for yourself. ? Find other new parents to connect with. Check online to find a group for new parents in your area. Or ask your healthcare provider for suggestions. Is it the baby blues or depression? It?s normal to feel weepy, overwhelmed, and beck after having a baby. But if your symptoms last longer than 2 weeks or they get worse, call your healthcare provider. They will evaluate you to see ifyou have a more serious condition called depression. It?s important to get treated for that right away. Last Reviewed Date: 2025 00:00:00 ?? [id number] [employer]. All rights reserved. This information is not intended as a substitute for professional medical care. Always follow your healthcare professional's instructions. * Milad Hussein - Ranulfo Blue RN - 05/15/2025 10:23 AM EDT Images from the original note were not included. 90136 Understanding Preeclampsia Preeclampsia is high blood pressure (hypertension) that happens during . It often shows uparound the 20th week of . It often goes back to normal by the 12th week after you give . It can lead to serious health risks for you and your baby. During your , your healthcare provider will watch your blood pressure. Symptoms A common symptom of preeclampsia is high blood pressure. Other symptoms may include: ? Rapid weight gain ? Protein in your urine ? Headache ? Belly (abdominal) pain on your right side ? Vision problems. These include flashes or spots. ? Swelling (edema) in your face or hands. This also often happens near the end of normal pregnancies, even without preeclampsia. If you were diagnosed with preeclampsia and you have any of the above symptoms that get worse, tellyour provider (nurse or doctor) right away. Tests you may have Your healthcare provider will want to check your blood pressure throughout your . If your blood pressure is high, you may have the following tests: ? Urine tests to look for protein ? Blood tests to confirm preeclampsia ? monitoring to make sure that your baby is healthy Treating preeclampsia You may need to take a daily low dose of aspirin if you are at risk for preeclampsia. Preeclampsia almost always ends soon after you give . Until then, your healthcare provider can help manage your condition. If your symptoms are mild, you may need activity limits at home, including bed rest and no heavy lifting. If your symptoms are severe, you will stay in the hospital. Hospital treatment includes: ? Activity limits to help control blood pressure. This means no heavy lifting and 8 hours per day lying down with the feet up. ? Magnesium IV (intravenous) drip during labor to prevent seizures ? Induced labor or surgical delivery by section. Delivery is considered the cure for preeclampsia. Who is at risk? No one knows what causes preeclampsia. Preeclampsia can happen in any woman. But it is more common in first-time pregnancies. Things that increase the risk include: ? Previous pregnancies. You are at risk if you had preeclampsia, intrauterine growth retardation (IUGR), , placental abruption, or in a past . ? Health history of mother. You are at risk if you have diabetes, high blood pressure, obesity, kidney disease, autoimmune disease such as lupus, or a family history of preeclampsia. ? Current . You are at risk if this is your first , or if you have multiple fetuses, are younger than age 18 or older than 40, or used in vitro fertilization. ? Race. You are at risk if you are black. Dangers of preeclampsia If not treated, preeclampsia can cause problems for you and your baby. The placenta is the organ that nourishes your baby. It may tear away from the uterine wall. This can put the baby at risk for health problems ( distress) and premature . Preeclampsia can also cause these health problems: ? Kidney failure or other organ damage ? Seizures ? Stroke Once you give In most cases, preeclampsia goes away on its own soon after you give . This is often by the 12th week after you give deliver. Within days of delivery, your blood pressure, swelling, and other symptoms should get better. For some women, problems from preeclampsia can continue after delivery. preeclampsia that develops within the first 48 hours after delivery is rare. Another type of preeclampsia that develops more than 48 hours after delivery is called late-onset preeclampsia. It is also rare. Contact your healthcare provider right away if you have symptoms of preeclampsia after you deliver. Last Reviewed Date: 2019 00:00:00 ?? [id number] [employer]. All rights reserved. This information is not intended as a substitute for professional medical care. Always follow your healthcare professional's instructions. This information has been modified by your health care provider with permission from the publisher. * [facility] - Ranulfo Blue RN - 05/15/2025 10:23 AM EDT Images from the original note were not included. When to Call the Doctor: Red Flags - Video Watch this video to learn when you should call the doctor for any red flag symptoms you may experience after giving . To view the video go to this web address: [email or web address] Or, scan this QR code with your smart phone ?? [facility] * Cheomario alberto Blue, Ranulfo Massey RN - 05/15/2025 10:22 AM EDT Images from the original note were not included. 32053 Incision Care After Vaginal After your baby?s , you may have needed stitches in the skin near your vagina. The stitches might have closed a cut that enlarged the opening of your vagina (episiotomy). Or you may have needed stitches to repair torn skin. Either way, your stitches should dissolve in weeks. Until then, use this handout as a guide to help ease any pain and aid healing. Keep clean You can reduce your risk of infection by keeping the area around the stitches clean. These hints can help: ? Gently wipe or pat dry from front to back after you urinate or have a bowel movement. ? After wiping, spray warm water on the stitches. Pat dry. If you are too sore, just spray the areaafter urination and then pat dry without wiping. ? Don't use soap or any solution except water unless instructed by your healthcare provider. ? Change sanitary pads at least every 2 to 4 hours. Eat to stay regular Having bowel movements is easier if you?re not constipated. Follow these tips: ? Eat fresh fruit and vegetables, whole grains, and bran cereals. ? Drink plenty of water. ? Don?t strain to have a bowel movement. ? Ask your healthcare provider about using a stool softener. Reduce your discomfort Here are some tips to make you more comfortable: ? Sit in a warm bath (sitz bath). ? Place cold packs or heat packs on your stitches. Keep a thin towel between the pack and your skin. ? Sit on a firm seat so the stitches pull less. ? Use medicated spray as ordered by your healthcare provider. Call your healthcare provider Call your healthcare provider if you have: ? Heavy or gushing bleeding from the vagina ? Discharge that has a bad odor ? Severe pain in the belly or increased pain near your stitches ? If your episiotomy or tear opens ? Fever or chills ? No bowel movement within 1 week after the of your baby ? Pain or urgency with urination, or inability to urinate Last Reviewed Date: 2025 00:00:00 ?? [id number] [employer]. All rights reserved. This information is not intended as a substitute for professional medical care. Always follow your healthcare professional's instructions. * Milad Hussein - Ranulfo Blue RN - 05/15/2025 10:22 AM EDT Images from the original note were not included. 772 Always Hold Your Baby?s Bottle Bottle feeding can be a warm, loving time between you and your baby. Bottle propping is when someone uses an object like a pillow to prop up a baby?s bottle. You should never do this. Always hold your baby and the bottle while your baby feeds. This is an important step for your baby to learn good eating habits. Why should I NEVER prop my baby?s bottle? You miss chances to lopez. Feeding your baby with a bottle is one of the best ways to start a close relationship with your baby. You so not have those warm and loving times with bottle propping. Holding your baby during feedings builds trust. Bottle propping makes your child more likely to choke. When a bottle is propped, liquid will keep coming out until it is empty. If your baby falls asleep while feeding, your baby may breathe in the liquid instead of swallowing it. This happens because the openings to the food and air tubes are so close together. Bottle propping may cause ear infections. There is a little opening in the back of your baby?s throat. It is called a Eustachian tube. When your baby lays flat and a bottle is propped, liquid can pool in the back of the throat and spill over into this tube. This can lead to ear infections. Ear infections that last a long time can lead to permanent hearing loss. Bottle propping could lead to tooth decay. Propping your baby?s bottle causes milk to pool in the mouth. When normal germs combine with food or drinks, it can form an acid that will lead to tooth decay. Baby teeth act as a guide for permanent teeth that come in later so it is very important that these teeth not fall out early. What are some tips to help with bottle feeding? ? Cradle your baby in your arm, holding the head slightly higher than the chest. Babies will respond to touch, eye contact, and speech. ? Tip the bottle so the nipple fills with milk and your baby is not sucking in air. ? Make sure the nipple hole is the right size. If it is too big, your baby may gag or gulp too fast. If it is too small, it may frustrate your baby. ? Try different nipple shapes to see which your baby prefers.Use a pacifier at bedtime instead of abottle. * Milad OnIR - Ranulfo Blue RN - 05/15/2025 10:22 AM EDT Images from the original note were not included. 31411 How to Bottle-Feed Newborns need nutrition and plenty of loving. These are both things you can supply while bottle-feeding. Both breastmilk and formula can be given to your baby in a bottle. Be sure to place the nipple on the tongue and well into your baby's mouth. Safety tip You don't need to heat breastmilk or formula before offering it to your baby. Never use a microwaveif you want to heat breastmilk or formula. A microwave heats unevenly. Hot milk might burn your baby's mouth. Instead, warm the bottle by putting it in a bowl of warm (not hot) water. Using hot waterto heat formula or breastmilk can burn your baby's mouth or throat. Too much heat can also destroy parts of breastmilk that are healthy for your baby. Test the temperature of the milk by dripping a few drops on your wrist. Make sure it's not hot before giving it to your baby. Bottle care No matter if you use breastmilk or formula, the bottles, nipples, and tools you use to get the formula ready must be clean. Below are suggestions for bottle care. But talk with your healthcare provider about how to care for bottles: ? Wash your hands with clean, running water before you mix formula, fill a bottle, or offer a bottle. Do this every time. Use an alcohol-based hand ware cleaner if soap and water aren't available. ? Clean glass bottles and nipples in the wad impregnator. Use the hot water setting with a hot drying cycle. Or wash the bottles and nipples with hot, soapy water. Be sure to rinse both completely. If youdon't have a wad impregnator, sanitize them by boiling them for 5 minutes. Cool them before using. ? Make sure all bottle parts are completely dry before putting them together to store. This will prevent mold. ? You will still need to make sure the bottles and nipples are clean if you use plastic bottles with disposable liners. ? Store clean, unused bottles with the cap on. This will keep the nipples clean. Facts on formula Most formulas are made from cow's milk. All formula used should include iron. Make sure to look for one with iron. Discuss your choice of formula with your baby's healthcare provider. This is to make sure it's the best fit for your baby. Hlhlc-sb-lkwl formula Swmry-de-ioht formula is the easiest to use, but it also costs the most. Brand names cost more thanstore-brand formulas because these companies spend more money on advertising. ? Pour the desired amount of arhji-wr-ujsp formula into the baby's clean bottle. Ask your healthcare provider how much formula to offer your baby at each feeding. ? Use opened, prepared formula quickly or store it safely. It can spoil if left out at room temperature. It must be used right away. Or, if unused, store it in the refrigerator. o If you don't refrigerate the prepared formula right away, use it within 2 hours of preparation and within 1 hour from when feeding begins. If your baby doesn't finish the bottle within 1 hour, throw away the unfinished formula. o If you don't start to use the prepared formula within 2 hours, put the bottle in the fridge rightaway. It can only be stored for 24 hours. After that, it must be thrown out. ? You can fill bottles with the formula up to 24 hours ahead of time. You must keep them refrigerated until you use them. Concentrated liquid formulas Concentrated liquid formulas need to be mixed with water before using. Follow the directions on thecan closely. Using too much or too little water may harm your baby. Follow these tips: ? Use fluoridated tap water that has been boiled and then cooled. Or use distilled bottled water. ? Pour the whole can of concentrated liquid formula into a clean pitcher. ? Fill the can with water to the top and add it to the pitcher. Mix well. ? Pour the desired amount of formula into your baby's clean bottle. ? Store the pitcher of mixed formula in the refrigerator. Keep it for only 24 hours. If not refrigerated, the formula is only safe at room temperature for 1 hour. After that, it must be thrown out. ? Ask your healthcare provider how much formula to offer your baby at each feeding. Concentrated powder formulas Powdered formulas must be mixed with water before using. Liquid formulas have no germs (sterile). But powdered formula can get germs (bacteria) in it when you make it or when you store it. Follow these tips to protect your baby from getting sick from these germs: ? Concentrated powder formulas need to be mixed with clean water from a safe source. This can be distilled bottled water or fluoridated boiled tap water. If you're not sure if your tap water is safe to use for preparing infant formula, call your local health or water department. ? Wash and dry the top of the formula can before you open it. Make sure the can special delivery clerk, spoons, scoops, and other tools you use to make the formula are clean. ? Don?t mix the formula with water until right before you are going to feed your baby. ? Add the right amount of water to the bottle. Then add the right amount of powdered formula. It?s important to add the water to the first. Adding the formula first may make it too strong and cause constipation. ? Mix the water and formula well. ? If you don?t plan to use the prepared formula right away, put it in the refrigerator and use it within 24 hours. ? It's important to keep the dry powder in the formula can clean to prevent bacteria from growing. ? Ask your healthcare provider how much formula to offer your baby at each feeding. Holding baby and bottle To hold your baby and feed them with a bottle, follow these tips: ? Cradle your baby in your arm, holding your baby?s head slightly higher than their bottom. ? Using the correct position can lower the chance that your baby will choke. ? Stroke your baby?s lower lip. When your baby?s mouth opens, place the nipple on the tongue and feel them pull the nipple into the mouth. ? Tip the bottle slightly so that the nipple fills with milk. Your baby should then suckle to remove the milk from the nipple. If your baby is choking or having trouble keeping up with the flow, tilt the milk out of the nipple. This will give your baby a chance to breathe and catch up to pace the bottle- feeding. It's important that the feeding happens at the baby's pace, and not too fast. ? For safety's sake, never prop the bottle. Your baby can choke if you leave them alone with a propped bottle. Propping bottles can also raise your baby's risk for ear infections and tooth decay. ? Feeding your can be a time of bonding and building trust. Hold your baby close to your body, make eye contact, and talk to your baby. These are important ways to help them develop. ? Don't let your baby fall asleep while sucking on a bottle. This can lead to tooth decay when theyare older. If your baby seems hungry but isn't eating well, you can try a different-shaped nipple. You might also check the nipple opening. Some babies prefer a faster flow of milk. They can get frustrated whenthe flow is too slow. If your baby is gagging and choking, you might need a nipple with a smaller hole. The smaller hole slows the flow. [place] with bottle nipples. Let your baby choose which bottle nipple is best for them. Burping your baby It's easy for babies to swallow air while bottle-feeding. Burping helps your baby get rid of that air. Tips on burping your baby include: ? Burp your baby when they act restless, try to turn away from the nipple, or slow their sucking. This is usually after eating every 1/2 to 1 ounce of formula and when they are finished feeding. ? Your baby can be burped sitting up while you hold the baby?s jaw, lying face down across your lap, or upright with their belly against your shoulder. Don't overfeed Follow these tips for not overfeeding your baby: ? Don't overfeed or force your baby to finish the bottle if they show signs of being full. This canlead to your baby eating more than needed and can cause fussiness. Burp your baby several times during and after feeding. This will allow the passage of gas. This will also space out the feeding and allow time to digest. ? Keep your baby in an upright position during feeding and for 20 to 30 minutes after each feeding. ? Wait at least 2 to 3 hours between feedings so your baby's stomach can empty. Or give smaller amounts more often. Feeding cues ? Don't wait for your baby to cry before feeding. Crying is too late of a sign that your baby is ready to eat. ? Your baby is ready to feed when your baby flutters their eyes and moves their hands to the mouth as they wake up. ? Respect cues that your baby is finished. These include letting go of the bottle, turning the headaway, looking sleepy, or stopping feeding. Offer a pacifier if your baby acts like they want to suckle after finishing the amount of formula your healthcare provider advised. Babies enjoy sucking. But bottle-fed babies may feed so fast that they don?t get enough suckling time. Last Reviewed Date: 2024 00:00:00 ?? [id number] [employer]. All rights reserved. This information is not intended as a substitute for professional medical care. Always follow your healthcare professional's instructions. * Cheomario alberto GageJUANPABLO - Ranulfo Blue RN - 05/15/2025 10:22 AM EDT Images from the original note were not included. 22400 How to Breastfeed Babies use their lips, gums, and tongue to take milk from the breast (suckle). Your baby is born with an instinct for suckling. But it takes time for you and your baby to learn how to breastfeed. There are steps you can take to support your baby?s natural instincts. Zwan-cm-wlfc If possible, hold your baby bare against your skin (zhll-jf-vlsr) just after giving and for afew hours after. You can also continue to do this in the first few weeks after . How often should I feed my baby? Nurse your 8 to 12 times every 24 hours. Feed your baby whenever they show signs of hunger.When your baby is hungry, they will appear more awake and might root. Rooting means turning their head toward you when you stroke your baby?s cheek. Your baby might also make a sucking sound or suck on their hand. Crying is a late sign of hunger. If your baby is crying, it may be hard for them to calm down to breastfeed. Infants will often eat at irregular times. But feedings will usually become more regular over time. Sometimes your baby might eat several times in a row (cluster feeding) and then take a break. If your baby seems sleepy or too fussy to nurse, undress them and place your baby bare against yourskin. Don't keep your baby swaddled tightly. This may keep them too sleepy to feed. Change which breast you offer first with each feeding. For example, if you started nursing on the right side with the last feeding, offer the left side first with this feeding. Always offer the otherbreast after your baby stops nursing on the first side. Ask your baby's healthcare provider about waking the baby for feeding. You may need to wake your baby and offer to nurse if it has been 4 hours since your baby's last feeding. Offering your breast Hold your breast with your thumb on top and fingers underneath in a loose core layer machine operator. Gently stroke your nipple on your baby?s lower lip. When you see your baby open their mouth wide, quickly bring the baby close to you aiming the nipple toward the roof of the baby's mouth. Remember to bring the baby to your breast, not the breast to your baby . Latching on The way your baby connects with the breast is called the latch. When your baby attaches, you shouldsee more of the darker skin around the nipple (areola) above the baby's upper lip than below the lower lip. The front of your baby's entire body should be touching you. Your baby's nose and chin should be against the breast. Your baby's cheeks should be full and not sinking inward. You should be able to see your baby's lips. They should be slightly flared outward. As your baby suckles, their jaw should open wide. It should not be munching as if chewing. Listen for swallowing. It should not hurt when your baby latches on and suckles. If it does, try releasing the latch and starting over. Remember don't hesitate to reach out to a Licensed Land Surveyor or to your baby's allied health teacher if you have any questions about feeding your baby. Releasing the latch Let your baby nurse until satisfied. In most cases, when your baby is finished nursing, they will let go on their own. This tells you that your baby is done feeding on that breast. You may need to release the latch sooner if you feel pain or for some other reason. To do this, slip your finger into the corner of your baby's mouth. You should feel the suction break. Only when the seal is broken, move your baby off your breast. Don't take the baby off your breast until you've felt a decrease in suction. Burping your baby Breastfed babies don't need to burp as much as bottle-fed babies. Bottles flow faster, and babies tend to swallow more air. Try to burp your baby after each breast: ? Hold the baby at your upper chest or slightly over your shoulder. Gently rub or pat the baby?s back. ? Or hold the baby sitting up on your lap. Support your baby's head and chest in front and in back.Slowly rock your baby back and forth. ? Don?t worry if your baby doesn't burp. They may not need to. Last Reviewed Date: 2025 00:00:00 ?? [id number] [employer]. All rights reserved. This information is not intended as a substitute for professional medical care. Always follow your healthcare professional's instructions. * Milad AlmonteJUANPABLO - Ranulfo Blue RN - 05/15/2025 10:21 AM EDT Images from the original note were not included. [id number] Gestational Hypertension What is gestational hypertension? Gestational hypertension is high blood pressure in . It's different from chronic hypertension, which happens when a person has high blood pressure before they get . It?s also different from preeclampsia and eclampsia. These are other blood pressure problems in . Gestational hypertension often starts in the second half of . It normally goes away after your baby is born. What causes gestational hypertension? Doctors don't know what causes this condition. Things that may increase your risk include: ? Having high blood pressure before or with a past . ? Having kidney disease. ? Having diabetes. ? Being age 35 or older. ? Being with multiples, such as twins or triplets. ? Being . What are the symptoms of gestational hypertension? Symptoms can occur a bit differently in each . The main symptom is high blood pressure in the second half of . High blood pressure in can lead to other serious issues. These can include preeclampsia. Make sure to watch for signs of high blood pressure. Other symptoms include: ? A headache that doesn?t go away. ? Edema (swelling). ? Sudden weight gain. ? Vision changes, such as blurred or double vision. ? Nausea or vomiting. ? Pain in the upper right side of your belly, or pain around your stomach. ? Making small amounts of urine. Some people don't have any symptoms. How is gestational hypertension diagnosed? If your blood pressure increases, your doctor may diagnose you with this condition. You may also have tests to check for this issue, such as: ? Blood pressure readings. ? Urine testing to check for protein. This is a sign that your kidneys aren?t working well. ? Checking for swelling. ? Checking your weight more often. ? Liver and kidney function tests. ? Blood clotting tests. How is gestational hypertension treated? Blood pressure monitoring Your doctor may check your blood pressure more often. Tell your doctor if you have any new symptoms. monitoring Your doctor may do tests to check the health of your baby. These tests may include: ? movement counting. You?ll keep track of your baby?s kicks and movements. A change in the number of kicks or how often your baby kicks may mean that your baby is under stress. ? Nonstress testing. This test measures your baby?s heart rate in response to its movements. ? Biophysical profile. This test combines a nonstress test with an ultrasound to watch your baby. ? Doppler flow studies. This test is a type of ultrasound that uses sound waves to measure the flowof your baby?s blood through a blood vessel. Lab testing Your doctor may test your urine and blood at every checkup. This testing will tell if yourcondition is getting worse. Medicine Your doctor may give you corticosteroids. These medicines can help your baby?s lungs mature. You?llget them if it looks like your baby is going to be born early. What are possible complications of gestational hypertension? High blood pressure can affect your blood vessels. It may decrease blood flow in your liver, kidneys, brain, uterus, and placenta. This condition can get worse. It can lead to preeclampsia and eclampsia. These are serious blood pressure problems. They can cause: ? Placental abruption. This means that the placenta pulls away from the uterus too early. ? Poor growth. ? Stillbirth. ? Seizures. ? of the mother and baby. Because of these risks, your doctor may decide that you need to have your baby early. This may happen before 37 weeks of . You have a higher chance of having high blood pressure in the future. This can happen even if your blood pressure goes back to normal after childbirth. Can gestational hypertension be prevented? Having this issue diagnosed and treated early may help reduce your risk for complications. That's why it?s important to go to your checkups. Doing so may keep your condition from getting worse. When should I call my doctor? Contact your doctor right away if you have signs of high blood pressure. Symptoms can include a headache that doesn?t go away, blurred or double vision, swelling, and making less urine than normal. Arboleda points about gestational hypertension ? Gestational hypertension is a form of high blood pressure in . ? This condition can affect the health of both you and your baby. It depends on how bad the issue is. ? Call your doctor right away if you have signs of high blood pressure. Symptoms can include a headache that doesn?t go away, blurred or double vision, swelling, and making less urine than normal. ? The goal of treatment is to prevent the condition from getting worse and causing other problems. Next steps Here are some tips to help you get the most from a visit to your doctor: ? Know the reason for your visit and what you want to happen. ? Before your visit, write down questions you want answered. ? Bring someone with you to help you ask questions and remember what your doctor tells you. ? At the visit, write down the name of a new diagnosis and any new medicines, treatments, or tests.Also write down any new instructions your doctor gives you. ? Know why a new medicine or treatment is prescribed and how it will help you. Also know what the side effects are. ? Ask if your condition can be treated in other ways. ? Know why a test or procedure is recommended and what the results could mean. ? Know what to expect if you don't take the medicine or have the test or procedure. ? If you have a follow-up appointment, write down the date, time, and purpose for that visit. ? Know how you can contact your doctor if you have questions, especially after office hours or on weekends. Last Reviewed Date: 2025 00:00:00 ?? [id number] [employer]. All rights reserved. This information is not intended as a substitute for professional medical care. Always follow your healthcare professional's instructions. * iMlad Hussein - Ranulfo Blue RN - 05/15/2025 10:21 AM EDT Images from the original note were not included. [id number] After Giving : How to Feel Healthy Helping yourself feel fit is one of the best things you can do for your baby. A little exercise will tone your muscles. You?ll feel stronger and more energized. You?ll also feel more awake and aware.Don?t worry about your weight right now. Your goal is to feel healthy. Continue pelvic floor muscle exercises You may have been told to do pelvic floor muscle exercises (Kegels) during . These exercises strengthen the muscles that are strained by carrying and delivering the baby. You can start doingthem again as soon as you feel ready. Why not start today? Squeeze your pelvic floor muscles (the ones that control your urine stream) for at least 5 seconds. Relax, then squeeze again. Work your wayup to 50 or 100 Kegels a day. Exercise often Exercise helps you get in shape. It also makes your muscles stronger, so it's easier to lift the baby. As an added benefit, exercise gives you a sense that you?re doing something good for yourself. Take your baby for a short walk or spend 10 minutes stretching. If you were active during , you can probably begin light exercise as soon as you feel ready. But be sure to check with your healthcare provider before you begin, especially if you had a section. Stay off the scale For the first month, think about regaining energy and feeling good, not about losing weight. Losingweight too soon can make you feel more tired. Instead, focus on caring for your baby and eating balanced meals. You may lose some weight without even trying, especially if you?re . Once your energy level is back to normal, you can begin to lose weight. A gradual weight loss of 4 or 5 pounds a month is safest. Dress comfortable You?ll want to be comfortable during the first days after delivery. Wear a robe, pajamas, or sweats--whatever feels best. Soon you may want to look more like your pre self. Do your hair and wear makeup, if you normally do. A loose-fitting dress may feel good. But don?t reach for your jeans.It?s likely to be a month or more before you can wear them. If leaking breasts are a problem, put pads inside your bra and dress in layers. If you?re , shirts that open in front and pullover tops are good choices. A scarf or shawl can be used as a drape if you breastfeed around other people. When to call your healthcare provider Remember to schedule your visit. You should have contact with your provider within 3 weeks of delivery. You may need to see your provider sooner if you had a section or have high blood pressure. You should have a complete visit with your provider within 12 weeks of delivery. Also call your provider if you have: ? Heavy bleeding ? Fever ? Redness or persistent lump in your breasts ? Problems urinating or haven't had a bowel movement after 1 week ? Severe pain ? Depression that is new or getting worse Last Reviewed Date: 2024 00:00:00 ?? [id number] [employer]. All rights reserved. This information is not intended as a substitute for professional medical care. Always follow your healthcare professional's instructions. * Milad Hussein - Ranulfo Blue RN - 05/15/2025 10:21 AM EDT Images from the original note were not included. 248 Important OB Phone Numbers If you have any questions or concerns or think you may need to be seen by a doctor, call the officein which you have been seen during normal business hours, Thursday through Thursday. If you have a question after 4:30 p.m., on a weekend, or holiday that cannot wait until the following day, you may call the Birthing Center (Triage) and ask to speak with a nurse. The Birthing Center (Triage) [facility] [address] [place] [address] [facility] Medical Office Building [address], [address] [place] [address] [facility] [address] [place] [address] Family Practice [address], Third Floor [address] [place], [place] [id number] [facility] [address] [place], [place] [id number] [facility]etrics [facility] Gyne[facility] [place] [address] [place] [address] [facility] [place] [address] [facility]. [place], [place] [id number] * [facility] Ranulfo Blue RN - 05/15/2025 10:20 AM EDT Images from the original note were not included. 12005 After Delivery: When to Call the Healthcare Provider Health problems sometimes arise with you or your baby after delivery. Call your baby's healthcare provider or your healthcare provider if you see any of the signs below. Watch your baby for these signs Call your baby?s healthcare provider if your baby: ? Has a rectal or forehead (temporal artery) temperature of 100.4??F (38??C) or higher, or as directed by the provider ? Has fewer than 6 wet diapers a day (Hint: Disposable diapers may feel heavy or hard after being soaked.) ? Skin or whites of the eyes appear yellow ? Cries for a long time, or if it sounds as if the cries are caused by pain ? Has diarrhea ? Refuses 2 feedings in a row ? Is inactive or listless ? Is vomiting ? Has blood in the stool or vomit ? Has a rash ? Has ear drainage ? Has trouble breathing ? Has a seizure ? Will not wake up Trust your instincts. If you are concerned about your baby, call your baby's healthcare provider. Watch your own health for these signs Call your own healthcare provider if you have: ? Bleeding that needs a new sanitary pad after an hour (greater than a period), or blood clots the size of an egg or bigger ? Belly pain, extreme tiredness, and/or rapid heartbeat. These could be signs that you are bleedinginside your belly (abdomen) that can?t be seen. ? Signs your blood pressure may be high or that you may have preeclampsia such as: o a headache that doesn?t go away after taking Tylenol o vision problems such as flashes or spots o rapid weight gain o belly (abdominal pain) on your right side o swelling (edema) in your face or hands Preeclampsia can develop after delivery. preeclampsia that develops within the first 48 hours after delivery is rare. Another type of preeclampsia develops more than 48 hours after delivery. It is called late-onset preeclampsia. It is also rare. Contact your healthcare provider right away if you have symptoms of preeclampsia after you deliver. ? Burning or pain in your breasts ? Red streaks or hard lumpy areas in your breasts ? Problems with ? A fever of 100.4??F (38??C) or higher, or as directed by your healthcare provider ? Extreme tiredness or body aches, as if you have the flu ? Feelings of extreme sadness or anxiety, or a feeling that you don?t want to be with your baby ? Belly pain that isn?t relieved with medicine ? Vaginal discharge that has a bad odor ? If you had a section, call for concerns about your incision site such as pain, drainage,or bleeding from your incision. Your Follow-up Appointments Make sure you have a follow-up appointment scheduled as follows: ? If you were diagnosed with preeclampsia or had problems with your blood pressure, have a follow-up appointment within 1 week after discharge. ? If you had a , you should have a follow-up appointment within 2 weeks after discharge. ? If you had a vaginal without complications, you should have a follow-up appointment within 6 weeks after discharge. * Milad Hussein - Ranulfo Blue RN - 05/15/2025 10:20 AM EDT Images from the original note were not included. [id number] After a Vaginal After having a baby, your body may be very tired. It can take time to recover from a vaginal delivery. You may stay in the hospital or center from 1 to 4 days. In some cases, you may be able togo home the same day. Right after the delivery Your temperature and blood pressure will be taken until they are stable. A nurse or other healthcare provider will observe you as you rest. You may have afterbirth pains. These are cramps caused by the uterus shrinking. Sanitary pads are used to soak up the discharge of the uterine lining. To make sure that you aren?t bleeding too much, the pad will be checked. And the firmness of your uterus will be checked. To do this, a nurse will gently push down on your stomach. If you had anesthesia, you?ll be watched closely until you can feel and move your toes. If you have perineal pain (pain betweenthe vagina and anus), an ice pack can help. [place] care While still in the hospital or center, you?ll learn how to hold and feed your baby. You will also be given instructions on how to care for your baby. This includes bathing and feeding. Preparing to go home You may be anxious to go home as soon as possible. Before you and your baby go home, a healthcare provider will check to be sure you are healthy enough to take care of your baby and yourself. You?re ready to go home when: ? You can walk to the bathroom and use the bathroom without help. ? You can eat solid food and swallow pills (if needed). ? You have no sign of infection or other health problems, including fever. ? You have adequate pain control. ? Your bleeding isn't excessive. ? You are able to care for your and are emotionally stable. Before leaving the hospital or center, you?ll be given written instructions for home self-care after vaginal delivery. Be sure to follow these instructions carefully. If you have questions or concerns, talk about them now. If you have stitches You may have received stitches in the skin near your vagina. The stitches might have closed an episiotomy (an incision that enlarges the opening of the vagina). Or you may have needed stitches to repair torn skin. Either way, your stitches should dissolve within weeks. Until then, you can help reduce discomfort, aid healing, and reduce your risk of infection by keeping the stitches clean. These tips can help: ? Gently wipe from front to back after you urinate or have a bowel movement. ? After wiping, spray warm water on the area. Or you can have a sitz bath. This means sitting in a tub with a few inches of water in it. Then pat the area dry or use a hairdryer on a cool setting. ? Do not use soap or any solution except water on the area. ? You can take a shower unless told not to. ? Change sanitary pads at least every 2 to 4 hours[address] ? Place cold or heat packs on the area as directed by your healthcare providers or nurses. Keep a thin towel between the pack and your skin. ? Sit on firm seats so the stitches pull less. follow-up Schedule a follow-up exam with your healthcare provider for about 6 weeks after delivery.During this exam, your uterus and vaginal area will be checked. Contact your healthcare provider ifyou think you or your baby are having any problems. When to call your healthcare provider Call your healthcare provider right away if you have: ? A fever of 100.4??F (38.0??C) or higher ? Bleeding that needs a new sanitary pad after an hour (greater than your period), or blood clots the size of an egg or larger ? Belly (abdominal) pain, extreme tiredness, and/or rapid heartbeat: these could be signs that you are bleeding inside your belly (abdomen) that you can?t see ? Any signs your blood pressure may be high or that you may have preeclampsia, such as: o a headache that doesn?t go away after taking Tylenol o vision problems such as flashes or spots o rapid weight gain o belly (abdominal pain) on your right side o swelling (edema) in your face or hands Preeclampsia can start after delivery. preeclampsia that starts within the first 48 hours after delivery is rare. Another type of preeclampsia that starts more than 48 hours after delivery is called late-onset preeclampsia. It is also rare. Contact your healthcare provider right away if you have symptoms of preeclampsia after you deliver. ? Pain in your vagina that gets worse and isn't relieved with medicine ? Swelling, discharge, or increased pain from vaginal tear or episiotomy ? Burning, pain, red streaks, or lumpy areas in your breasts that may be accompanied by flu-like symptoms ? Cracks, blisters, or blood on your nipples ? Burning or pain when you urinate ? Nausea or vomiting ? Dizziness or fainting ? Feelings of extreme sadness or anxiety, or a feeling that you don?t want to be with your baby ? Belly pain that isn?t relieved with medicine ? Vaginal discharge that has a bad odor ? No bowel movement for 5 days ? Painful urination, or inability to control urination ? Redness, warmth, or pain in the lower leg ? Chest pain Your Follow-up Appointments Make sure you have a follow-up appointment scheduled as follows: ? If you were diagnosed with preeclampsia or blood pressure problems, have a follow-up appointment within 1 week after going home. ? If you had a , have a follow-up appointment within 2 weeks after going home. ? If you had a vaginal without complications, you should have a follow-up appointment within 6 weeks after going home. Last Reviewed Date: 2017 00:00:00 ?? [id number] [employer]. All rights reserved. This information is not intended as a substitute for professional medical care. Always follow your healthcare professional's instructions. This information has been modified by your health care provider with permission from the publisher. * Discharge Summary - Michelle Hsu MD - 05/15/2025 7:27 AM EDT Hospitalization Admit Date/Time: 05/11/2025 6:39 PM Admitting Attending: Fredi Duncan Discharge Date: 05/15/25 Discharge Attending Physician: Dr. Sin PCP name and Address: [place], BABY ATTENDANT [address] [facility] / [place] [address] Referring provider name and address: No referring provider defined for this encounter. Chief Concern, Brief History of Present Illness, and Hospital Course Meena Julian is a 24 y.o. who presented with decreased movement and vision changes. She was admitted to labor and delivery for IOL for preeclampsia diagnosis. was otherwise uncomplicated. Her labor was expectantly managed. Ancef was administered for GBS prophylaxis. Pt desired minimum exposure to antibiotics to satisfy treatment of GBS. Pt was informed standard of care is antibiotics throughout the labor course but at a minimum would desire at least the loading dose and one additional dose of antibiotic. She decided to only receive the two doses discussed and declined initial loading dose in favor of loading dose closer to time of AROM. Her labor course was uneventful and she delivered a viable female on 05/14. Her post- course was uncomplicated. Vitals remained stable. Her blood type is O Positive, and rubella immune. Her hematocrit on discharge was stable at 31. She was discharged on day 2 with routine follow up in 6-weeks for post- visit. Return precautions were discussed. Surgeries and Procedures Medication List .. acetaminophen 325 MG tablet Commonly known as: Tylenol Take 2 tablets by mouth every 6 hours. DSS 100 MG capsule Take 200 mg by mouth nightly. HM MULTIVITAMIN ADULT GUMMY PO Take by mouth. ibuprofen 600 MG tablet Take 1 tablet by mouth every 6 hours. ondansetron ODT 4 MG disintegrating tablet Commonly known as: Zofran-ODT Dissolve 1 tablet on the tongue every 8 hours as needed for nausea or vomiting (). Where to Get Your Medications These medications were sent to [facility] - [place], [place] - [address] , [facility] [id number] acetaminophen 325 MG tablet DSS 100 MG capsule ibuprofen 600 MG tablet ondansetron ODT 4 MG disintegrating tablet Discharge Diagnosis Medical Problems Active and Resolved Hospital Problems Hospital * (Principal) Pre-eclampsia in third trimester Post Discharge Instructions Medication recommendations: You should be taking acetaminophen (Tylenol) 650mg every 4-hrs alternating with ibuprofen 600mg every 6hrs for pain control. Be sure to take a stool softener daily to help with constipation. Activity recommendations + restrictions: No eating restrictions. No lifting more than 10-lbs for 6-weeks. Nothing in the vagina for 6-weeks, including intercourse, tampons, douches. Showers only for the next 6-weeks. No tub baths or submersion in water, including pools, hot tubs, etc. It is normal to have intermittent vaginal bleeding or spotting for the next several weeks as your uterus heals + returns to a pre- state. Call your [facility] or come to OB triage at [facility] if: You are having heavy vaginal requiring more than 2 maxipads in 1-hour You are having new onset of headaches, blurry vision, chest pain, shortness of air, significant legswelling. Fever (temperature >100.4 F) Severe abdominal pain, nausea/vomiting Difficulty with urination Follow-up recommendations: You should have a visit with your [employer]ING C[employer]FTSMAN scheduled in 6-weeks. Outpatient Follow-Up Future Appointments Date Time Provider Department Center 05/22/2025 10:30 AM [facility] [employer] [facility] Discharge Disposition/Condition Disposition: Home Condition: Stable (s/sx potential problems absent or manageable) I spent < 30 minutes of patient care and instruction time in preparation for this discharge. Michelle Hsu MD Obstetrics and Gynecology, PGY1 Cosigned by Jamaica Sin MD at 05/15/2025 12:12 PM EDT Associated attestation - Jamaica Sin MD - 05/15/2025 12:12 PM EDT I saw and evaluated the patient. I discussed the case with the resident/fellow and agree with the findings and plan as documented. * Progress Notes - Michelle Hsu MD - 05/15/2025 6:07 AM EDT Progress Note Subjective HPI: No acute events overnight. Patient doing well, without complaints. Pain well controlled with PO medications. Lochia less than menses. Patient reports plans bottle feeding. Tolerating po without nausea/vomiting. Ambulating, voiding spontaneously, passing flatus. ROS: 10-point review of systems was performed and negative except as stated in HPI. Objective VITALS Visit Vitals BP 116/75 (BP Location: Left arm, Patient Position: Sitting) Pulse 81 Temp 36.5 ??C (97.7 ??F) (Oral) Resp 14 Ht 1.651 m (5' 5 ) Wt 66.7 kg (147 lb 0.8 oz) LMP 08/15/2024 SpO2 96% No BMI 24.47 kg/m?? OB Status Recent Smoking Status Never BSA 1.75 m?? I&O No intake or output data in the 24 hours ending 05/15/25 0607 PHYSICAL EXAM Constitutional: No acute distress, well appearing and well nourished. Cardiovascular: Normal rate. No peripheral edema. Pulmonary: No increased work of breathing or signs of respiratory distress. Abdomen: Soft, appropriately tender to palpation, no rebound or guarding. Fundus below umbilicus. Genitourinary: Deferred Neurologic: Moves all extremities equally. Psychiatric: Mood and affect appropriate. LABS Lab Results Component Value Date WBC 11.02 (H) 05/12/2025 RBC 3.35 (L) 05/12/2025 HGB 10.2 (L) 05/12/2025 HCT 30.6 (L) 05/12/2025 PLT 171 05/12/2025 MCV 91 05/12/2025 MCH 30.4 05/12/2025 MCHC 33.3 05/12/2025 RDW 14.6 (H) 05/12/2025 MPV 13.3 (H) 05/12/2025 NRBC 0.0 05/12/2025 Lab Results Component Value Date URATECRYU 5.1 05/12/2025 CREATININE 0.63 05/12/2025 EGFR 127.2 05/12/2025 ALT 18 05/12/2025 AST 39 (H) 05/12/2025 LDH 372 (H) 05/12/2025 Assessment/Plan 24 y.o. PPD#1 s/p on 05/13 at 38w5d. # Routine care - PO pain control - Lochia appropriate - Tolerating regular diet - Voiding spontaneously. - QBL 136mL. Hct trend: 33-31. Patient declining labs . # Post Considerations - Feeding: plans bottle feeding - Blood Type: O Positive. Rhogam not indicated - Rubella Status: Immune - Tdap Status: Declined - Contraception: condoms # preeclampsia without severe features - OBP: 0.5/4.7/30/261/19-0.6/5.1/39*/372/18 - P:C 0.4 - no signs/symptoms this morning - patient declining repeat labs # Status - viable female # FEN/Prophylaxis - REG / HLIV - SCDs Dispo: Continue inpatient management. Anticipate discharge PPD#2-3 Please contact first-call provider on [employer] Secure Chat for questions or concerns. For [place] [phone]. Michelle Hsu MD Obstetrics and Gynecology, PGY1 Cosigned by Jamaica Sin MD at 05/15/2025 12:12 PM EDT Associated attestation - Jamaica Sin MD - 05/15/2025 12:12 PM EDT I saw and evaluated the patient. I discussed the case with the resident/fellow and agree with the findings and plan as documented. * Care Plan - Leonela Knight RN - 05/14/2025 7:51 PM EDT Problem: Adult Inpatient Plan of Care Goal: Plan of Care Review Outcome: Ongoing, Progressing Flowsheets (Taken 05/14/2025 1949) Progress: improving Plan of Care Reviewed With: patient Goal: Patient-Specific Goal (Individualized) Outcome: Ongoing, Progressing Flowsheets (Taken 05/14/20251948) Patient/Family-Specific Goals (Include Timeframe): patient will report any change of condition thisshift to RN Individualized Care Needs: cluster care Anxieties, Fears or Concerns: none stated at this time Goal: Absence of Hospital-Acquired Illness or Injury Outcome: Ongoing, Progressing Goal: Optimal Comfort and Wellbeing Outcome: Ongoing, Progressing Problem: Hypertensive Disorders in Goal: Patient- Stabilization Outcome: Ongoing, Progressing Intervention: Monitor and Manage Symptom Progression Flowsheets (Taken 05/14/20251948) Medication Review/Management: medications reviewed Seizure Precautions: clutter-free environment maintained Problem: (Vaginal Delivery) Goal: Successful Parent Role Transition Outcome: Ongoing, Progressing Goal: Hemostasis Outcome: Ongoing, Progressing Goal: Absence of Infection Signs and Symptoms Outcome: Ongoing, Progressing Intervention: Prevent or Manage Infection Flowsheets (Taken 05/14/20251948) Infection Management: aseptic technique maintained Isolation Precautions: precautions maintained Goal: Anesthesia/Sedation Recovery Outcome: Ongoing, Progressing Goal: Optimal Pain Control and Function Outcome: Ongoing, Progressing Goal: Effective Urinary Elimination Outcome: Ongoing, Progressing Problem: Pain Acute Goal: Optimal Pain Control and Function Outcome: Ongoing, Progressing Intervention: Prevent or Manage Pain Flowsheets (Taken 05/14/20251948) Sleep/Rest Enhancement: awakenings minimized Medication Review/Management: medications reviewed * Care Plan - Dena Valdez RN - 05/14/2025 11:09 AM EDT Problem: Adult Inpatient Plan of Care Goal: Plan of Care Review Outcome: Ongoing, Progressing Goal: Patient-Specific Goal (Individualized) Outcome: Ongoing, Progressing Goal: Absence of Hospital-Acquired Illness or Injury Outcome: Ongoing, Progressing Goal: Optimal Comfort and Wellbeing Outcome: Ongoing, Progressing Intervention: Provide Person-Centered Care Flowsheets (Taken 05/14/20251107) Trust Relationship/Rapport: care explained Problem: Hypertensive Disorders in Goal: Patient- Stabilization Outcome: Ongoing, Progressing Intervention: Monitor and Manage Symptom Progression Flowsheets (Taken 05/14/20251107) Medication Review/Management: medications reviewed Seizure Precautions: clutter-free environment maintained Problem: (Vaginal Delivery) Goal: Successful Parent Role Transition Outcome: Ongoing, Progressing Goal: Hemostasis Outcome: Ongoing, Progressing Goal: Absence of Infection Signs and Symptoms Outcome: Ongoing, Progressing Goal: Anesthesia/Sedation Recovery Outcome: Ongoing, Progressing Intervention: Optimize Anesthesia Recovery Flowsheets (Taken 05/14/2025 1108) Safety Promotion/Fall Prevention: clutter-free environment maintained Goal: Optimal Pain Control and Function Outcome: Ongoing, Progressing Goal: Effective Urinary Elimination Outcome: Ongoing, Progressing Problem: Pain Acute Goal: Optimal Pain Control and Function Outcome: Ongoing, Progressing Intervention: Prevent or Manage Pain Flowsheets (Taken 05/14/2025 1108) Medication Review/Management: medications reviewed * Progress Notes - Lorena Rincon MD - 05/14/2025 4:57 AM EDT Progress Note Subjective HPI: No acute events overnight. Patient doing well, without complaints. Pain well controlled with PO medications. Lochia less than menses. Patient reports plans bottle feeding. Tolerating po without nausea/vomiting. Denies fever/chills and chest pain/shortness of air. Ambulating, voiding spontaneously, passing flatus. ROS: 10-point review of systems was performed and negative except as stated in HPI. Objective VITALS Visit Vitals BP 129/85 Pulse 81 Temp 36.6 ??C (97.8 ??F) Resp 16 Ht 1.651 m (5' 5 ) Wt 66.7 kg (147 lb 0.8 oz) LMP 08/15/2024 SpO2 96% Unknown BMI 24.47 kg/m?? OB Status Recent Smoking Status Never BSA 1.75 m?? I&O Intake/Output Summary (Last 24 hours) at 05/14/2025 0458 Last data filed at 05/13/2025 2230 Gross per 24 hour Intake 0 ml Output 361 ml Net -361 ml PHYSICAL EXAM Constitutional: No acute distress, well appearing and well nourished. Cardiovascular: Normal rate. No peripheral edema. Pulmonary: No increased work of breathing or signs of respiratory distress. Abdomen: Soft, appropriately tender to palpation, no rebound or guarding. Fundus below umbilicus. Genitourinary: Deferred Neurologic: Moves all extremities equally. Psychiatric: Mood and affect appropriate. LABS Lab Results Component Value Date WBC 11.02 (H) 05/12/2025 RBC 3.35 (L) 05/12/2025 HGB 10.2 (L) 05/12/2025 HCT 30.6 (L) 05/12/2025 PLT 171 05/12/2025 MCV 91 05/12/2025 MCH 30.4 05/12/2025 MCHC 33.3 05/12/2025 RDW 14.6 (H) 05/12/2025 MPV 13.3 (H) 05/12/2025 NRBC 0.0 05/12/2025 Lab Results Component Value Date URATECRYU 5.1 05/12/2025 CREATININE 0.63 05/12/2025 EGFR 127.2 05/12/2025 ALT 18 05/12/2025 AST 39 (H) 05/12/2025 LDH 372 (H) 05/12/2025 Assessment/Plan 24 y.o. PPD#1 s/p on 05/13 at 38w5d. # Routine care - PO pain control - Lochia appropriate - Tolerating regular diet - Voiding spontaneously. - QBL 136mL. Hct trend: 33-31 # Post Considerations - Feeding: plans bottle feeding - Blood Type: O Positive. Rhogam not indicated - Rubella Status: Immune - Tdap Status: Declined - Contraception: condoms # Status - viable female # FEN/Prophylaxis - REG / HLIV - SCDs Dispo: Continue inpatient management. Anticipate discharge PPD#2-3 Please contact first-call provider on [employer] Secure Chat for questions or concerns. For [place] [phone]. Adina Holt, MS4 I saw and evaluated the patient with the medical student. I discussed the case with the medical student and agree with the findings and plan as documented. I personally performed the exam and medicaldecision making. Lorena Rincon MD PGY-1, Obstetrics & Gynecology Cosigned by Fredi Duncan MD at 05/14/2025 12:33 PM EDT Associated attestation - Fredi Duncan MD - 05/14/2025 12:33 PM EDT I saw and evaluated the patient with the resident/fellow. I discussed the case with the resident/fellow and agree with the findings and plan as documented. * Hospital Course - Michelle Hsu MD - 05/14/2025 4:41 AM EDT Meena Julian is a 24 y.o. who presented with decreased movement and vision changes. She was admitted to labor and delivery for IOL for preeclampsia diagnosis. was otherwise uncomplicated. Her labor was expectantly managed. Ancef was administered for GBS prophylaxis. Pt desired minimum exposure to antibiotics to satisfy treatment of GBS. Pt was informed standard of care is antibiotics throughout the labor course but at a minimum would desire at least the loading dose and one additional dose of antibiotic. She decided to only receive the two doses discussed and declined initial loading dose in favor of loading dose closer to time of AROM. Her labor course was uneventful and she delivered a viable female on 05/14. Her post- course was uncomplicated. Vitals remained stable. Her blood type is O Positive, and rubella immune. Her hematocrit on discharge was stable at 31. She was discharged on day 2 with routine follow up in 6-weeks for post- visit. Return precautions were discussed. * Care Plan - Leonela Knight RN - 05/13/2025 9:54 PM EDT Problem: Adult Inpatient Plan of Care Goal: Plan of Care Review Outcome: Ongoing, Progressing Flowsheets (Taken 05/13/2025 2149) Progress: improving Plan of Care Reviewed With: patient Goal: Patient-Specific Goal (Individualized) Outcome: Ongoing, Progressing Flowsheets (Taken 05/13/20252148) Patient/Family-Specific Goals (Include Timeframe): patient will report any change of condition thisshift Individualized Care Needs: cluster care Anxieties, Fears or Concerns: none stated at this time Goal: Absence of Hospital-Acquired Illness or Injury Outcome: Ongoing, Progressing Goal: Optimal Comfort and Wellbeing Outcome: Ongoing, Progressing Problem: Hypertensive Disorders in Goal: Patient- Stabilization Outcome: Ongoing, Progressing Intervention: Monitor and Manage Symptom Progression Flowsheets (Taken 05/13/20252148) Seizure Precautions: clutter-free environment maintained Problem: (Vaginal Delivery) Goal: Successful Parent Role Transition Outcome: Ongoing, Progressing Goal: Hemostasis Outcome: Ongoing, Progressing Goal: Absence of Infection Signs and Symptoms Outcome: Ongoing, Progressing Goal: Anesthesia/Sedation Recovery Outcome: Ongoing, Progressing Goal: Optimal Pain Control and Function Outcome: Ongoing, Progressing Intervention: Prevent or Manage Pain Flowsheets (Taken 05/13/20252148) Pain Management Interventions: care clustered quiet environment facilitated Goal: Effective Urinary Elimination Outcome: Ongoing, Progressing Problem: Pain Acute Goal: Optimal Pain Control and Function Outcome: Ongoing, Progressing Intervention: Prevent or Manage Pain Flowsheets (Taken 05/13/20252148) Sensory Stimulation Regulation: care clustered quiet environment promoted Sleep/Rest Enhancement: awakenings minimized * Care Plan - Aylin La RN - 05/13/2025 10:03 AM EDT Problem: Adult Inpatient Plan of Care Goal: Plan of Care Review Outcome: Ongoing, Progressing Flowsheets (Taken 05/13/2025 100) Progress: improving Plan of Care Reviewed With: patient Goal: Patient-Specific Goal (Individualized) Outcome: Ongoing, Progressing Goal: Absence of Hospital-Acquired Illness or Injury Outcome: Ongoing, Progressing Goal: Optimal Comfort and Wellbeing Outcome: Ongoing, Progressing Intervention: Provide Person-Centered Care Flowsheets (Taken 05/13/2025 1004) Trust Relationship/Rapport: care explained choices provided questions answered questions encouraged reassurance provided thoughts/feelings acknowledged Problem: Hypertensive Disorders in Goal: Patient- Stabilization Outcome: Ongoing, Progressing Intervention: Monitor and Manage Symptom Progression Flowsheets (Taken 05/13/2025 1004) Seizure Precautions: clutter-free environment maintained Problem: Labor Goal: Hemostasis Outcome: Met Goal: Stable Wellbeing Outcome: Met Goal: Effective Progression to Delivery Outcome: Met Goal: Absence of Infection Signs and Symptoms Outcome: Met Goal: Acceptable Pain Control Outcome: Met Goal: Normal Uterine Contraction Pattern Outcome: Met Problem: (Vaginal Delivery) Goal: Successful Parent Role Transition Outcome: Ongoing, Progressing Intervention: Support Parent Role Transition Flowsheets (Taken 05/13/2025 1004) Parent-Child Attachment Promotion: rooming-in promoted [id number] contact encouraged parent/caregiver presence encouraged participation in care promoted interaction encouraged Goal: Hemostasis Outcome: Ongoing, Progressing Goal: Absence of Infection Signs and Symptoms Outcome: Ongoing, Progressing Goal: Anesthesia/Sedation Recovery Outcome: Ongoing, Progressing Goal: Optimal Pain Control and Function Outcome: Ongoing, Progressing Goal: Effective Urinary Elimination Outcome: Ongoing, Progressing Problem: Pain Acute Goal: Optimal Pain Control and Function Outcome: Ongoing, Progressing Intervention: Prevent or Manage Pain Flowsheets (Taken 05/13/2025 1004) Sensory Stimulation Regulation: care clustered quiet environment promoted Sleep/Rest Enhancement: awakenings minimized * L&D Delivery Note - Mary Shoemaker MD - 05/13/2025 8:43 AM EDT OB Vaginal Delivery Note 05/13/2025 Meena Julian 24 y.o. Review the Delivery Report for details. Gestational Age: 38w5d /Para: Labor Complications: None Estimated Blood Loss: Delivery Blood Loss Intrapartum & : 05/12/25 2017 - 05/13/25 0843 Delivery Admission: 05/11/25 183 - 05/13/25 0843 Intrapartum & Delivery Admission Quantitative Blood Loss - Delivery (mL) Hospital Encounter 136 mL 136 mL Total 136 mL 136 mL Quantitative Blood Loss: 136 mL Delivery Type: Vaginal, Spontaneous ROM to Delivery Time: 9h 17m [place] Sex: Female [place] Weight: 1 Minute 5 Minute 10 Minute Totals: 9 9 Qamar Julian [[id number]] Delivery Providers Delivering clinician: Serena Hare MD Provider Role Mary Shoemaker MD Resident PGY-1 Aylin La, poker dealer Nurse Mac, Heydi Hall RN Charge Nurse Marie Gallegos Mat Cleaning Machine Operator Delivery Details: Meena Julian, a 24 y.o. female delivered a viable Female infant with Apgars of 9 and 9 . Delivery was via Vaginal, Spontaneous with Spinal;Epidural anesthesia. Infant delivered in Vertex Left Occiput Anterior position. Anterior and posterior shoulders delivered without difficulty. After delayed cord clamping, the cord was clamped twice, cut and 3 vessels were noted. Intact placenta delivered at 05/13/2025 8:25 AM. Placental disposition was discarded. Fundal massage performed and fundus found to be firm. Perineum, vagina, cervix were inspected, and the following lacerations were noted: Qamar Julian [[id number]] Lacerations Episiotomy: None Perineal laceration: 1st Perineal laceration repaired?: Yes Other lacerations?: No Repair suture: 2-0 Synthetic Suture The lacerations were repaired in the usual fashion using 2-0 Synthetic Suture. Excellent hemostasiswas noted. The sponge and needle counts were correct. Mary Shoemaker MD Cosigned by Serena Hare MD at 05/14/2025 9:31 AM EDT Associated attestation - Serena Hare MD - 05/14/2025 9:31 AM EDT I was present for the entirety of the procedure(s). * Progress Notes - Angelique Thakur MD - 05/13/2025 2:47 AM EDT Labor Progress Note Subjective Meena Julian is a 24 y.o. at 38w5d in labor. Patient undergoing IOL for preeclampsia diagnosis. Patient experiencing significant pain from contractions unrelieved by epidural. Anesthesia currently working with patient on pain control. Objective Visit Vitals BP 136/75 Pulse 95 Temp 36.5 ??C (97.7 ??F) (Oral) Resp 18 Last Cervical Exam: Dilation: 4 Effacement (%): 90 Station: -2 Last FHR Assessment and Uterine contraction assessment: Heart Rate Mode: External US Auscultation/Doppler FHR: 120 BPM Baseline Heart Rate: 130 bpm Baseline Classification: Normal Variability: Moderate (Between 6 and 25 BPM) Pattern: 15x15 accelerations, No decelerations FHR Category: Category I Fetus A Comments: moderate to minimal variability. Multiple Births: No Uterine Activity Mode: [place] Contraction Frequency: 1-3 min Contraction Duration: 70-90 sec Contraction Pattern: Normal Contraction Quality: Mild Resting Tone Palpated: Relaxed Contraction Comments: poor tracing Plan # Labor - CE: /-2 - Patient reports rupture of clear fluid at 2300 on 05/12, will treat as SROM and per patient wishes will start Kefzol for GBS prophylaxis - Will recheck in 4 hours - Will continue to expectantly manage at this time # Preeclampsia - New diagnosis based on labs and mild range BPs - Work Up - OBP 0.55/4.7/30/261/19 - CBC H33 P 190 - UPC 0.4 - Normotensive during laboring course overnight # GBS status - Positive - Pt hesitant about antibiotics in labor. Please see significant note for full details - Will initiate Kefzol as patient reports SROM # considerations - Feeding: to be discussed - Blood Type: O Positive. Rhogam not indicated - Declines vitamin K - Rubella Status: immune - Tdap Status: declined - Contraception: condoms # FEN/Prophylaxis - CLD / LR @ 75 - SCDs Dispo: continue inpatient management Angelique Thakur MD Obstetrics and Gynecology, PGY-4 Cosigned by Serena Hare MD at 05/14/2025 9:34 AM EDT Associated attestation - Serena Hare MD - 05/14/2025 9:34 AM EDT I saw and evaluated the patient. I discussed the case with the resident/fellow and agree with the findings and plan as documented. * Care Plan - Katy Li RN - 05/12/2025 8:46 PM EDT Problem: Adult Inpatient Plan of Care Goal: Plan of Care Review Outcome: Ongoing, Progressing Flowsheets (Taken 05/12/20252036) Progress: no change Plan of Care Reviewed With: patient parent Goal: Patient-Specific Goal (Individualized) Outcome: Ongoing, Progressing Flowsheets Taken 05/12/20252036 by Katy iL RN Patient/Family-Specific Goals (Include Timeframe): pt will notify RN if pt. is not coping with labor pain above 4/10. Anxieties, Fears or Concerns: fear of IOL Taken 05/12/2025 0737 by Mert Vazquez RN Individualized Care Needs: Care explained to patient Goal: Absence of Hospital-Acquired Illness or Injury Outcome: Ongoing, Progressing Intervention: Identify and Manage Fall Risk Flowsheets (Taken 05/12/20252036) Safety Promotion/Fall Prevention: clutter-free environment maintained room organization consistent Intervention: Prevent Infection Flowsheets (Taken 05/12/20252036) Infection Prevention: hand hygiene promoted Goal: Optimal Comfort and Wellbeing Outcome: Ongoing, Progressing Intervention: Monitor Pain and Promote Comfort Flowsheets (Taken 05/12/20252036) Pain Management Interventions: rest therapeutic presence relaxation techniques promoted quiet environment facilitated Intervention: Provide Person-Centered Care Flowsheets (Taken 05/12/20252036) Trust Relationship/Rapport: care explained emotional support provided questions answered questions encouraged reassurance provided thoughts/feelings acknowledged Problem: Hypertensive Disorders in Goal: Patient- Stabilization Outcome: Ongoing, Progressing Intervention: Optimize Blood Pressure and Fluid Status Flowsheets (Taken 05/12/20252036) Wellbeing Promotion: heart rate monitored uterine contraction activity assessed Problem: Labor Goal: Hemostasis Outcome: Ongoing, Progressing Goal: Stable Wellbeing Outcome: Ongoing, Progressing Intervention: Promote and Monitor Wellbeing Flowsheets (Taken 05/12/20252036) Wellbeing Promotion: heart rate monitored uterine contraction activity assessed Goal: Effective Progression to Delivery Outcome: Ongoing, Progressing Goal: Absence of Infection Signs and Symptoms Outcome: Ongoing, Progressing Intervention: Prevent or Manage Infection Flowsheets (Taken 05/12/20252036) Infection Management: aseptic technique maintained Infection Prevention: hand hygiene promoted Isolation Precautions: precautions maintained Goal: Acceptable Pain Control Outcome: Ongoing, Progressing Intervention: Support Labor Pain Coping and Management Flowsheets (Taken 05/12/2025736 by Mert Vazquez RN) Sensory Stimulation Regulation: quiet environment promoted care clustered Goal: Normal Uterine Contraction Pattern Outcome: Ongoing, Progressing * Care Plan - Mert Vazquez RN - 05/12/2025 7:40 AM EDT Problem: Adult Inpatient Plan of Care Goal: Plan of Care Review Outcome: Ongoing, Progressing Flowsheets (Taken 05/12/2025736) Plan of Care Reviewed With: patient parent Goal: Patient-Specific Goal (Individualized) Outcome: Ongoing, Progressing Flowsheets (Taken 05/12/2025736) Patient/Family-Specific Goals (Include Timeframe): Patient will notify nurse of need for pain medication during this shift. Individualized Care Needs: Care explained to patient Anxieties, Fears or Concerns: Concerned about antibiotic exposure Goal: Absence of Hospital-Acquired Illness or Injury Outcome: Ongoing, Progressing Goal: Optimal Comfort and Wellbeing Outcome: Ongoing, Progressing Intervention: Provide Person-Centered Care Flowsheets (Taken 05/12/2025736) Trust Relationship/Rapport: care explained questions encouraged Problem: Hypertensive Disorders in Goal: Patient- Stabilization Outcome: Ongoing, Progressing Intervention: Optimize Blood Pressure and Fluid Status Flowsheets (Taken 05/12/2025736) Wellbeing Promotion: heart rate monitored Problem: Labor Goal: Hemostasis Outcome: Ongoing, Progressing Goal: Stable Wellbeing Outcome: Ongoing, Progressing Intervention: Promote and Monitor Wellbeing Flowsheets (Taken 05/12/2025736) Wellbeing Promotion: heart rate monitored Goal: Effective Progression to Delivery Outcome: Ongoing, Progressing Goal: Absence of Infection Signs and Symptoms Outcome: Ongoing, Progressing Goal: Acceptable Pain Control Outcome: Ongoing, Progressing Intervention: Support Labor Pain Coping and Management Flowsheets (Taken 05/12/2025736) Sensory Stimulation Regulation: quiet environment promoted care clustered Goal: Normal Uterine Contraction Pattern Outcome: Ongoing, Progressing * Care Plan - Samy Valentin RN - 05/12/2025 6:56 AM EDT Problem: Hypertensive Disorders in Goal: Patient- Stabilization Outcome: Ongoing, Progressing Intervention: Monitor and Manage Symptom Progression Flowsheets (Taken 05/12/2025654) Medication Review/Management: medications reviewed Problem: Labor Goal: Hemostasis Outcome: Ongoing, Progressing Goal: Stable Wellbeing Outcome: Ongoing, Progressing Intervention: Promote and Monitor Wellbeing Flowsheets (Taken 05/12/2025654) Wellbeing Promotion: heart rate monitored Goal: Effective Progression to Delivery Outcome: Ongoing, Progressing Goal: Acceptable Pain Control Outcome: Ongoing, Progressing Intervention: Support Labor Pain Coping and Management Flowsheets (Taken 05/12/2025654) Sensory Stimulation Regulation: quiet environment promoted care clustered lighting decreased * Clinician Note - Lucia Ramon MD - 05/12/2025 3:48 AM EDT Regarding patient's GBS status and antibiotic prophylaxis decision making: On admission, patient and family were very surprised to learn that she was GBS positive. Patient had received a notification in [facility] that her GBS status was negative weeks prior. Reviewed labs available in patient's chart. There is a GBS PCR that is positive and a GBS culture that is negative. Test result was discussed with both Laborist and Machine Trimmer on-call, all parties in agreement that patient should be treated as she is colonized with GBS. Relayed this consensus to the patient. Patientand her family strongly desire to avoid unnecessary antibiotic exposure. Reviewed that while her is term and complications from GBS are rare, they can be catastrophic which is why prophylaxis is recommended with IV antibiotics in labor. Also mentioned that if she were to be inadequately treated, this may lead to more interventions of the . At this time, the patient and her mother requested consultation with the [employer] team to review the interventions required in thesetting of inadequate treatment. This consultation was kindly completed by Dr. Rivera. Following consultation, the patient did desire to proceed with GBS prophylaxis but expressed the desire for minimum of exposure to antibiotics to satisfy treatment of GBS. Provided recommendation that standard of care is antibiotics throughout the labor course but at a minimum would desire at least the loading dose and one additional dose of antibiotic. She would like to only receive the two doses discussed and declined loading dose at this time in favor of loading dose closer to time of AROM. Also reviewed patient's augmentin allergy. Patient's mother provides history that, as a child, patient experienced full body rash with exposure. Did not have anaphylaxis. Given low risk penicillin allergy, recommended Ancef as GBS ppx. Patient initially hesitant to risk cross reactivity and so was offered Vancomycin as an alternative. Ultimately, patient elected to proceed with Ancef at the time of her choosing. Will continue to discuss throughout labor course. * Clinician Note - Michaelle Latif MD - 05/12/2025 3:43 AM EDT To bedside for cervical exam. 0/0/-3 FHR: 120/mod/accels/no decels - cat 1 [place]: q3-5m Will start induction with cytotec and reassess in 4 hours Michaelle Latif MD [employer] Resident PGY-1 * H&P - Michaelle Latif MD - 05/11/2025 7:46 PM EDT [facility] OBSTETR[facility] OBSTETRIC EMERGENCY HISTORY & PHYSICAL Patient Name: Meena Julian : 2000 CHIEF CONCERN: Chief Complaint Patient presents with vision changes Hypertension Abdominal Pain Decreased Movement PRIMARY OB: OB Faculty Subjective Subjective HPI: Meena Julian is a 24 y.o. at 38w3d (05/22/2025, by Last Menstrual Period) who presents with decreased movement and vision changes. is otherwise uncomplicated. She reports decreased movement today noting that since arriving in triage the movement has returned to normal. Separately, she notes that she has had new onset blurry vision described as a crescent in the left field of her vision with and increased brightness. When asked to characterize the brightness stanshsarika states its like when she looks at the sun too long. She otherwise denies painful contractions, vaginal bleeding, or leaking of fluid. Denies fevers/chills, nausea/vomiting, headache, chest pain/shortness of air, lower extremity swelling, dysuria, constipation/diarrhea. Endorses some lightheadedness in anticipation of getting her blood drawn which happens every time she goes to get her blood drawn. OBSTETRIC HX: OB History 1 Para Term AB Living SAB IAB Ectopic Multiple Live Births LABS Lab Results Component Value Date ABO O Positive 05/03/2025 RUB Positive (A) 05/03/2025 HIV Non Reactive 05/03/2025 HEPBSAG Negative 05/03/2025 GBSPCRR Detected (A) 04/27/2025 Past Medical History Past Medical History[1] Past Surgical History Surgical History[2] Social History Social History[3] Family History Family History[4] Current Medications Current Outpatient Medications Medication Instructions Multiple Vitamins-Minerals (HM MULTIVITAMIN ADULT GUMMY PO) Take by mouth. Allergies Allergies[5] ROS: Review of Systems Objective Objective VITALS: Visit Vitals BP 130/75 Pulse 93 Temp 36.7 ??C (98 ??F) Resp 15 There is no height or weight on file to calculate BMI. PHYSICAL EXAM: OBGyn Exam Constitutional: No acute distress, well appearing and well nourished. Neck: Neck symmetric, trachea midline, no visible masses/deformities. Cardiovascular: Normal rate. Pulmonary: No increased work of breathing or signs of respiratory distress. . Breast: Deferred Gastrointestinal: Abdomen gravid, non-tender, no masses. Genitourinary: Deferred Neurologic: Alert and oriented. Moves all extremities equally. Skin: Skin and subcutaneous tissue were normal without rashes or lesions on exposed areas. Psychiatric: Mood and affect were normal. Nonstress test: 120 baseline, moderate variability, accelerations present, and decelerations absentreactive Tocometry: intermittent LABS: Lab Results Component Value Date WBC 10.40 (H) 05/03/2025 HGB 10.8 (L) 05/03/2025 HCT 34.1 05/03/2025 MCV 91 05/03/2025 PLT 200 05/03/2025 No results found for: GLUCOSE , CALCIUM , NA , K , CO2 , CL , BUN , CREATININE @RESUFAST(CREATININE,URIC,AST,LDH,ALT) No results found for: [id number] IMAGING: Bedside ultrasound: vertex Assessment/Plan Assessment / Plan Meena Julian is a 24 y.o. at 38w3d presenting with decreased movement and vision changes # Pre-eclampsia - 140/90 BP in triage, no severe ranges requiring IV medication - New diagnosis based on labs and mild range BPs - Work Up - OBP 0.55/4.7/30/261/19 - CBC H33 P 190 - UPC 0.4 - Will admit for induction of labor - Will continue to monitor for severe features # Labor - Presented with decreased movement and vision changes. Diagnosed with PreE see above - Pending CBC, T&S - presentation on BSUS: vertex - Consented for vaginal or delivery. Risks of procedures including bleeding, infection, damage to surrounding tissues, lacerations, and need for further surgery discussed and patient expressed understanding. All questions were answered to the patient's satisfaction. - Will start induction once roomed # Status - heart rate tracing: cat 1 - CEFM # GBS status - Positive: requires ancef for labor. Ordered. - Pt hesitant about antibiotics in labor. Have had extensive discussions with the team as well as with peds and is amenable to abx at rupture of membranes - Will continue to discuss # considerations - Feeding: to be discussed - Blood Type: O Positive. Rhogam not indicated - Declines vitamin K - Rubella Status: immune - Tdap Status: declined - Contraception: condoms # FEN/Prophylaxis - CLD / LR @ 75 - SCDs Dispo: admit to labor and delivery for IOL Please contact first-call provider on [employer] Secure Chat for questions or concerns. For emergencies [place] [phone]. Michaelle Latif MD [employer] Resident PGY-1 [1] Past Medical History: Diagnosis Date Juvenile arthritis [2] No past surgical history on file. [3] Social History Tobacco Use Smoking status: Never Passive exposure: Never Smokeless tobacco: Never Vaping Use Vaping status: Never Used Substance Use Topics Alcohol use: Not Currently Drug use: Never [4] No family history on file. [5] Allergies Allergen Reactions Bee Venom Swelling Augmentin [Amoxicillin-Pot Clavulanate] Rash Cosigned by Fredi Duncan MD at 05/12/2025 12:10 PM EDT Associated attestation - Fredi Duncan MD - 05/12/2025 12:10 PM EDT I saw and evaluated the patient with the resident/fellow. I discussed the case with the resident/fellow and agree with the findings and plan as documented. documented in this encounter Plan of Treatment Not on file documented as of this encounter Procedures Procedure Name Priority Date/Time Associated Diagnosis Comments TREPONEMA PALLIDUM (SYPHILIS) ANTIBODIES WITH REFLEX TO RPR AND RPR TITER (THOSE WITH NO KNOWN SYPHILIS) Routine 05/12/2025 3:58 AM EDT OB PANEL PRE ECLAMPSIA, PLASMA Routine 05/12/2025 3:58 AM EDT CBC W/O DIFFERENTIAL Routine 05/12/2025 3:58 AM EDT TREPONEMA PALLIDUM (SYPHILIS) ANTIBODIES WITH REFLEX TO RPR AND RPR TITER (THOSE WITH NO KNOWN SYPHILIS) STAT 05/11/2025 9:05 PM EDT OB PANEL PRE ECLAMPSIA, PLASMA STAT 05/11/2025 9:05 PM EDT PROTEIN, URINE, RANDOM WITH CREATININE Routine 05/11/2025 9:05 PM EDT CBC W/O DIFFERENTIAL STAT 05/11/2025 9:05 PM EDT TYPE AND SCREEN Routine 05/11/2025 9:05 PM EDT documented in this encounter Results * (ABNORMAL) OB Panel Pre-Eclampsia (05/12/2025 3:58 AM EDT) Uric Acid, Plasma 5.1 3.1 - 7.1 mg/dL 05/12/2025 4:53 AM EDT [facility] Creatinine, Plasma 0.63 0.60 - 1.10 mg/dL 05/12/2025 4:53 AM EDT [facility] ALT, Plasma 18 10 - 35 U/L 05/12/2025 4:53 AM EDT [facility] AST, Plasma 39(H) 10 - 35 U/L 05/12/2025 4:53 AM EDT [facility] Comment:Hemolyzed, result ma y be falsely increased. LDH, Plasma 372(H) 116 - 250 U/L 05/12/2025 4:53 AM EDT [facility] Comment:Hemolyzed, result ma y be falsely increased. eGFRcr 127.2 mL/min/1.7 3m*2 05/12/2025 4:53 AM EDT [facility] Comment:Reported eGFRcr in m L/min/1.73m2 is based the CKD-EPI 2020 equation that does not use a race coefficient. Blood Venous blood specimen / Unknown Venipuncture / Unknown 05/12/2025 3:58 AM EDT 05/12/2025 4:20 AM EDT us Fredi Duncan MD LAB BLOOD ORDERABLES Meryl l Result [facility] [address] [place] [address] * (ABNORMAL) CBC (05/12/2025 3:58 AM EDT) [facility] WBC Count 11.02(H) 3.70 - 10.30 10*3/uL LAB HEMATOLOGY METHOD 05/12/2025 4:37 AM EDT [facility] RBC Count 3.35(L) 3.90 - 5.20 10*6/uL LAB HEMATOLOGY METHOD 05/12/2025 4:37 AM EDT [facility] HGB 10.2(L) 11.2 - 15.7 g/dL LAB HEMATOLOGY METHOD 05/12/2025 4:37 AM EDT [facility] HCT 30.6(L) 34.0 - 45.0 % LAB HEMATOLOGY METHOD 05/12/2025 4:37 AM EDT [facility] Platelet Count 171 155 - 369 10*3/uL LAB HEMATOLOGY METHOD 05/12/2025 4:37 AM EDT [facility] MCV 91 79 - 98 fL LAB HEMATOLOGY METHOD 05/12/2025 4:37 AM EDT [facility] MCH 30.4 26.0 - 32.0 pg LAB HEMATOLOGY METHOD 05/12/2025 4:37 AM EDT [facility] MCHC 33.3 30.7 - 35.5 g/dL LAB HEMATOLOGY METHOD 05/12/2025 4:37 AM EDT [facility] RDW 14.6(H) 11.5 - 14.5 % LAB HEMATOLOGY METHOD 05/12/2025 4:37 AM EDT [facility] MPV 13.3(H) 8.8 - 12.5 fL LAB HEMATOLOGY METHOD 05/12/2025 4:37 AM EDT [facility] nRBC 0.0 <=0.0 per 100 WBCs LAB HEMATOLOGY METHOD 05/12/2025 4:37 AM EDT [facility] Blood Venous blood specimen / Unknown Venipuncture / Unknown 05/12/2025 3:58 AM EDT 05/12/2025 4:25 AM EDT Fredi Duncan MD LAB BLOOD ORDERABLES Meryl l Result [facility] [address] [place] [address] * Treponema Pallidum (Syphilis) Antibodies with Reflex to RPR and RPR Titer (Those with NO known Syphilis) (05/12/2025 3:58 AM EDT) Syphilis Antibody (IgG+IgM) Nonreactive Nonreactive 05/12/2025 5:12 AM EDT [facility] Comment:Nonreactive. No sero logic evidence of syphilis. No follow-up necessary unless clinically indicated (e.g., early syphilis). Blood Venous blood specimen / Unknown Venipuncture / Unknown 05/12/2025 3:58 AM EDT 05/12/2025 4:21 AM EDT Fredi Duncan MD LAB BLOOD ORDERABLES Meryl l Result [facility] [address] [place] [address] * Treponema Pallidum (Syphilis) Antibodies with Reflex to RPR and RPR Titer (Those with NO known Syphilis) (05/11/2025 9:05 PM EDT) Pathologist [facility] Syphilis Antibody (IgG+IgM) Nonreactive Nonreactive 05/11/2025 10:09 PM EDT [facility] Comment:Nonreactive. No sero logic evidence of syphilis. No follow-up necessary unless clinically indicated (e.g., early syphilis). Blood Venous blood specimen / Unknown Venipuncture / Unknown 05/11/2025 9:05 PM EDT 05/11/2025 9:13 PM EDT Fredi Duncan MD LAB BLOOD ORDERABLES Meryl l Result Performing Organization Address City/[facility]/ZIP Co de Phone Number [facility] [address] [place] [address] * Type and screen (05/11/2025 9:05 PM EDT) ABO/Rh O Positive 05/11/2025 9:11 PM EDT [facility] Antibody Screen Negative 05/11/2025 9:11 PM EDT [facility] Specimen Expiration 05/14/2025 23:59 05/11/2025 9:11 PM EDT [facility] Blood Venous blood specimen / Unknown Venipuncture / Unknown 05/11/2025 9:05 PM EDT 05/11/2025 9:11 PM EDT us Fredi Duncan MD LAB BLOOD BANK TEST ORDER SONYA Final Result Performing Organization Address City/[facility]/ZIP Co de Phone Number [facility] [address] [place] [address], [place] * Protein, Random, Urine with Creatinine (05/11/2025 9:05 PM EDT) Protein, Urine 6 mg/dL 05/11/2025 9:44 PM EDT [facility] Creatinine, Urine 16 mg/dL 05/11/2025 9:44 PM EDT [facility] Protein/Creatin ine Ratio 0.4 mg/mg Creat 05/11/2025 9:44 PM EDT [facility] Urine Urine specimen obtained by clean catch procedure / Unknown Non-blood Collection / Unknown 05/11/2025 9:05 PM EDT 05/11/2025 9:13 PM EDT us Fredi Duncan MD LAB URINE ORDERABLES Meryl massey Result [facility] [address] [place] [address] * (ABNORMAL) OB Panel Pre-Eclampsia, Plasma (05/11/2025 9:05 PM EDT) Uric Acid, Plasma 4.7 3.1 - 7.1 mg/dL 05/11/2025 9:44 PM EDT [facility] Creatinine, Plasma 0.55(L) 0.60 - 1.10 mg/dL 05/11/2025 9:44 PM EDT [facility] ALT, Plasma 19 10 - 35 U/L 05/11/2025 9:44 PM EDT [facility] AST, Plasma 30 10 - 35 U/L 05/11/2025 9:44 PM EDT [facility] Comment:Hemolyzed, result ma y be falsely increased. LDH, Plasma 261(H) 116 - 250 U/L 05/11/2025 9:44 PM EDT [facility] Comment:Hemolyzed, result ma y be falsely increased. eGFRcr 131.5 mL/min/1.7 3m*2 05/11/2025 9:44 PM EDT [facility] Comment:Reported eGFRcr in m L/min/1.73m2 is based the CKD-EPI 2020 equation that does not use a race coefficient. Blood Venous blood specimen / Unknown Venipuncture / Unknown 05/11/2025 9:05 PM EDT 05/11/2025 9:13 PM EDT us Fredi Duncan MD LAB BLOOD ORDERABLES Meryl shilpa Result [facility] [address] [place] [address] * (ABNORMAL) CBC W/O Differential (05/11/2025 9:05 PM EDT) WBC Count 10.34(H) 3.70 - 10.30 10*3/uL LAB HEMATOLOGY METHOD 05/11/2025 9:22 PM EDT [facility] RBC Count 3.66(L) 3.90 - 5.20 10*6/uL LAB HEMATOLOGY METHOD 05/11/2025 9:22 PM EDT [facility] HGB 10.7(L) 11.2 - 15.7 g/dL LAB HEMATOLOGY METHOD 05/11/2025 9:22 PM EDT [facility] HCT 33.3(L) 34.0 - 45.0 % LAB HEMATOLOGY METHOD 05/11/2025 9:22 PM EDT [facility] Platelet Count 190 155 - 369 10*3/uL LAB HEMATOLOGY METHOD 05/11/2025 9:22 PM EDT [facility] MCV 91 79 - 98 fL LAB HEMATOLOGY METHOD 05/11/2025 9:22 PM EDT [facility] MCH 29.2 26.0 - 32.0 pg LAB HEMATOLOGY METHOD 05/11/2025 9:22 PM EDT [facility] MCHC 32.1 30.7 - 35.5 g/dL LAB HEMATOLOGY METHOD 05/11/2025 9:22 PM EDT [facility] RDW 14.2 11.5 - 14.5 % LAB HEMATOLOGY METHOD 05/11/2025 9:22 PM EDT [facility] MPV 12.3 8.8 - 12.5 fL LAB HEMATOLOGY METHOD 05/11/2025 9:22 PM EDT [facility] nRBC 0.0 <=0.0 per 100 WBCs LAB HEMATOLOGY METHOD 05/11/2025 9:22 PM EDT [facility] Blood Venous blood specimen / Unknown Venipuncture / Unknown 05/11/2025 9:05 PM EDT 05/11/2025 9:13 PM EDT us Fredi Duncan MD LAB BLOOD ORDERABLES Meryl shilpa Result [facility] [address] [place] [address] documented in this encounter Visit Diagnoses Diagnosis Pre-eclampsia in third trimester- Primary documented in this encounter Admitting Diagnoses Diagnosis Pre-eclampsia in third trimester documented in this encounter Administered Medications Inactive Administered Medications - up to 3 most recent administrations Medication Order MAR Action Action Date Dose Rate Site acetaminophen (Tylenol) tablet 650 mg 650 mg, Oral, Every 6 hours, First dose on 05/13/25 at 1000, Until Discontinued, Routine, Given 05/15/2025 10:30 AM EDT 650 mg Given 05/15/2025 4:13 AM EDT 650 mg Given 05/14/2025 9:44 PM EDT 650 mg benzocaine-menthol (Dermoplast) topical spray 1 spray Topical, 4 times daily PRN, Starting on 05/13/25 at 0901, Until 05/15/25 at 1542, Routine, Mild + Pain > or =1: CPOT, DVPRS, FLACC, PAINAD, NPASS, NRS, Colmenares-Bledsoe Faces; > or =2: NIPS , irritation Given 05/13/2025 9:17 AM EDT 1 spray butorphanol (Stadol) injection 1 mg 1 mg, Intravenous, Once, 1 dose, On Thu05/12/25 at 2015, Routine Given 05/12/2025 9:17 PM EDT 1 mg ceFAZolin (Ancef) injection 2 g 2 g, Intravenous, Once, 1 dose, On Leisa 05/11/25 at 2245, Routine, Pre-Delivery Given 05/13/2025 3:59 AM EDT 2 g docusate sodium (Colace) capsule 200 mg 200 mg, Oral, Nightly, First dose on 05/13/25 at 2100, Until Discontinued, Routine, Given 05/14/2025 9:44 PM EDT 200 mg Given 05/13/2025 10:04 PM EDT 200 mg fentaNYL 2 mcg/mL + bupivacaine 1 mg/mL epidural 100 mL PCEA Continuous Rate: 0 mL/hr (0 mcg/hr), Patient Bolus Dose: 5 mL (10 mcg), Patient Bolus Lockout Interval: 15 Minutes, Programmed Intermittent Bolus Dose (NO Continuous Rate): 8 mL, Programmed Intermittent Bolus Dose Interval - NO Continuous Rate: 45 min, Epidural, Routine New Bag 05/13/2025 6:00 AM EDT New Bag 05/13/2025 12:11 AM EDT hydrOXYzine pamoate (Vistaril) capsule 25 mg 25 mg, Oral, Every 6 hours PRN, Starting on 05/13/25 at 0158, Until 05/13/25 at 0901, Routine, anxiety Given 05/13/2025 2:06 AM EDT 25 mg ibuprofen tablet 600 mg 600 mg, Oral, Every 6 hours, First dose on 05/13/25 at 1300, Until Discontinued, Routine, PostpartumIndications:Mild to Moderate Pain Given 05/15/2025 10:30 AM EDT 600 mg Given 05/15/2025 4:14 AM EDT 600 mg Given 05/14/2025 9:44 PM EDT 600 mg lactated Ringer's bolus 500 mL 500 mL, Intravenous, Once, 1 dose, On 05/13/25 at 0030, Administer over 2 Hours, Routine New Bag 05/12/2025 11:58 PM EDT 500 mL 250 mL/hr magnesium hydroxide (Milk of Magnesia) 400 MG/5ML suspension 30 mL 30 mL, Oral, Daily PRN, Starting on 05/14/25 at 1202, Until 05/15/25 at 1542, Routine, constipation Given 05/14/2025 4:56 PM EDT 30 mL miSOPROStol (Cytotec) split tablet 25 mcg 25 mcg, Vaginal, Every 4 hours PRN, 4 doses, Starting on Leisa 05/11/25 at 2154, Until 05/13/25 at 0901, Routine, Pre-Delivery, Cervical ripeningIndications:Cervical Ripening,Induction of Labor Given 05/12/2025 2:56 PM EDT 25 mcg Given 05/12/2025 9:44 AM EDT 25 mcg Given 05/12/2025 3:40 AM EDT 25 mcg ondansetron (Zofran) injection 4 mg 4 mg, Intravenous, Every 6 hours PRN, Starting on Leisa 05/11/25 at 2156, Until 05/13/25 at 0901, Routine, Pre-Delivery, vomiting, nausea Given 05/13/2025 6:56 AM EDT 4 mg oxytocin (Pitocin) infusion in sodium chloride 0.9% 30 units/500 mL 65 dax-units/min (65 mL/hr), Intravenous, Continuous, Starting on 05/13/25 at 1000, Until 05/13/25 at 1646, Routine New Bag 05/13/2025 8:47 AM EDT 65 dax-units/min 65 mL/hr oxytocin bolus from bag 28,000 dax-units, Intravenous, Once, 1 dose, On 05/13/25 at 1000, Routine Bolus from Bag 05/13/2025 8:17 AM EDT 28,000 dax-units senna (Senokot) tablet 8.6 mg 8.6 mg, Oral, Nightly, First dose on 05/14/25 at 2100, Until Discontinued, Routine Given 05/14/2025 9:44 PM EDT 8.6 mg witch asad-glycerin (Tucks) pad 1 each Topical, 4 times daily PRN, Starting on 05/13/25 at 0901, Until 05/15/25 at 1542, Routine, irritation, hemorrhoids Given 05/13/2025 9:16 AM EDT 1 each documented in this encounter Active and Recently Administered Medications Times are shown in EDT. Scheduled Medication Order 05/13/2025 05/14/2025 05/15/2025 acetaminophen (Tylenol) tablet 650 mg 650 mg, Oral, Every 6 hours, First dose on 05/13/25 at 1000, Until Discontinued, Routine, 0915 (Not Given - Provider: Aylin La RN - Reason: Patient/family refused)165 (Given - Provider: Edna Schmidt RN)220 (Given - Provider: Leonela Knight, KRISTIN) 0527 (Given - Provider: Leonela Knight, KRISTIN)101 (Given - Provider: Dena Valdez RN)165 (Given - Provider: Dena Valdez RN)2144 (Given - Provider: Leonela Knight RN) 0413 (Given - Provider: Leonela Knight RN)1030 (Given - Provider: Dena Valdez RN) ceFAZolin (Ancef) injection 2 g (COMPLETED)(Linked Group 1) 2 g, Intravenous, Once, 1 dose, On Leisa 05/11/25 at 2245, Routine, Pre-Delivery 0359 (Given - Provider: Katy Li RN) docusate sodium (Colace) capsule 200 mg 200 mg, Oral, Nightly, First dose on 05/13/25 at 2100, Until Discontinued, Routine, 220 (Given - Provider: Leonela Knight RN) 214 (Given - Provider: Leonela Knight RN) ibuprofen tablet 600 mg 600 mg, Oral, Every 6 hours, First dose on 05/13/25 at 1300, Until Discontinued, Routine, 1013 (Given - Provider: Aylin La RN)1652 (Given - Provider: Edna Schmidt RN)2204 (Given - Provider: Leonela Knight RN) 0528 (Given - Provider: Leonela Knight RN)1010 (Given - Provider: Dean Valdez, KRISTIN)1656 (Given - Provider: Dena Valdez RN)2144 (Given - Provider: Leonela Knight RN) 0414 (Given - Provider: Leonela Knight RN)1030 (Given - Provider: Dena Valdez, KRISTIN) oxytocin bolus from bag (COMPLETED)(Linked Group 2) 28,000 dax-units, Intravenous, Once, 1 dose, On 05/13/25 at 1000, Routine 0817 (Bolus from Bag - Provider: Aylin La RN) senna (Senokot) tablet 8.6 mg 8.6 mg, Oral, Nightly, First dose on 05/14/25 at 2100, Until Discontinued, Routine 2143 (Given - Provider: Leonela Knight RN) Continuous Medication Order 05/13/2025 05/14/2025 05/15/2025 fentaNYL 2 mcg/mL + bupivacaine 1 mg/mL epidural 100 mL PCEA (CANCELED)(Linked Group 3) Continuous Rate: 0 mL/hr (0 mcg/hr), Patient Bolus Dose: 5 mL (10 mcg), Patient Bolus Lockout Interval: 15 Minutes, Programmed Intermittent Bolus Dose (NO Continuous Rate): 8 mL, Programmed Intermittent Bolus Dose Interval - NO Continuous Rate: 45 min, Epidural, Routine 0011 (New Bag - Provider: Katy Li RN)0600 (New Bag - Provider: Katy Li RN) oxytocin (Pitocin) infusion in sodium chloride 0.9% 30 units/500 mL ()(Linked Group 2) 65 dax-units/min (65 mL/hr), Intravenous, Continuous, Starting on 05/13/25 at 1000, Until 05/13/25 at 1646, Routine 0847 (New Bag - Provider: Aylin La, KRISTIN) PRN Medication Order 05/13/2025 05/14/2025 05/15/2025 benzocaine-menthol (Dermoplast) topical spray 1 spray Topical, 4 times daily PRN, Starting on 05/13/25 at 0901, Until 05/15/25 at 1542, Routine, Mild + Pain > or =1: CPOT, DVPRS, FLACC, PAINAD, NPASS, NRS, Colmenares-Bledsoe Faces; > or =2: NIPS , irritation 0917 (Given - Provider: Aylin La, KRISTIN) calcium carbonate (Tums) chewable tablet 1,000 mg 1,000 mg, Oral, 4 times daily PRN, Starting on 05/13/25 at 0901, Until 05/15/25 at 1542, Routine, , indigestion, heartburn diphenhydrAMINE (Benadryl) tablet 25 mg 25 mg, Oral, Every 6 hours PRN, Starting on 05/13/25 at 0901, Until 05/15/25 at 1542, Routine, , itching fentanyl + bupivacaine clinician bolus dose 1-5 mL (CANCELED)(Linked Group 3) 1-5 mL, Epidural, As needed, Starting on Thu05/12/25 at 2342, Until 05/13/25 at 0901, Routine, severe pain, Moderate/Severe Pain > or =3: CPOT; > or =4: FLACC, PAINAD, NPASS, NRS, Colmenares-Bledsoe Faces; > or =5: DVPRS, NIPS 0014 (New Bag - Provider: Eddie Cardona DO)0500 (Bolus - Provider: Eddie Cardona DO)0523 (Bolus - Provider: Eddie Cardona DO) hydrocortisone (Anusol-HC) 2.5 % rectal cream 1 Application Rectal, 2 times daily PRN, Starting on 05/13/25 at 0901, Until 05/15/25 at 1542, Routine, hemorrhoids hydrOXYzine pamoate (Vistaril) capsule 25 mg (CANCELED) 25 mg, Oral, Every 6 hours PRN, Starting on 05/13/25 at 0158, Until 05/13/25 at 0901, Routine, anxiety 0206 (Given - Provider: Archana Rodarte RN) lansinoh lanolin cream 1 Application Topical, Every 1 hour PRN, Starting on 05/13/25 at 0901, Until 05/15/25 at 1542, Routine, dry skin magnesium hydroxide (Milk of Magnesia) 400 MG/5ML suspension 30 mL 30 mL, Oral, Daily PRN, Starting on 05/14/25 at 1202, Until 05/15/25 at 1542, Routine, constipation 1656 (Given - Provider: Dena Valdez, RN) ondansetron (Zofran) injection 4 mg (CANCELED)(Linked Group 4) 4 mg, Intravenous, Every 6 hours PRN, Starting on Leisa 05/11/25 at 2156, Until 05/13/25 at 0901, Routine, Pre-Delivery, vomiting, nausea 0656 (Given - Provider: Katy Li, KRISTIN) ondansetron ODT (Zofran-ODT) disintegrating tablet 4 mg 4 mg, Oral, Every 8 hours PRN, Starting on 05/13/25 at 0901, Until 05/15/25 at 1542, Routine, , nausea, vomiting, promethazine (Phenergan) tablet 25 mg 25 mg, Oral, Every 4 hours PRN, Starting on 05/13/25 at 0901, Until 05/15/25 at 1542, Routine, , nausea, vomiting simethicone (Mylicon) chewable tablet 80 mg 80 mg, Oral, Every 6 hours PRN, Starting on 05/13/25 at 0901, Until 05/15/25 at 1542, Routine, , flatulence, flatulence, dyspepsia witch asad-glycerin (Tucks) pad 1 each Topical, 4 times daily PRN, Starting on 05/13/25 at 0901, Until 05/15/25 at 1542, Routine, irritation, hemorrhoids 0916 (Given - Provider: Aylin La RN) Linked Groups Order Group 1: ceFAZolin (Ancef) injection 2 g (COMPLETED)Jump to med 2 g, Intravenous, Once, 1 dose, On Leisa 05/11/25 at 2245, Routine, Pre-Delivery And ceFAZolin (Ancef) injection 1 g (CANCELED) 1 g, Intravenous, Every 8 hours, 21 doses, First dose on 05/12/25 at 0645, Last dose on Thu05/19/25 at 0015, Routine, Pre-Delivery Group 2: oxytocin bolus from bag (COMPLETED)Jump to med 28,000 dax-units, Intravenous, Once, 1 dose, On 05/13/25 at 1000, Routine Followed by oxytocin (Pitocin) infusion in sodium chloride 0.9% 30 units/500 mL ()Jump to med 65 dax-units/min (65 mL/hr), Intravenous, Continuous, Starting on 05/13/25 at 1000, Until 05/13/25 at 1646, Routine Group 3: fentaNYL 2 mcg/mL + bupivacaine 1 mg/mL epidural 100 mL PCEA (CANCELED)Jump to med Continuous Rate: 0 mL/hr (0 mcg/hr), Patient Bolus Dose: 5 mL (10 mcg), Patient Bolus Lockout Interval: 15 Minutes, Programmed Intermittent Bolus Dose (NO Continuous Rate): 8 mL, Programmed Intermittent Bolus Dose Interval - NO Continuous Rate: 45 min, Epidural, Routine And fentanyl + bupivacaine clinician bolus dose 1-5 mL (CANCELED)Jump to med 1-5 mL, Epidural, As needed, Starting on 05/12/25 at 2342, Until 05/13/25 at 0901, Routine, severe pain, Moderate/Severe Pain > or =3: CPOT; > or =4: FLACC, PAINAD, NPASS, NRS, Colmenares-Bledsoe Faces; > or =5: DVPRS, NIPS Group 4: ondansetron ODT (Zofran-ODT) disintegrating tablet 4 mg (CANCELED) 4 mg, Oral, Every 6 hours PRN, Starting on Leisa 05/11/25 at 2156, Until 05/13/25 at 0901, Routine, Pre-Delivery, nausea, vomiting Or ondansetron (Zofran) injection 4 mg (CANCELED)Jump to med 4 mg, Intravenous, Every 6 hours PRN, Starting on Leisa 05/11/25 at 2156, Until 05/13/25 at 0901, Routine, Pre-Delivery, vomiting, nausea Or ondansetron (Zofran) 4 MG/5ML solution 4 mg (CANCELED) 4 mg, Oral, Every 6 hours PRN, Starting on Leisa 05/11/25 at 2156, Until 05/13/25 at 0901, Routine, Pre-Delivery, nausea, vomiting documented in this encounter Additional Health Concerns Assessment Noted Time PHQ-9 Depression Total Score: 0 04/05/20 9:46 AM EDT A Body Mass Index follow-up plan has been documented for the patient 05/15/2025 11:27 AM EDT documented as of this encounter Care Teams Rag Baler Relationship Specialty Start Date End Date Humera Meadows APRN [address] [place] [address] PCP - General 04/05/25 documented as of this encounter
--- OUTSIDE RECORDS SUMMARY | 2025-05-12 23:04 | XMS_ITS | Encounter Summary ---
Author Organization Healthcare Address [address] [id number] Care Team Providers Care Carbonating Stone Cleaner Name Role Phone Humera Meadows APRN Primary Care Provider +1- [phone] Reason for Visit * Auth/Cert (Routine) Specialty Diagnoses / Procedures Referred By Contac t Referred To Contact Diagnoses Pre-eclampsia in third trimester Fredi Duncan MD [address] [address] Phone: tel: fax: [facility] [address] [place] [phone] Phone: tel: Referral ID Status Reason Start Date Expiration Date Visits Re quested Visits Authorized [id number] 1 1 Encounter Details Date Type Department Care Team (Late st Contact Info) Description 05/13/2025 12:04 AM EDT Anesthesia Event [facility] [address] [place] [address] Victorino Rodriguez MD [address] [place] [address] Eddie Cardona, [address] [place] [address] Anesthesia Record Procedure Summary Procedure Name Responsible Anesthesiologist Anesthesia Start Time Anesthesia Stop Time Labor Analgesia Victorino Rodriguez MD 05/13/25 0004 0817 Events Date Time Event Comment 05/13/2025 0004 An Start The patient was reevaluated immediately before sedation and remains eligible for anesthesia plan. 0008 Epidural Placed 0109 Face Time Patient with co ntinued contraction pain, reports use of PCEA as confirmed by mother at bedside. L2-3 level on right, T12 on left with poor density, manual bolus given. 0159 Face Time Still with pain , slightly more dense/higher block on left, unchanged on right, re-dosed 8cc 0.2% ropi and 50mcg fentanyl. Discussed replacement if unchanged level on next reassessment, patient and family agreeable. 0221 Face Time Improved level on Left now T10, no change on right, catheter retracted 1cm sterilely and re-secured. Lidocaine bolus to check efficacy of change. 0255 Face Time After a lengthy discussion of risks, benefits, and alternatives, between resident, attending, patient and family, the decision was made to remove current epidural and replace catheter with CSE. 0303 Face Time Epidural cathet er removed with tip intact 0308 Face Time CSE with new ep idural catheter placed. 0436 Face Time Patient with pr evious pain relieve from CSE dose, now starting to experience pain again, bilateral T12 level with good density distal. PCEA button used just prior to entry to room. 0522 Face Time Some improved c omfort with last bolus, will repeat, about to begin pushing with OB team. 0817 An Stop 0933 Epidural Catheter Removed 0933 Jg Epidural cathet er removed with tip intact 0933 Handoff to Receiving I compl eted my handoff to the receiving clinician during which we: 1. Identified the patient 2. Identified the responsible provider 3. Reviewed the pertinent medical history 4. Discussed the surgical course 5. Reviewed intra-op anesthesia management and issues during anesthesia 6. Set expectations for post-procedure period 7. Allowed opportunity for questions and acknowledgement of understanding. Meds Name Total fentanyl + bupivacaine clinician bolus d ose 1-5 mL 25 mL ropivacaine (Naropin) injection 0.2 % 16 mL fentaNYL (Sublimaze) injection 50 mcg/mL 50 mcg fentaNYL (SUBLIMAZE) 25 mcg lidocaine PF (Xylocaine-MPF) 1% 5 mL bupivacaine PF (Marcaine) injection 0.25 % 2 mg * Agents No agents on file. * Blood No blood administrations on file. Lines, Drains, and Airways Type Details Placement Removal Peripheral IV Placement Date: 05/12/25; Placement Time: 0000; Catheter Size: 20 G; Orientation: Anterior, Right; Location: Forearm; Removal Date: 05/15/25; Removal Time: 1130; Removal Reason: Discharge 05/12/25 0000 by Katy Li RN 05/15/25 1130 by Angelique Hall RN Epidural Placement Date: 05/13/25; Placement Time: 0008; Location: Lumbar (1-5); Removal Date: 05/13/25; Removal Time: 041 (removed via procedure documentation) 05/13/25 0008 by Katy Li RN 05/13/25 0415 by Eddie Cardona DO Epidural Placement Date: 05/13/25; Placement Time: 025 (created via procedure documentation); Removal Date: 05/13/25; Removal Time: 0905/13/25 0259 by Eddie Cardona DO 05/13/25 0933 by Sheri Ibarra MD Urethral Catheter Placement Date: 05/13/25; Placement Time: 033; Inserted by: KRISTIN Burns; Urine Returned: Yes; Removal Date: 05/13/25; Removal Time: 0645 05/13/25 0330 by Katy Li RN 05/13/25 0645 by Katy Li RN documented in this encounter Social History Tobacco Use Types Packs/Day Years Used Date Smoking Tobacco: Never Passive Smoke Exposure: Never Smokeless Tobacco: Never Alcohol Use Standard Drinks/Week Comments Not Currently 0 (1 standard drink = 0.6 oz pur e alcohol) PHQ-2 Answer Date Recorded Patient Health Questionnaire-2 Score 0 04/05/2025 PHQ-9 Answer Date Recorded Patient Health Questionnaire-9 Score 0 04/05/2025 [place] Depression Scale Answer Date Recorded [place] Depression Scale Total 4 05/13/2025 The thought [...] drink first t sparkle in the morning (EYE-INVESTMENT BANKING MANAGER) to steady your nerves or to get rid of a hangover? 0 05/11/2025 CAGE Questionnaire Score 0 025 Comments No Sex and Gender Information Value Date Recorded Sex Assigned at Not on file Legal Sex Female 10:37 AM EDT Gender Identity Not on file Sexual Orientation Straight 03/29/2025 11 :10 AM EDT documented as of this encounter Miscellaneous Notes * Anesthesia Postprocedure Evaluation - Sheri Ibarra MD - 05/18/2025 7:30 AM EDT Patient: Meena Julian Anesthesia Type: DPE Vitals Value Taken Time BP See RN flowsheet 05/18/25 07:30 Temp See RN flowsheet 05/18/25 07:30 Pulse See RN flowsheet 05/18/25 07:30 Resp See RN flowsheet 05/18/25 07:30 SpO2 See RN flowsheet 05/18/25 07:30 Anesthesia Post Evaluation Patient location during evaluation: floor Patient participation: complete - patient participated Level of consciousness: awake Pain management: adequate (pain score 0-3) Airway patency: natural airway Cardiovascular status: acceptable and hemodynamically stable Respiratory status: acceptable, blow-by oxygen, spontaneous ventilation, unassisted, room air and nonlabored ventilation Hydration status: acceptable Nausea/Vomiting: No No notable events documented. Cosigned by Rodrigo Calero MD at 05/19/2025 4:22 PM EDT Associated attestation - Rodrigo Calero MD - 05/19/2025 4:22 PM EDT I agree with the findings and care plan documented in the postprocedure evaluation note. * Anesthesia Procedure Notes - Eddie Cardona DO - 05/13/2025 4:12 AM EDT Associated Order(s): CSE Block CSE Block Patient location during procedure: OB Start time: 05/13/2025 2:59 AM End time: 05/13/2025 3:10 AM Reason for block: labor analgesia Staffing Performed: Resident Anesthesiologist: Victorino Rodriguez MD Resident: Eddie Cardona DO Preanesthetic Checklist Completed: patient identified, IV checked, site marked, risks and benefits discussed, surgical consent, monitors and equipment checked, pre-op evaluation and timeout performed CSE Block Patient position: sitting Prep: ChloraPrep and site prepped and draped Patient monitoring: continuous pulse ox and heart rate Approach: midline Spinal Needle Needle type: pencil-tip Needle gauge: 25 G Epidural Needle Injection technique: MANDI air Needle type: Tuohy Needle gauge: 17 G Needle length: 3.5 in Needle insertion depth (cm): 5 Catheter Catheter type: side hole Catheter size: 19 G Catheter at skin depth (cm): 10 Test dose: lidocaine 1.5% with epinephrine 1-to-200,000 Medications Administered: fentaNYL (SUBLIMAZE) - Intrathecal 25 mcg - 05/13/2025 3:07:00 AM Additional Notes After identification of superficial landmarks the skin was prepped with Chlora- Prep. Sterile drape placed. Skin anesthetized with 1% lidocaine. Tuohy needle then inserted with MANDI at 5 cm. Spinal needle was inserted through tuohy needle with return of CSF upon aspiration. Mixture of bupivacaine andfentanyl were administered intrathecally after aspiration of clear fluid. Catheter threaded easily and inserted 5cm into the space. Aspiration negative. Tested with 1.5% lidocaine with 1:200k epi 2 cc negative for IV or SA dose. Patient experienced no paresthesias. Catheter secured in place with LOCKIT, tegaderm and tape. Cosigned by Victorino Rodriguez MD at 05/13/2025 6:52 AM EDT Associated attestation - Victorino Rodriguez MD - 05/13/2025 6:52 AM EDT Initial epidural yielded strong left sided numbness, however despite repeated bolus doses, repositioning patient and withdrawing catheter 1cm, right sided coverage was inadequate so we offered replacement and patient elected to proceed. Due to discomfort, patient was offered and elected to proceed with CSE. Smooth and uncomplicated CSE placement. Clear loss of resistance with Tuohy needle, 25G spinal needle advanced without difficulty or paresthesia with return of clear CSF. 0.8cc 0.25% preservative free bupivacaine with 25mcg fentanyl administered via spinal needle. Smooth dilation of epidural space and placement of epidural catheter without pain or paresthesias. Aspiration negative for blood and CSF. Test dose negative. No complications. Patient comfort had improved substantially by theconclusion of the procedure. Fluid bolus requested. See resident note for details. I was present for the entire procedure. * Anesthesia Procedure Notes - Eddie Cardona DO - 05/13/2025 12:27 AM EDTAssociated Order(s): DPE Block DPE Block Patient location during procedure: OB Reason for block: labor analgesia Staffing Performed: Resident Anesthesiologist: Victorino Rodriguez MD Resident: Eddie Cardona DO Preanesthetic Checklist Completed: patient identified, IV checked, risks and benefits discussed, surgical consent, monitorsand equipment checked, pre-op evaluation and timeout performed DPE Block Patient position: sitting Prep: ChloraPrep and site prepped and draped Patient monitoring: continuous pulse ox Approach: midline Spinal Needle Needle type: pencil-tip Needle gauge: 25 G Epidural Needle Needle type: Tuohy Needle gauge: 17 G Needle length: 3.5 in Needle insertion depth (cm): 4 Catheter Catheter type: side hole Catheter size: 19 G Catheter at skin depth (cm): 9 Additional Notes After identification of superficial landmarks the skin was prepped with Chlora- Prep. Sterile drape placed. Skin anesthetized with 1% lidocaine. Tuohy needle then inserted with MANDI at 4 cm. Spinal needle was inserted through tuohy needle with free return of CSF. Catheter threaded easily and [id number] into the space. Aspiration negative. Tested with 1.5% lidocaine with 1:200k epi 2 cc negative for IV or SA dose. Patient experienced no paresthesias. Catheter secured in place with LOCKIT, tegaderm and tape. Cosigned by Victorino Rodriguez MD at 05/13/2025 6:50 AM EDT Associated attestation - Victorino Rodriguez MD - 05/13/2025 6:50 AM EDT H&P reviewed and risks, benefits and alternatives for neuraxial anesthesia discussed with patient. Patient desires epidural for labor analgesia and is an appropriate candidate. Smooth, atraumaticand uneventful epidural placement with confirmatory DPE with 25G spinal needle with return of clearCSF. No paresthesias or complications. Catheter aspiration negative for CSF and blood. Test dose neg ative. I was immediately available for the entire procedure. * Anesthesia Preprocedure Evaluation - Eddie Cardona DO - 05/12/2025 11:41 PM EDT Patient: Meena Julian Procedure Information Date: 05/12/25 Procedure: Labor Consult , pre-eclampsia this , pmh of well controlled gestational GERD, but otherwise healthy,GA in childhood without apparent complication, denies family hx of anesthesia complications. DeniesAC or known coagulopathy. 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 Relevant Problems Cardio (+) Pre-eclampsia in third trimester Clinical information reviewed: Allergies Anesthesia Evaluation Physical Exam Airway Mallampati: III Mouth opening: normal TM distance: >3 FB Neck ROM: full Cardiovascular Rhythm: regular Rate: normal Dental - normal exam Pulmonary Breath sounds clear to auscultation Neurological Oriented: normal to time, normal to place and normal to person and oriented to person, place and time Skin Musculoskeletal Extremities Anesthesia Plan ASA 2 Plan was reviewed with: attending Anesthesia technique(s) discussed with the patient/family: CSE, DPE, epidural, general, regional and spinal Anesthesia plan agreed upon was: DPE Anesthetic plan and risks discussed with patient. Use of blood products discussed with patient who consented to blood products. Additional Equipment Requests Cosigned by Victorino Rodriguez MD at 05/13/2025 6:49 AM EDT Associated attestation - Victorino Rodriguez MD - 05/13/2025 6:49 AM EDT I agree with the findings and care plan documented in the preprocedure evaluation note. documented in this encounter Plan of Treatment Not on file documented as of this encounter Procedures Procedure Name Priority Date/Time Associated Diagnosis Comments ANESTHESIA CSE BLOCK Routine 05/13/2025 2:59 AM EDT ANESTHESIA DPE BLOCK 05/13/2025 12:27 AM EDT documented in this encounter Results * CSE Block (05/13/2025 2:59 AM EDT) Narrative Victorino Rodriguez MD - 05/13/2025 2:59 AM EDT Victorino Rodriguez MD 05/13/2025 6:52 AM CSE Block Patient location during procedure: OB Start time: 05/13/2025 2:59 AM End time: 05/13/2025 3:10 AM Reason for block: labor analgesia Staffing Performed: Resident Anesthesiologist: Victorino Rodriguez MD Resident: Eddie Cardona DO Preanesthetic Checklist Completed: patient identified, IV checked, site marked, risks and benefits discussed, surgical consent, monitors and equipment checked, pre-op evaluation and timeout performed CSE Block Patient position: sitting Prep: ChloraPrep and site prepped and draped Patient monitoring: continuous pulse ox and heart rate Approach: midline Spinal Needle Needle type: pencil-tip Needle gauge: 25 G Epidural Needle Injection technique: MANDI air Needle type: Tuohy Needle gauge: 17 G Needle length: 3.5 in Needle insertion depth (cm): 5 Catheter Catheter type: side hole Catheter size: 19 G Catheter at skin depth (cm): 10 Test dose: lidocaine 1.5% with epinephrine 1-to-200,000 Medications Administered: fentaNYL (SUBLIMAZE) - Intrathecal 25 mcg - 05/13/2025 3:07:00 AM Additional Notes After identification of superficial landmarks the skin was prepped with Chlora-Prep. Sterile drape placed. Skin anesthetized with 1% lidocaine. Tuohy needle then inserted with MANDI at 5 cm. Spinal needle was inserted through tuohy needle with return of CSF upon aspiration. Mixture of bupivacaine and fentanyl were administered intrathecally after aspiration of clear fluid. Catheter threaded easily and inserted 5cm into the space. Aspiration negative. Tested with 1.5% lidocaine with 1:200k epi 2 cc negative for IV or SA dose. Patient experienced no paresthesias. Catheter secured in place with LOCKIT, tegaderm and tape. us Victorino Rodriguez MD ANESTHESIA ORDERABLES Final Result * DPE Block (05/13/2025 12:27 AM EDT) Narrative Victorino Rodriguez MD - 05/13/2025 12:27 AM EDT Victorino Rodriguez MD 05/13/2025 6:50 AM DPE Block Patient location during procedure: OB Reason for block: labor analgesia Staffing Performed: Resident Anesthesiologist: Victorino Rodriguez MD Resident: Eddie Cardona DO Preanesthetic Checklist Completed: patient identified, IV checked, risks and benefits discussed, surgical consent, monitors and equipment checked, pre-op evaluation and timeout performed DPE Block Patient position: sitting Prep: ChloraPrep and site prepped and draped Patient monitoring: continuous pulse ox Approach: midline Spinal Needle Needle type: pencil-tip Needle gauge: 25 G Epidural Needle Needle type: Tuohy Needle gauge: 17 G Needle length: 3.5 in Needle insertion depth (cm): 4 Catheter Catheter type: side hole Catheter size: 19 G Catheter at skin depth (cm): 9 Additional Notes After identification of superficial landmarks the skin was prepped with Chlora-Prep. Sterile drape placed. Skin anesthetized with 1% lidocaine. Tuohy needle then inserted with MANDI at 4 cm. Spinal needle was inserted through tuohy needle with free return of CSF. Catheter threaded easily and inserted 5cm into the space. Aspiration negative. Tested with 1.5% lidocaine with 1:200k epi 2 cc negative for IV or SA dose. Patient experienced no paresthesias. Catheter secured in place with LOCKIT, tegaderm and tape. us Victorino Rodriguez MD ANESTHESIA ORDERABLES Final Result documented in this encounter Visit Diagnoses Not on filedocumented in this encounter Administered Medications Inactive Administered Medications - up to 3 most recent administrations Medication Order MAR Action Action Date Dose Rate Site bupivacaine PF (Marcaine) 0.25 % injection Intrathecal, As needed, Starting on 05/13/25 at 0307, Until 05/13/25 at 0825, Routine, Anesthesia Intraprocedure Given 05/13/2025 3:07 AM EDT 2 mg fentaNYL (Sublimaze) injection Intravenous, As needed, Starting on 05/13/25 at 0159, Until 05/13/25 at 0825, Routine, Anesthesia Intraprocedure Given 05/13/2025 1:59 AM EDT 50 mcg fentaNYL (Sublimaze) injection Intrathecal, Once PRN Procedure, Starting on 05/13/25 at 0307, Until 05/13/25 at 0307, Routine, Anesthesia Intraprocedure Given 05/13/2025 3:07 AM EDT 25 mcg fentanyl + bupivacaine clinician bolus dose 1-5 mL 1-5 mL, Epidural, As needed, Starting on 05/12/25 at 2342, Until 05/13/25 at 0901, Routine, severe pain, Moderate/Severe Pain > or =3: CPOT; > or =4: FLACC, PAINAD, NPASS, NRS, Colmenares-Bledsoe Faces; > or =5: DVPRS, NIPS Bolus 05/13/2025 5:23 AM EDT 7 mL Bolus 05/13/2025 5:00 AM EDT 10 mL New Bag 05/13/2025 12:14 AM EDT 8 mL lidocaine PF (Xylocaine) 1 % injection Epidural, As needed, Starting on 05/13/25 at 0218, Until 05/13/25 at 0825, Routine, Anesthesia Intraprocedure Given 05/13/2025 2:21 AM EDT 5 mL ropivacaine (PF) (Naropin) 0.2 % epidural infusion Injection, As needed, Starting on 05/13/25 at 0108, Until 05/13/25 at 0825, Routine, Anesthesia Intraprocedure Given 05/13/2025 1:59 AM EDT 8 mL Given 05/13/2025 1:08 AM EDT 8 mL documented in this encounter Additional Health Concerns Assessment Noted Time PHQ-9 Depression Total Score: 0 04/05/20 9:46 AM EDT A Body Mass Index follow-up plan has been documented for the patient 05/15/2025 11:27 AM EDT documented as of this encounter Care Teams Carbonating Stone Cleaner Relationship Specialty Start Date End Date Humera Meadows APRN [address] [place] [address] PCP - General 04/05/25 documented as of this encounter
--- OUTSIDE RECORDS SUMMARY | 2025-05-13 00:03 | XMS_ITS | Encounter Summary ---
Author Organization Healthcare Address [address] [id number] Care Team Providers Care Supervisor Fabrication And Assembly Name Role Phone Humera Meadows APRN Primary Care Provider +1- [phone] Reason for Visit * Auth/Cert (Routine) Specialty Diagnoses / Procedures Referred By Contshakira t Referred To Contact Diagnoses Pre-eclampsia in third trimester Fredi Duncan MD [address] [address] Phone: tel: fax: [facility] [address] [place] [phone] Phone: tel: Referral ID Status Reason Start Date Expiration Date Visits Re quested Visits Authorized [id number] 1 1 Encounter Details Date Type Department Care Team (Late st Contact Info) Description 05/13/2025 1:03 AM EDT Anesthesia Event [facility] [address] [phone] Eddie Cardona, DO [address] [place] [address] Anesthesia Record Procedure Summary Procedure Name Responsible Anesthesiologist Anesthesia Start Time Anesthesia Stop Time Labor Consult Events No events on file. Meds * Agents No agents on file. * Blood No blood administrations on file. Lines, Drains, and Airways No LDAs on file. documented in this encounter Social History Tobacco Use Types Packs/Day Years Used Date Smoking Tobacco: Never Passive Smoke Exposure: Never Smokeless Tobacco: Never Alcohol Use Standard Drinks/Week Comments Not Currently 0 (1 standard drink = 0.6 oz pur e alcohol) PHQ-2 Answer Date Recorded Patient Health Questionnaire-2 Score 0 04/05/2025 PHQ-9 Answer Date Recorded Patient Health Questionnaire-9 Score 0 04/05/2025 [place] Depression Scale Answer Date Recorded [place] Depression Scale Total 4 05/13/2025 The thought [...] drink first t sparkle in the morning (EYE-TRANSPORT NURSE) to steady your nerves or to get rid of a hangover? 0 05/11/2025 CAGE Questionnaire Score 0 025 Comments Yes Sex and Gender Information Value Date Recorded Sex Assigned at Not on file Legal Sex Female 10:37 AM EDT Gender Identity Not on file Sexual Orientation Straight 03/29/2025 11 :10 AM EDT documented as of this encounter Miscellaneous Notes * Anesthesia IP Labor Consult - Eddie Cardona, DO - 05/12/2025 2:57 AM EDT Patient: Meena Julian Procedure Information Date: 05/12/25 Procedure: Labor Consult , pmh of well controlled gestational GERD, but otherwise healthy, GA in childhood without apparent complication, denies family hx of anesthesia complications. Denies AC or known coagulopathy. 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 Use of blood products discussed with patient who consented to blood products. Additional Equipment Requests documented in this encounter Plan of Treatment Not on file documented as of this encounter Visit Diagnoses Not on filedocumented in this encounter Additional Health Concerns Assessment Noted Time PHQ-9 Depression Total Score: 0 04/05/20 9:46 AM EDT A Body Mass Index follow-up plan has been documented for the patient 05/15/2025 11:27 AM EDT documented as of this encounter Care Teams Supervisor Fabrication And Assembly Relationship Specialty Start Date End Date Humera Meadows APRN [address] [place] [address] PCP - General 04/05/25 documented as of this encounter
--- OUTSIDE RECORDS SUMMARY | 2025-05-22 09:30 | XMS_ITS | Encounter Summary ---
Author Organization Healthcare Address [address] [place] [address] Care Team Providers Care Physics Teacher Name Role Phone Humera Meadows APRN Primary Care Provider [phone] Reason for Visit * Reason Comments Nurse Visit Encounter Details Date Type Department Care Team ([facility] Contact Info) Description 05/22/2025 10:30 AM EDT Clinical Support Medical Office Building Obstetrics and Gynecology [address] [facility] [place] [address] Jaqueline Barrett APRN, [facility] [address] [facility] [facility] [address] [place] [address] History of pre-eclampsia (Primary Dx) Social History Tobacco Use Types Packs/Day Years Used Date Smoking Tobacco: Never Passive Smoke Exposure: Never Smokeless Tobacco: Never Alcohol Use Standard Drinks/Week Comments Not Currently 0 (1 standard drink = 0.6 oz pur e alcohol) PHQ-2 Answer Date Recorded Patient Health Questionnaire-2 Score 0 04/05/2025 PHQ-9 Answer Date Recorded Patient Health Questionnaire-9 Score 0 04/05/2025 Haskell Depression Scale Answer Date Recorded Haskell Depression Scale Total 0 05/22/2025 The thought [...] drink first t sparkle in the morning (EYE-CARPENTER FORM) to steady your nerves or to get [...] Sign Reading Time Taken Comments Blood Pressure 131/94 05/22/2025 11:01 AM EDT Pulse 83 05/22/2025 10:42 AM EDT Temperature 36.4 C (97.5 F) 05/22/2025 11:01 AM EDT Respiratory Rate 16 05/22/2025 10:42 AM EDT Oxygen Saturation 98% 05/22/2025 10:42 AM EDT Inhaled Oxygen Concentration - - Weight 60 kg (132 lb 4.4 oz) 05/22/2025 10:42 AM EDT Height 165.1 cm (5' 5 ) 05/22/2025 10:42 AM EDT Body Mass Index 22.01 05/22/2025 10:42 AM EDT documented in this encounter Miscellaneous Notes * Patient Instructions - Jaqueline Barrett, KENNY, LUIS - 05/22/2025 10:30 AM EDT Images from the original note were not included. Understanding Depression You???ve just had a baby. You expected to be excited and happy. But instead you find yourself crying for no reason. You may have trouble coping with your daily tasks. You feel sad, tired, and hopeless most of the time. You may even feel ashamed or guilty. But what you???re going through is not yourfault and you can feel better. Talk to your healthcare provider. He or she can help. What is depression? Depression is a mood disorder that affects the way you think and feel. The most common symptom is afeeling of deep sadness. You may also feel as if you just can???t cope with life. Other symptoms include: Gaining or losing a lot of weight Sleeping too much or too little Feeling tired all the time Feeling restless Crying a lot Having too little or too much appetite. Withdrawing from friends and family Having headaches, aches and pains, or stomach problems that won't go away. Fears of harming your baby Lack of interest in your baby Feeling worthless or guilty No longer finding pleasure in things you used to Having trouble thinking clearly or making decisions Thinking about or suicide Depression after childbirth You may be weepy and tired right after giving . These feelings are normal. They???re sometimescalled the ???baby blues.?? These blues go away after 1 to 2 weeks. However, (meaning ???after ?? ) depression lasts much longer and is more severe than the baby blues. It can makeyou feel sad and hopeless. You may also fear that your baby will be harmed and worry about being a bad mother. What causes depression? The exact cause of [...] provider Call your healthcare provider if you: Cry for no clear reason Have trouble sleeping, eating, and making choices Questions whether you can handle caring for a baby Have intense feelings of sadness, anxiety, or despair that prevent you from being able to do your daily tasks Resources National Dingess of Mental Xclzkp408-012-9381qsj.[facility].nih.gov National [place] on Mental Dimuace017-358-5944cep.[place].org Mental Health Ryjrthb018-426-7915xbh.[facility].org National Suicide Jrrvqru175-054-6876 (800-SUICIDE) [employer] last reviewed this educational content on 01/31/2017 ?? [id number] The [employer]. [address] [place] [address]. All rights reserved. This information is not intended as a substitute for professional medical care. Always follow your healthcare professional's instructions. After Giving : Changing Expectations for Parents Outings with your baby will help form new family bonds. Congratulations on your new baby! Diapers won???t be the only thing you???ll change in the months ahead. Your sense of yourself and how you relate to your partner will also be different. If you have other children, expect some emotional swings, as you and your family try out your new roles. Not always cintia Most new mothers experience some form of the baby blues. These mood swings are caused by hormonal shifts in your body. Stress due to the recent changes in your life and lack of sleep also have an effect. The baby blues may last a few days or up to 2 weeks. You may feel a sense of loss, frustration,or anger. Or you may be sad that having a baby isn???t what you???d imagined. Sometimes a trig gers childhood memories or reminds you about the of a loved one. Balancing the blues Recognize your need to talk, to feel protected, to have private time. Allow yourself to cry, to sit, to think. Ask for help when you need it, and accept help when it???s offered. Knowing your needs is not a weakness. Share your thoughts with your partner. Or picking machine operator helper the phone and call a friend, your mother, a sister, or an aunt. Rest, eat right, and get some light exercise. The mind feels best when the body feels good. Shaping your family Over the next year, your household will go through many changes. If this is your first child, you and your partner will have to adjust to the idea of being a family. If you have older children, help them adjust to the new baby. Sharing chores, time, and attention is something you???ll all need to work on. If you???re a single mother, you may find that your baby has a ???family?? of friends as well as relatives. Share activities As a , your baby has many needs. These must be blended into the family???s style. Take the baby on outings, so he or she is part of the family from the beginning. Involve everyone in activities you all can enjoy doing together. As parents and lovers The demands on your relationship have just increased. So do your best to strengthen your partnership ties. Set aside time to talk every day. Put away the dinner dishes together or take a break beforebedtime. Also, try to spend time alone. It will help you remember why you???re together. Return to sex when it feels right and it???s OK with your healthcare provider. But don???t think of as a form of control. Instead, talk with your healthcare provider about control methods that might be right for this time in your life. When to call your healthcare provider Call your healthcare provider if you have any of the following concerns: You don???t want to be with the baby. You have no interest in eating or are not able to sleep. Your symptoms are not getting better, and you???re getting more upset. You think you may harm yourself or the baby. The Depression After Delivery hotline (606-513-0442) may also be helpful. [employer] last reviewed this educational content on 09/03/2017 ?? 7255-6502 [employer]. [address] [place] [address]. All rights reserved. This information is not intended as a substitute for professional medical care. Always follow your healthcare professional's instructions. After Giving : How to Feel Healthy Helping yourself feel fit is one of the best things you can do for your baby. A little exercise will tone your muscles. You???ll feel stronger and more energized. You???ll also feel more awake and aware. Don???t worry about your weight right now. Your goal is to feel healthy. Part of feeling good is dressing for comfort. If you dress ???smart,?? you can be a busy new mom and still look great. Continue Kegel exercises You may have been told to do Kegel exercises during . These exercises strengthen the muscles that are strained by carrying and delivering the baby. You can return to your Kegels as soon as you feel ready. Why not start today? Squeeze your pelvic floor muscles (the ones that control your urine stream) for at least 5 seconds. Relax, then squeeze again. Work your way up to 50 or 100 Kegels a day. Exercise often Exercise helps you get in shape. It also strengthens your muscles, so you are better fit for lifting the baby. As an added benefit, exercise gives you a sense that you???re doing something good for yourself. Take your baby for a short walk, or spend 10 minutes stretching. If you were active during , you can probably begin light exercise as soon as you feel ready. But be sure to check with your healthcare provider before you begin. Stay off the scale For the first month, think about regaining energy and feeling good, not about losing weight. Losingweight too soon can make you feel more tired. Instead, focus on caring for your baby and eating balanced meals. You may lose some weight without even trying, especially if you???re . Once your energy level is back to normal, you can begin to lose weight. A gradual weight loss of 4 or 5pounds a month is safest. Dress smart You???ll want to be comfortable during the first days after delivery. Wear a robe, pajamas, or sweats -- whatever feels best. Soon you may want to look more like your pre self. Do your hair and wear makeup, if you normally do. A loose-fitting dress may feel good. But do yourself a favor: Don???t reach for your jeans. It???s likely to be a month or more before you can wear them. If leakingbreasts are a problem, put pads inside your bra and dress in layers. If you???re , shirts that open in front or pullover tops are good choices. A scarf or shawl can be used as a drape ifyou breastfeed when others are present. When to call your healthcare provider Remember to schedule your visit. If you delivered by , be seen within 2 weeks. For vaginal delivery, be seen 4 to 6 weeks after the . Also, call your healthcare provider if you have: Heavy bleeding Fever Redness or persistent lump in breasts Inability to void or have a bowel movement after 1 week Severe pain Worsening depression [employer] last reviewed this educational content on 09/03/2017 ?? [id number] [employer]. [address] [place] [address], [place] [address]. All rights reserved. This information is not intended as a substitute for professional medical care. Always follow your healthcare professional's instructions. Healthy Weight Loss After As a new mom, you???re busy taking care of your baby. But you also need to take care of yourself. That includes getting back to a healthy weight. Eating healthy and being physically active can get you back in shape. But don???t ritchie it. Take it slowly. Read on to learn how to safely lose your weight. Weight loss after baby Right after you give , you will lose about 10 pounds. This includes the weight of the baby. Italso includes the placenta and amniotic fluid. Many women lose a little more weight soon after that. You may be eager to lose all of your weight. But don???t try to do that quickly. And don???t start cutting calories. Your body has been through major changes with and . It needs vital nutrients now. This is especially important if you???re . Nursing moms who lose weight too fast can reduce their milk supply. It???s best to take things slowly. For healthy weight loss, aim to lose about 1 to 2 pounds a week.A combination of healthy foods and being active is the safest method. Here???s how to get started: Eating healthy Talk with your healthcare provider. He or she can advise you on a healthy eating plan that???s right for you. Stick with a well-balanced diet. This will boost your energy level. And it will give you the nutrients you and your baby need. In general: Choose lean proteins, high-fiber foods, and whole grains. Eat a mix of fruits and vegetables each day. Limit sweets and fatty or fried foods. Drink plenty of water. Don???t fill up on juice and soda. Limit alcohol. If you are nursing, don???t drink alcohol. Getting active When can you start being active again? It???s always best to talk with your healthcare provider first. But if you had a healthy and a vaginal with no problems, you can likely do lightexercise a few days after delivery. Or as soon as you feel ready. If you had a section, or your vaginal delivery was complicated, talk with your provider. Your body needs some time to heal. You will likely need to wait 4 to 6 weeks. Once your provider says it???s OK: Start slowly. Don???t overdo it. Walking is great for new moms. So is swimming. Try to exercise 20 to 30 minutes on most days of the week. It may be easier to break this up into shorter amounts of time. Over time, aim for at least 150 minutes of moderate-intensity aerobic activity each week. Add in muscle-strengthening exercises with your provider???s approval. These include Kegel exercises, yoga, and Pilates. Drink plenty of water. Stop right away if you feel pain when exercising When you are has many benefits for your baby and for you. It can even help you lose the weight yougained in . Nursing moms have special nutritional needs. You???ll need about 500 more calories from healthy foods each day, than you did before . This will help you keep up a good milk supply. But also centeno calories. And it triggers the release of a hormone that makes the uterus contract. The uterus then goes back to its normal size more quickly. This can help you lose weight a bit faster. The exact number of added calories you need when will depend on: How active you are Your age Your body mass index (BMI) If you are only If you are and formula feeding Talk with your healthcare provider to find out how many added calories you need. You can also find a helpful MyPlate Plan for moms. Being overweight before baby If you were overweight before your , you are not alone. About 65% of women are overweight or obese when they get . But that can cause problems. It makes it harder to lose your weight. And it raises your risk for long-term (chronic) obesity. This can then lead to other conditions such as diabetes and heart disease. Talk with your healthcare provider. He or she can help you come up with a healthy eating and exercise plan. Your provider may also refer you to a finished garment inspector. Sticking to healthy habits will help you reach a good weight. When to call your healthcare provider Call your healthcare provider right away if any of these occur: You have new symptoms Symptoms get worse [employer] last reviewed this educational content on 06/03/2019 ?? 8930-1093 The [employer]. [address] [place] [address]. All rights reserved. This information is not intended as a substitute for professional medical care. Always follow your healthcare professional's instructions. For New Mothers: Staying Fit After Delivery After you deliver your baby, you can start to exercise when you feel ready. Let your body be your guide. Most women are ready to exercise after 6 weeks, where some women will be ready a few days after giving . If you???ve had a section, you will need more time. Ask your healthcare provider when it is safe to start exercising again. Exercise tips for new mothers You can start doing Kegel exercises as soon as you deliver your baby. Do them at least 10 times a day to help avoid bladder problems later on. Kegel exercises help strengthen your pelvic muscles. To do them, squeeze the muscles that you use to stop passing urine (do not do this while urinating). Hold that squeeze for a count of 10, then release. You will want to resume other exercise gradually and talk to your healthcare provider before starting. Always exercise with care. When you first start exercising after giving , try simple exercises that help strengthen major muscle groups, including abdominal and back muscles. Slowly add moderate- intensity exercise. Try to work up to at least 150 minutes of moderate-intensity aerobic activity every week. Moderate intensity means you are moving enough to raise your heart rate and start sweating. You can still talk normally. But you cannot sing. Muscle-strengthening exercises should be done along with your aerobic activity on at least 2 days a week. Look for ways to combine exercising with being with your new baby. Try putting your baby into a front pack or in the stroller and take a walk. Strengthening stomach muscles Many new mothers want to strengthen their stomach muscles after giving . Try this exercise when you???re ready to resume your program. It will strengthen the front and side muscles of your stomach: Lie on your back with your knees bent and feet flat on the floor. Cross your arms over your stomach. Use your fingers to gently pull the sides of the stomach toward the middle of your body. Exhale and try to pull the stomach muscles toward your spine. Gently raise your shoulders off the floor, no more than 6 to 8 inches. Hold for 5 seconds. Repeat 5 times. [employer] last reviewed this educational content on 09/03/2017 ?? [id number] [employer]. [address] [place] [address]. All rights reserved. This information is not intended as a substitute for professional medical care. Always follow your healthcare professional's instructions. Breast Care After A few days after your baby???s , your breasts will swell with milk. They are likely to feel tender and heavy. This is normal. To help prevent breast soreness and control irritation, follow thesetips: Moist heat, like a shower, helps to promote the release of breastmilk. Coping with swelling Here are tips to cope with swelling: Use cold compresses or an ice pack to help reduce the ache or pain. Breastfeed often to keep milk from clogging your breast ducts. If your nipples are flat from breast swelling, hand express some milk. Squeeze out a few drops of milk by massaging and compressing your breasts. If you have swelling with pain or fever, call your healthcare provider. Preventing sore nipples Here are tips to prevent sore nipples: Make sure baby latches on to your breast correctly. The baby???s mouth should be opened very wide and your entire areola should be in the baby's mouth. You can let milk dry on your nipples. This dried milk can protect the skin on your nipple. Do not use alcohol, soap, or scented cleansers on your breasts. These can cause the nipples to dry and crack. Do not wear nursing pads that are lined with plastic. They hold in moisture and can cause chapping. If you have cracked or bleeding nipples, consult your healthcare provider or a agriculture consultant. He or she will make sure that your baby's latch is correct and may suggest topical treatment, likepure lanolin. Choosing a good bra Wearing the right-sized bra is especially important now. If a bra is too tight, it may cause a ductin your breast to clog and become irritated. If possible, have a salesperson help fit you for a newbra. Look for one that???s 100% cotton and comfortable. Also, choose a bra with wide straps that won???t dig into your back and shoulders. If you???re , find a nursing bra that allows you to uncover one breast at a time. If you are not Here are tips to avoid discomfort: Avoid stimulation of nipples Wear a tight-fitting bra Apply cold compresses or ice packs for discomfort Call your healthcare provider Call your healthcare provider right away if you have any of the following: A fever or chills Extreme tiredness and body aches, as if you have the flu Burning or pain in one or both breasts Red streaks on a breast Hard or lumpy spots in one or both breasts A feeling of warmth or heat in one or both breasts Breasts so swollen your baby cannot latch on to the nipples Nipples that are cracked or bleeding Low milk supply or your milk does not flow freely [employer] last reviewed this educational content on 08/03/2017 ?? [id number] [employer]. [address] [place] [address]. All rights reserved. This information is not intended as a substitute for professional medical care. Always follow your healthcare professional's instructions. * Progress Notes - Jaqueline Barrett APRN, CNM - 05/22/2025 10:30 AM EDT Note Subjective History of Present Illness The patient is a female who presents for BP check, requests to be seen. 05/13/2025 at 38 weeks gestation due to preeclampsia. Not taking antihypertensives. She reportsexperiencing frequent dizzy spells, even while seated, and occasional tunnel vision. She describes feeling clammy and pale. She has been monitoring her blood pressure at home, mostly 120s/80s, occasionally 90s diastolic. Denies JIMENEZ, black spots in vision, RUQ pain, changes in HR. Swelling has improved since coming home from the hospital. Pt and family are concerned about HELLP. Formula feeding. Has breastmilk, but is not stimulating, hoping it resolves soon. Breasts have beensore, but feeling somewhat better today. She sustained an internal tear during delivery, which was sutured. She describes the area as slightly bumpy but otherwise normal. She occasionally feels anxious, which she attributes to discomfort and the demands of caring for her , but believes she is managing well. She reports adequate food intake but admits to not drinking enough water today, although she did yesterday. Objective Visit Vitals BP (!) 131/94 (BP Location: Right arm, Patient Position: Sitting, BP Cuff Size: Adult) Pulse 83 Resp 16 Physical Exam Constitutional: Appearance: Normal appearance. She is normal weight. Cardiovascular: Rate and Rhythm: Normal rate. Neurological: Mental Status: She is alert and oriented to person, place, and time. Psychiatric: Mood and Affect: Mood normal. Behavior: Behavior normal. Assessment/Plan Assessment & Plan History of pre-eclampsia Orders: CBC W/O Differential; Future Comprehensive Metabolic Panel, Plasma; Future -Keep BP log at home. Report to hospital with levels 160/110 or higher. Assessment & Plan 1. : - Routine care. - Advised to avoid stimulating breasts and wear a supportive bra to help breastmilk resolve. - Advised to maintain a balanced diet with adequate protein intake and hydration of at least 60 ounces of water daily. Follow-up: The patient will follow up in 1 week for a blood pressure check and at 6wks for her routine appointment. Verbal consent was obtained to use ambient listening technology to assist in the documentation of the encounter: yes documented in this encounter Plan of Treatment Not on file documented as of this encounter Results * (ABNORMAL) Comprehensive Metabolic Panel, Plasma (05/22/2025 11:34 AM EDT) Glucose, Plasma 76 74 - 99 mg/dL 05/22/2025 3:14 PM EDT [facility] BUN, Plasma 18 7 - 21 mg/dL 05/22/2025 3:14 PM EDT [facility] Creatinine, Plasma 0.65 0.60 - 1.10 mg/dL 05/22/2025 3:14 PM EDT [facility] BUN/Creatinine Ratio 28 05/22/2025 3:14 PM EDT [facility] Sodium, Plasma 140 136 - 145 mmol/L 05/22/2025 3:14 PM EDT [facility] Potassium, Plasma 4.6 3.6 - 4.9 mmol/L 05/22/2025 3:14 PM EDT [facility] Chloride, Plasma 104 97 - 107 mmol/L 05/22/2025 3:14 PM EDT [facility] CO2, Plasma 23 22 - 29 mmol/L 05/22/2025 3:14 PM EDT [facility] Anion Gap 13 6 - 16 mmol/L 05/22/2025 3:14 PM EDT [facility] Total Calcium, Plasma 9.7 8.9 - 10.2 mg/dL 05/22/2025 3:14 PM EDT [facility] Total Protein 7.9 6.3 - 7.9 g/dL 05/22/2025 3:14 PM EDT [facility] Albumin, Plasma 3.9 3.5 - 5.2 g/dL 05/22/2025 3:14 PM EDT [facility] AST, Plasma 26 10 - 35 U/L 05/22/2025 3:14 PM EDT [facility] ALT, Plasma 41(H) 10 - 35 U/L 05/22/2025 3:14 PM EDT [facility] Alkaline Phosphatase, Plasma 173(H) 35 - 104 U/L 05/22/2025 3:14 PM EDT [facility] Total Bilirubin, Plasma 0.3 0.2 - 1.1 mg/dL 05/22/2025 3:14 PM EDT [facility] eGFRcr 126.3 mL/min/1.7 3m*2 05/22/2025 3:14 PM EDT [facility] Comment:Reported eGFRcr in m L/min/1.73m2 is based the CKD-EPI 2020 equation that does not use a race coefficient. Blood Venous blood specimen / Unknown Venipuncture / Unknown 05/22/2025 11:34 AM EDT 05/22/2025 11:34 AM EDT us Jaqueline Barrett MANAGER RN CASE, CNM LAB BLOOD ORDERABLES Final Result [facility] [address] [place] [id number] * (ABNORMAL) CBC W/O Differential (05/22/2025 11:34 AM EDT) WBC Count 6.39 3.70 - 10.30 10*3/uL LAB HEMATOLOGY METHOD 05/22/2025 2:59 PM EDT [facility] RBC Count 4.22 3.90 - 5.20 10*6/uL LAB HEMATOLOGY METHOD 05/22/2025 2:59 PM EDT [facility] HGB 12.3 11.2 - 15.7 g/dL LAB HEMATOLOGY METHOD 05/22/2025 2:59 PM EDT [facility] HCT 39.6 34.0 - 45.0 % LAB HEMATOLOGY METHOD 05/22/2025 2:59 PM EDT [facility] Platelet Count 350 155 - 369 10*3/uL LAB HEMATOLOGY METHOD 05/22/2025 2:59 PM EDT [facility] MCV 94 79 - 98 fL LAB HEMATOLOGY METHOD 05/22/2025 2:59 PM EDT [facility] MCH 29.1 26.0 - 32.0 pg LAB HEMATOLOGY METHOD 05/22/2025 2:59 PM EDT [facility] MCHC 31.1 30.7 - 35.5 g/dL LAB HEMATOLOGY METHOD 05/22/2025 2:59 PM EDT [facility] RDW 14.6(H) 11.5 - 14.5 % LAB HEMATOLOGY METHOD 05/22/2025 2:59 PM EDT [facility] MPV 9.7 8.8 - 12.5 fL LAB HEMATOLOGY METHOD 05/22/2025 2:59 PM EDT [facility] nRBC 0.0 <=0.0 per 100 WBCs LAB HEMATOLOGY METHOD 05/22/2025 2:59 PM EDT [facility] Blood Venous blood specimen / Unknown Venipuncture / Unknown 05/22/2025 11:34 AM EDT 05/22/2025 11:34 AM EDT us Jaqueline Barrett APRN, CNM LAB BLOOD ORDERABLES Final Result [facility] [address] [place] [address] documented in this encounter Visit Diagnoses Diagnosis History of pre-eclampsia- Primary documented in this encounter Additional Health Concerns Assessment Noted Time PHQ-9 Depression Total Score: 0 04/05/20 9:46 AM EDT A Body Mass Index follow-up plan has been documented for the patient 05/22/2025 11:57 AM EDT documented as of this encounter Care Teams Physics Teacher Relationship Specialty Start Date End Date Humera Meadows APRN [address] [place] [address] PCP - General 04/05/25 documented as of this encounter
--- OUTSIDE RECORDS SUMMARY | 2025-06-16 10:55 | XMS_ITS | Encounter Summary ---
Author Organization Healthcare Address [address] [place] [address] Care Team Providers Care Device Test Engineer Name Role Phone Humera Meadows APRN Primary Care Provider +1- [phone] Encounter Details Date Type Department Care Team [...] Recorded Patient Health Questionnaire-9 Score 0 04/05/2025 [place] Depression Scale Answer Date Recorded [place] Depression Scale Total 0 04/05/2025 The thought [...] drink first t sparkle in the morning (EYE-GROUND SERVICE EQUIPMENT MECHANIC) to steady your nerves or to get [...] documented as of this encounter Care Teams Device Test Engineer Relationship Specialty Start Date End Date Humera Meadows APRN [address] [place] [address] PCP - General 04/05/25 documented as of this encounter
--- OUTSIDE RECORDS SUMMARY | 2025-06-16 10:56 | XMS_ITS | Encounter Summary ---
Author Organization Healthcare Address [address] [place] [address] Care Team Providers Care Plow Shaker Name Role Phone Humera Meadows APRN Primary Care Provider +1- [phone] Encounter Details Date Type Department Care Team ([facility] Contact Info) Description 05/22/2025 Results Follow-Up Medical Office Building Obstetrics and Gynecology [address], [address] [place] [address] Jaqueline Barrett, KENNY, [address] [place] [address] Social History Tobacco Use Types Packs/Day Years Used Date Smoking Tobacco: Never Passive Smoke Exposure: Never Smokeless Tobacco: Never Alcohol Use Standard Drinks/Week Comments Not Currently 0 (1 standard drink = 0.6 oz pur e alcohol) PHQ-2 Answer Date Recorded Patient Health Questionnaire-2 Score 0 04/05/2025 PHQ-9 Answer Date Recorded Patient Health Questionnaire-9 Score 0 04/05/2025 [place] Depression Scale Answer Date Recorded [place] Depression Scale Total 0 05/22/2025 The thought [...] drink first t sparkle in the morning (EYE-PEOPLESOFT BUSINESS ANALYST) to steady your nerves or to [...] documented as of this encounter Care Teams Plow Shaker Relationship Specialty Start Date End Date Humera Meadows APRN [address] [place] [address] PCP - General 04/05/25 documented as of this encounter
--- OUTSIDE RECORDS SUMMARY | 2025-06-16 10:57 | XMS_ITS | Encounter Summary ---
Author Organization Healthcare Address [address] [place] [address] Care Team Providers Care Compliance Lead Name Role Phone Humera Meadows APRN Primary Care Provider +1- [phone] Encounter Details Date Type Department Care Team [...] Recorded Patient Health Questionnaire-9 Score 0 04/05/2025 [place] Depression Scale Answer Date Recorded [place] Depression Scale Total 0 04/05/2025 The thought [...] documented as of this encounter Care Teams Compliance Lead Relationship Specialty Start Date End Date Humera Meadows APRN [address] [place] [address] PCP - General 04/05/25 documented as of this encounter
--- OUTSIDE RECORDS SUMMARY | 2025-06-16 10:57 | XMS_ITS | Encounter Summary ---
Author Organization Healthcare Address [address] [place] [address] Care Team Providers Care Clinical Research Analyst Name Role Phone Humera Meadows APRN Primary Care Provider +1- [phone] Encounter Details Date Type Department Care Team [...] Recorded Patient Health Questionnaire-9 Score 0 04/05/2025 [place] Depression Scale Answer Date Recorded [place] Depression Scale Total 0 04/05/2025 The thought [...] drink first t sparkle in the morning (EYE-INSULATION BOARD BACK TENDER) to steady your nerves or to get [...] documented as of this encounter Care Teams Clinical Research Analyst Relationship Specialty Start Date End Date Humera Meadows APRN [address] [place] [address] PCP - General 04/05/25 documented as of this encounter
--- OUTSIDE RECORDS SUMMARY | 2025-06-16 10:57 | XMS_ITS | Encounter Summary ---
Author Organization Healthcare Address [address] [place] [address] Care Team Providers Care Chip Washer Name Role Phone Humera Meadows APRN Primary Care Provider +1- [phone] Encounter Details Date Type Department Care Team [...] Recorded Patient Health Questionnaire-9 Score 0 04/05/2025 [place] Depression Scale Answer Date Recorded [place] Depression Scale Total 0 05/22/2025 The thought [...] drink first t sparkle in the morning (EYE-BLASTING COAL MINER) to steady your nerves or to get [...] documented as of this encounter Care Teams Chip Washer Relationship Specialty Start Date End Date Humera Meadows APRN [address] [place] [address] PCP - General 04/05/25 documented as of this encounter
--- OUTSIDE RECORDS SUMMARY | 2025-06-16 10:57 | XMS_ITS | Clinical Summary ---
Author Organization Healthcare Address [address] [place] [address] Care Team Providers Care Drawing Hand Name Role Phone Humera Meadows APRN Primary Care Provider +1- [phone] Allergies Active Allergy Reactions Criticality Noted Date [...] Obstetrics and Gynecology [address] [facility] [address], [address] [place] [address] Jaqueline Barrett APRN, LUIS History of pre-eclampsia (Primary Dx) 05/22/2025 Results Follow-Up [facility] Obstetrics and Gynecology [address] [facility] [address], [address] [place] [address] Jaqueline Barrett APRN, CNM 05/22/2025 Travel 05/13/2025 1:03 AM EDT Anesthesia Event [facility] Delivery [address] [place] [address] Eddie Cardona, DO 05/13/2025 12:04 AM EDT Anesthesia Event [facility] [address] [place] [address] Victorino Rodriguez MD McClanahan, Easton D, DO 05/11/2025 6:39 PM EDT - 05/15/2025 1:42 PM EDT Hospital Encounter [facility] Mother [facility] Baby Unit [address] [place] [address] Fredi Duncan MD Marcum, Miriam B, MD Discharge Disposition: Home or Self Care 05/11/2025 Travel 05/10/2025 3:30 PM EDT Routine [facility] Obstetrics and Gynecology [address], [address] [place] [phone] Mayuri Husain APRN 38 weeks gestation of (Primary Dx) 05/10/2025 Travel 05/03/2025 3:15 PM EDT Routine [facility] Obstetrics and Gynecology [address], [address] [place] [phone] Vickie Luevano MD care, first , antepartum (Primary Dx); 37 weeks gestation of 05/03/2025 Travel 04/27/2025 8:40 AM EDT Routine [facility] Obstetrics and Gynecology [address] [facility] [address], [address] [place] [address] Belia Mcgregor APRN, HIRAM care, first , antepartum (Primary Dx) 04/27/2025 Travel 04/20/2025 8:30 AM EDT Routine [facility] Obstetrics and Gynecology [address], [address] [place] [address] Connie Orourke APRN, DNP Encounter for supervision of normal first in third trimester (Primary Dx) 04/20/2025 Travel 04/13/2025 11:00 AM EDT - 04/13/2025 11:59 PM EDT Hospital Encounter [facility] Obstetrics and Gynecology [address], [address] [place] [address] Encounter for supervision of normal first in third trimester Discharge Disposition: Home or Self Care 04/13/2025 Travel 04/05/2025 9:30 AM EDT Initial [facility] Obstetrics and Gynecology [address], [address] [place] [address] Connie Orourke APRN, DNP GA: [id number] 04/05/2025 [...] Recorded Patient Health Questionnaire-9 Score 0 04/05/2025 [place] Depression Scale Answer Date Recorded [place] Depression Scale Total 0 05/22/2025 The thought [...] drink first t sparkle in the morning (EYE-COMPENSATION PROGRAMS MANAGER) to steady your nerves or to [...] 19+ 3-dose series) 2019 [facility]-Pap Smear 2021 [id number] Vaccine (1 - 2024- season) 2025 [facility]-Influenza Vaccine (#1) 2025 [facility]-Depression [...] LAB HEMATOLOGY METHOD 05/22/2025 2:59 PM EDT [facility] RBC Count 4.22 3.90 - 5.20 10*6/uL LAB HEMATOLOGY METHOD 05/22/2025 2:59 PM EDT [facility] HGB 12.3 11.2 - 15.7 g/dL LAB HEMATOLOGY METHOD 05/22/2025 2:59 PM EDT [facility] HCT 39.6 34.0 - 45.0 % LAB HEMATOLOGY METHOD 05/22/2025 2:59 PM EDT [facility] Platelet Count 350 155 - 369 10*3/uL LAB HEMATOLOGY METHOD 05/22/2025 2:59 PM EDT [facility] MCV 94 79 - 98 fL LAB HEMATOLOGY METHOD 05/22/2025 2:59 PM EDT [facility] MCH 29.1 26.0 - 32.0 pg LAB HEMATOLOGY METHOD 05/22/2025 2:59 PM EDT [facility] MCHC 31.1 30.7 - 35.5 g/dL LAB HEMATOLOGY METHOD 05/22/2025 2:59 PM EDT [facility] RDW 14.6(H) 11.5 - 14.5 % LAB HEMATOLOGY METHOD 05/22/2025 2:59 PM EDT [facility] MPV 9.7 8.8 - 12.5 fL LAB HEMATOLOGY METHOD 05/22/2025 2:59 PM EDT [facility] nRBC 0.0 <=0.0 per 100 WBCs LAB HEMATOLOGY METHOD 05/22/2025 2:59 PM EDT [facility] Blood Venous blood specimen / Unknown Venipuncture / Unknown 05/22/2025 11:34 AM EDT 05/22/2025 11:34 AM EDT Jaqueline Barrett APRN, CNDat LAB BLOOD ORDERABLES Final Result [facility] [address] [place] [address] * (ABNORMAL) Comprehensive Metabolic Panel, Plasma (05/22/2025 11:34 AM EDT) Glucose, Plasma 76 74 - 99 mg/dL 05/22/2025 3:14 PM EDT [facility] BUN, Plasma 18 7 - 21 mg/dL 05/22/2025 3:14 PM EDT [facility] Creatinine, Plasma 0.65 0.60 - 1.10 mg/dL 05/22/2025 3:14 PM EDT [facility] BUN/Creatinine Ratio 28 05/22/2025 3:14 PM EDT [facility] Sodium, Plasma 140 136 - 145 mmol/L 05/22/2025 3:14 PM EDT [facility] Potassium, Plasma 4.6 3.6 - 4.9 mmol/L 05/22/2025 3:14 PM EDT [facility] Chloride, Plasma 104 97 - 107 mmol/L 05/22/2025 3:14 PM EDT [facility] CO2, Plasma 23 22 - 29 mmol/L 05/22/2025 3:14 PM EDT [facility] Anion Gap 13 6 - 16 mmol/L 05/22/2025 3:14 PM EDT [facility] Total Calcium, Plasma 9.7 8.9 - 10.2 mg/dL 05/22/2025 3:14 PM EDT [facility] Total Protein 7.9 6.3 - 7.9 g/dL 05/22/2025 3:14 PM EDT [facility] Albumin, Plasma 3.9 3.5 - 5.2 g/dL 05/22/2025 3:14 PM EDT [facility] AST, Plasma 26 10 - 35 U/L 05/22/2025 3:14 PM EDT [facility] ALT, Plasma 41(H) 10 - 35 U/L 05/22/2025 3:14 PM EDT [facility] Alkaline Phosphatase, Plasma 173(H) 35 - 104 U/L 05/22/2025 3:14 PM EDT [facility] Total Bilirubin, Plasma 0.3 0.2 - 1.1 mg/dL 05/22/2025 3:14 PM EDT [facility] eGFRcr 126.3 mL/min/1.7 3m*2 05/22/2025 3:14 PM EDT [facility] Comment:Reported eGFRcr in m L/min/1.73m2 is based the CKD-EPI 2020 equation that does not use a race coefficient. Blood Venous blood specimen / Unknown Venipuncture / Unknown 05/22/2025 11:34 AM EDT 05/22/2025 11:34 AM EDT Jaqueline Barrett APRN, CNM LAB BLOOD ORDERABLES Final Result [facility] [address] [place] [id number] * CSE Block (05/13/2025 2:59 AM EDT) [...] of3 resultswithin the time period is included. [facility] Syphilis Antibody (IgG+IgM) Nonreactive Nonreactive 05/12/2025 5:12 AM EDT [facility] Comment:Nonreactive. No sero logic evidence of syphilis. No follow-up necessary unless clinically indicated (e.g., early syphilis). Blood Venous blood specimen / Unknown Venipuncture / Unknown 05/12/2025 3:58 AM EDT 05/12/2025 4:21 AM EDT us Fredi Duncan MD LAB BLOOD ORDERABLES Meryl massey Result [facility] [address] [place] [address] * (ABNORMAL) OB Panel Pre-Eclampsia (05/12/2025 3:58 AM EDT) Only the most recent of2 resultswithin the time period is included. Pathologist [facility] Uric Acid, Plasma 5.1 3.1 - 7.1 mg/dL 05/12/2025 4:53 AM EDT [facility] Creatinine, Plasma 0.63 0.60 - 1.10 mg/dL 05/12/2025 4:53 AM EDT [facility] ALT, Plasma 18 10 - 35 U/L 05/12/2025 4:53 AM EDT [facility] AST, Plasma 39(H) 10 - 35 U/L 05/12/2025 4:53 AM EDT [facility] Comment:Hemolyzed, result ma y be falsely increased. LDH, Plasma 372(H) 116 - 250 U/L 05/12/2025 4:53 AM EDT [facility] Comment:Hemolyzed, result ma y be falsely increased. eGFRcr 127.2 mL/min/1.7 3m*2 05/12/2025 4:53 AM EDT [facility] Comment:Reported eGFRcr in m L/min/1.73m2 is based the CKD-EPI 2020 equation that does not use a race coefficient. Blood Venous blood specimen / Unknown Venipuncture / Unknown 05/12/2025 3:58 AM EDT 05/12/2025 4:20 AM EDT us Fredi Duncan MD LAB BLOOD ORDERABLES Meryl massey Result [facility] [address] [place] [address] * Protein, Random, Urine with Creatinine (05/11/2025 9:05 PM EDT) Protein, Urine 6 mg/dL 05/11/2025 9:44 PM EDT [facility] Creatinine, Urine 16 mg/dL 05/11/2025 9:44 PM EDT [facility] Protein/Creatin ine Ratio 0.4 mg/mg Creat 05/11/2025 9:44 PM EDT [facility] Urine Urine specimen obtained by clean catch procedure / Unknown Non-blood Collection / Unknown 05/11/2025 9:05 PM EDT 05/11/2025 9:13 PM EDT Fredi Duncan MD LAB URINE ORDERABLES Meryl l Result Performing Organization Address City/[facility]/ZIP Co de Phone Number [facility] [address] [place] [address] * Type and screen (05/11/2025 9:05 PM EDT) Only the most recent of2 resultswithin the time period is included. Pathologist [facility] ABO/Rh O Positive 05/11/2025 9:11 PM EDT BLO[facility] Antibody Screen Negative 05/11/2025 9:11 PM EDT BLO[facility] Specimen Expiration 05/14/2025 23:59 05/11/2025 9:11 PM EDT BLO[facility] Blood Venous blood specimen / Unknown Venipuncture / Unknown 05/11/2025 9:05 PM EDT 05/11/2025 9:11 PM EDT Fredi Duncan MD LAB BLOOD BANK TEST ORDER SONYA Final Result Performing Organization Address [facility] Co de Phone Number BLOOD BANK [address] [place] [address] * HIV 1 & 2 Antibody/Antigen Screen (05/03/2025 4:09 PM EDT) Pathologist [facility] HIV 1 & 2 Antibody/Antigen Screen Non Reactive Non Reactive 05/03/2025 6:02 PM EDT [facility] Comment:Screening for HIV 1 & 2 antibodies, and P24 antigen is NONREACTIVE. No confirmatory testing is required. Blood Venous blood specimen / Unknown Venipuncture / Unknown 05/03/2025 4:09 PM EDT 05/03/2025 4:09 PM EDT Connie Orourke STOPPERER ASSEMBLER, DNP LAB BLOOD ORDERABLES Final Result Performing Organization Address City/[facility]/ZIP Co de Phone Number [facility] [address] [place] [address] * Hepatitis C Antibody w/Reflex to HCV Quant PCR (05/03/2025 4:09 PM EDT) Pathologist [facility] Hepatitis C Antibody Negative Negative 05/03/2025 5:52 PM EDT [facility] Blood Venous blood specimen / Unknown Venipuncture / Unknown 05/03/2025 4:09 PM EDT 05/03/2025 4:09 PM EDT us Connie Orourke APRN, DNP LAB BLOOD ORDERABLES Final Result Performing Organization Address City/[facility]/ZIP Co de Phone Number [facility] [address] [place] [address] * (ABNORMAL) Rubella Antibody IgG (05/03/2025 4:09 PM EDT) Rubella Antibody IgG Positive(A ) Negative 05/03/2025 7:50 PM EDT [facility] Comment: Rubella IgG Result Interpretation: [...] BLOOD ORDERABLES Final Result Performing Organization Address [facility]/ZIP Co de Phone Number [facility] [address] [place] [address] * Hepatitis B Surface Antigen (05/03/2025 4:09 PM EDT) Pathologist [facility] Hepatitis B Surf Antigen Negative Negative 05/03/2025 6:36 PM EDT [facility] Blood Venous blood specimen / Unknown Venipuncture / Unknown 05/03/2025 4:09 PM EDT 05/03/2025 4:09 PM EDT us Connie Orourke APRN, DNP LAB BLOOD ORDERABLES Final Result [facility] [address] [place] [address] * Group B Streptococcus Screen by Culture (04/27/2025 9:09 AM EDT) Culture No beta hemolytic Streptococcus Group B isolated 04/30/2025 12:[address] [facility] Swab Rectovaginal / Unknown Non-blood Collection / Unknown 04/27/2025 9:09 AM EDT 04/27/2025 9:09 AM EDT Belia Mcgregor APRN, DNP LAB MICROBIOLOGY - GENE RAL ORDERABLES Final Result Performing Organization Address City/[facility]/[place] [address] * (ABNORMAL) Group B Streptococcus by PCR (04/27/2025 9:09 AM EDT) Group B Streptococcus PCR Result Detected( A) Not Detected 04/29/2025 9:[address] [facility] Comment:Note: If your patien t has a penicillin allergy, please contact the laboratory [phone] to perform antibiotic susceptibility testing. The specimen will be saved for one month. Swab Rectovaginal / Unknown Non-blood Collection / Unknown 04/27/2025 9:09 AM EDT 04/27/2025 9:09 AM EDT Narrative [facility] - 04/29/2025 9:46 AM EDT [...] RAL ORDERABLES Final Result Performing Organization Address City/[facility]/ZIP Co de Phone Number [facility] [address] [place] [address] * OB US 14+ Weeks Anatomy Scan (04/13/2025 11:42 AM EDT) Anatomical Region Laterality Modality Body Ultrasound 04/13/2025 11:2 3 AM EDT Impressions 04/13/2025 11:52 AM EDT The OB Ultrasound you requested has been resulted. Please navigate to the Imaging tab in [employer] for review. This message has been generated by the interface. Narrative Procedure Note Roxi Seo MD - 04/13/2025 IMPRESSION: The OB Ultrasound you requested has been resulted. Please navigate to theImaging tab in [employer] for review. This message has been generated by [employer]. us Connie Orourke APRN, DNP IMG OB US PROCEDURES Final Result from Last 3 Months Insurance JHONATHAN Rios [id number] [facility] [employer] MEDICA[employer] Advance Directives * Full Code (Latest Code Status on File) Date Activated Date Inactivated Comments 05/11/2025 9:57 PM 05/15/2025 3:42 PM Question Answer Comments I have reviewed the capacity from the link above and, if needed, have updated to appropriate status: Yes Care Teams Drawing Hand Relationship Specialty Start Date End Date Humera Meadows APRN [address], [place] [id number] PCP - General 04/05/25
--- OUTSIDE RECORDS SUMMARY | 2025-06-16 10:57 | XMS_ITS | Encounter Summary ---
Author Organization Healthcare Address [address] [place] [address] Care Team Providers Care Agency Owner Name Role Phone Humera Meadows APRN Primary Care Provider +1- [phone] Encounter Details Date Type Department Care Team [...] Recorded Patient Health Questionnaire-9 Score 0 04/05/2025 [place] Depression Scale Answer Date Recorded [place] Depression Scale Total 0 04/05/2025 The thought [...] documented as of this encounter Care Teams Agency Owner Relationship Specialty Start Date End Date Humera Meadows APRN [address] [place] [address] PCP - General 04/05/25 documented as of this encounter
--- OUTSIDE RECORDS SUMMARY | 2025-06-16 10:57 | XMS_ITS | Encounter Summary ---
Author Organization Healthcare Address [address] [place] [address] Care Team Providers Care Wildlife Forensic Geneticist Name Role Phone Humera Meadows APRN Primary Care Provider +1- [phone] Encounter Details Date Type Department Care Team [...] Recorded Patient Health Questionnaire-9 Score 0 04/05/2025 [place] Depression Scale Answer Date Recorded [place] Depression Scale Total 0 04/05/2025 The thought [...] documented as of this encounter Care Teams Wildlife Forensic Geneticist Relationship Specialty Start Date End Date Humera Meadows APRN [address] [place] [address] PCP - General 04/05/25 documented as of this encounter
--- NOTE | 2025-06-16 11:00 | US_ITS ---
FINAL REPORT TECHNIQUE: Multiple transverse and longitudinal images CLINICAL HISTORY: elevated liver enzymes, history of preeclampsia COMPARISON: None FINDINGS: There are small echogenic foci in the gallbladder that adhere to the gallbladder wall, favor small polyps rather than nonshadowing stones. The largest measure approximately 4 mm in size. No gallbladder wall thickening is noted. No biliary ductal dilatation is appreciated. No fluid collections are seen. The liver is unremarkable in appearance. Limited portions of the right kidney are unremarkable. Pancreas is largely obscured. IMPRESSION: Small echogenic foci are present in the gallbladder adherent to the wall, favor small polyps rather than nonshadowing stones. The liver is unremarkable. Reviewed, Interpreted and Dictated by Ana Pettit MD Transcribed by Thu Ames Authenticated and [facility]
== END 2025-06-16 23:59 | disposition home or self-care (01) ==
LOC: RAD 10:52
PROVIDERS: PCP Nurse Practitioner Family; Visit Provider Nurse Practitioner Family
DX: R93.2 Abnormal findings on diagnostic imaging of liver and biliary tract (principal); R74.8 Abnormal levels of other serum enzymes; Z87.59 Personal history of other complications of pregnancy, childbirth and the puerperium
CPT/HCPCS: 76705